=== PATIENT | male | born 1985 | race American Indian/Alaskan Native ===

== ENCOUNTER 2016-06-25 06:51 | Inpatient (IN) | payer SELFPAY ==
[2016-06-25] MEDS ORDERED: NACL 0.9% 1000 ML 1,000 ML ONE (07:09)
[2016-06-25] MEDS ORDERED: NACL 0.9% 1000 ML 1,000 ML IV ONE ×3 (07:18→07:19)
[2016-06-25] MEDS ORDERED: D50W (25GM) IV PRN ×2 (07:19→10:42)
[2016-06-25 07:35] LABS: Eosinophils % (Auto) 0.2 % (0.0-4.3)
[2016-06-25] MEDS ORDERED: PROTONIX IV ONE (07:36)
[2016-06-25] MEDS ORDERED: ZOFRAN IV ONE ×2 (07:36→09:20)
[2016-06-25 07:45] LABS: Hematocrit 57.2 % (35.5-45.6); Hemoglobin 15.8 gm/dl (11.8-15.2); Mean Corpuscular Volume 104 fl (84-94); Red Blood Count 5.53 M/mm3 (3.65-5.03); White Blood Count 6.3 K/mm3 (4.5-11.0)
[2016-06-25 07:46] LABS: Mean Corpuscular HGB Conc 28 % (32-34); Mean Corpuscular Hemoglobin 29 pg (28-32); Platelet Count 162 K/mm3 (140-440); Red Cell Distribution Width 15.9 % (13.2-15.2)
[2016-06-25 07:56] LABS: Calcium 10.1 mg/dL (8.4-10.2); Chloride 75.2 mmol/L (98-107); Potassium 5.5 mmol/L (3.6-5.0)
[2016-06-25] MEDS ORDERED: NovoLIN R 100 UNITS in NACL 0.9% 99 ML IV SCH (08:00)
--- NOTE | 2016-06-25 08:24 | Emergency Department Report ---
ED N/V/D HPI - General Chief complaint: Hyperglycemia Stated complaint: HYPERGLYCEMIA Time Seen by Provider: 06/25/16 07:14 Source: patient, EMS Mode of arrival: Stretcher Limitations: No Limitations - History of Present Illness Initial comments: 31-year-old male with a past medical history of insulin dependent diabetes and hypertension presents to the hospital with vomiting and decreased mental status. History obtained from the since patient is drowsy and not consistently responding to questions. Patient has had vomiting with poor by mouth tolerance of the past 4 days. Patient was recently diagnosed with insulin dependent diabetes one month ago. He was admitted to [facility] with a glucose over 1600. Patient has been compliant with his medications however, he never followed up with his follow-up [facility] appointment for medication adjustment. Patient has also not been monitoring his sugars at home and has been drinking fruit punch. reports that he has had several episodes of hematemesis. Patient denies any specific abdominal or chest pain. - Related Data Home Medications Medication Instructions Recorded Confirmed Last Taken Insulin Glargine [Lantus] 30 units SQ QHS 06/25/16 06/25/16 Unknown Insulin Lispro [HumaLOG VIAL] 15 units SQ AC 06/25/16 06/25/16 Unknown Allergies Allergy/AdvReac Type Severity Reaction Status Date / Time Penicillins Allergy Unknown Verified 06/25/16 07:10 ED Review of Systems ROS: Stated complaint: HYPERGLYCEMIA Other details as noted in HPI Comment: Unobtainable due to pts medical conditions (limited due to depressed mental status) ED Past Medical Hx - Past Medical History Previous Medical History?: Yes Hx Hypertension: Yes Hx Diabetes: Yes - Surgical History Past Surgical History?: No - Social History Smoking Status: Never Smoker Substance Use Type: None - Medications Home Medications: Home Medications Medication Instructions Recorded Confirmed Last Taken Type Insulin Glargine [Lantus] 30 units SQ QHS 06/25/16 06/25/16 Unknown History Insulin Lispro [HumaLOG VIAL] 15 units SQ AC 06/25/16 06/25/16 Unknown History ED Physical Exam - General Limitations: No Limitations - Other Other exam information: General: Lethargic diminished mental status Head exam: Atraumatic, normocephalic Eyes exam: Normal appearance ENT: Dry mucous membrane Neck exam: Normal inspection, full range of motion, no meningismus nontender Respiratory exam: Mild tachypnea Cardiovascular: Normal rate and rhythm, normal heart sounds Abdomen: Soft, nondistended, and nontender, with normal bowel sounds, no rebound, or guarding Extremity: Full range of motion normal inspection no deformity Back: Normal Inspection, full range of motion, no tenderness Neurologic: Lethargic but open eyes to voice and follows commands. slow to respond to questions. Equal hand advanced nursing professor and foot dorsiflexion. Generalized weakness Skin: Warm, dry, intact ED Course Vital Signs 06/25/16 06/25/16 06/25/16 06:52 07:00 07:02 Temperature 93.7 F L Pulse Rate 102 H 98 H 94 H Pulse Rate [ Radial] Respiratory 24 14 Rate Blood Pressure 93/52 93/54 Blood Pressure [Right] O2 Sat by Pulse 98 99 99 Oximetry 06/25/16 06/25/16 06/25/16 07:10 07:20 07:30 Temperature Pulse Rate 96 H 95 H 95 H Pulse Rate [ Radial] Respiratory 21 21 24 Rate Blood Pressure 98/53 98/53 98/53 Blood Pressure [Right] O2 Sat by Pulse 99 97 Oximetry 06/25/16 06/25/16 06/25/16 07:40 07:48 07:50 Temperature Pulse Rate 97 H 98 H Pulse Rate [ Radial] Respiratory 22 25 H 25 H Rate Blood Pressure Blood Pressure [Right] O2 Sat by Pulse 98 96 98 Oximetry 06/25/16 06/25/16 06/25/16 07:55 08:00 08:10 Temperature Pulse Rate 98 H 98 H 99 H Pulse Rate [ Radial] Respiratory 24 25 H 23 Rate Blood Pressure 86/44 86/44 Blood Pressure 100/50 [Right] O2 Sat by Pulse 97 97 98 Oximetry 06/25/16 06/25/16 06/25/16 08:20 08:30 08:40 Temperature Pulse Rate 97 H 99 H 96 H Pulse Rate [ Radial] Respiratory 25 H 24 0 L Rate Blood Pressure 86/44 86/44 86/44 Blood Pressure [Right] O2 Sat by Pulse 98 97 98 Oximetry 06/25/16 06/25/16 06/25/16 08:50 09:00 09:10 Temperature Pulse Rate 95 H 93 H 94 H Pulse Rate [ Radial] Respiratory 19 18 17 Rate Blood Pressure 86/44 86/44 108/65 Blood Pressure [Right] O2 Sat by Pulse 99 100 99 Oximetry 06/25/16 06/25/16 06/25/16 09:20 09:30 09:40 Temperature Pulse Rate 93 H 91 H 95 H Pulse Rate [ Radial] Respiratory 19 20 15 Rate Blood Pressure 108/65 108/65 108/65 Blood Pressure [Right] O2 Sat by Pulse 98 99 91 Oximetry 06/25/16 06/25/16 06/25/16 09:50 10:00 10:10 Temperature Pulse Rate 99 H 99 H 104 H Pulse Rate [ Radial] Respiratory 22 15 24 Rate Blood Pressure 108/65 101/58 101/58 Blood Pressure [Right] O2 Sat by Pulse 92 94 94 Oximetry 06/25/16 06/25/16 06/25/16 10:20 10:30 10:40 Temperature Pulse Rate 105 H 109 H 112 H Pulse Rate [ Radial] Respiratory 14 26 H 16 Rate Blood Pressure 101/58 101/58 101/58 Blood Pressure [Right] O2 Sat by Pulse 95 95 97 Oximetry 06/25/16 06/25/16 06/25/16 10:50 11:00 11:10 Temperature Pulse Rate 110 H 109 H 110 H Pulse Rate [ Radial] Respiratory 17 15 13 Rate Blood Pressure 101/58 93/49 93/49 Blood Pressure [Right] O2 Sat by Pulse 94 96 98 Oximetry 06/25/16 06/25/16 06/25/16 11:20 11:30 11:35 Temperature 97.5 F L Pulse Rate 109 H Pulse Rate [ Radial] Respiratory 12 Rate Blood Pressure 93/49 93/49 Blood Pressure [Right] O2 Sat by Pulse 98 98 Oximetry 06/25/16 06/25/16 06/25/16 11:40 11:50 12:00 Temperature Pulse Rate 107 H 111 H 108 H Pulse Rate [ Radial] Respiratory 13 11 L 10 L Rate Blood Pressure 93/49 93/49 93/49 Blood Pressure [Right] O2 Sat by Pulse 98 97 96 Oximetry 06/25/16 06/25/16 06/25/16 12:10 12:20 12:30 Temperature Pulse Rate 113 H 113 H 114 H Pulse Rate [ Radial] Respiratory 23 21 15 Rate Blood Pressure 93/49 93/49 93/49 Blood Pressure [Right] O2 Sat by Pulse 92 94 98 Oximetry 06/25/16 06/25/16 06/25/16 12:40 12:50 13:00 Temperature Pulse Rate 115 H 116 H 116 H Pulse Rate [ Radial] Respiratory 12 15 15 Rate Blood Pressure 93/49 93/49 93/49 Blood Pressure [Right] O2 Sat by Pulse 97 97 97 Oximetry 06/25/16 06/25/16 06/25/16 13:03 13:10 13:20 Temperature Pulse Rate 114 H 115 H Pulse Rate [ 117 H Radial] Respiratory 25 H 26 H Rate Blood Pressure 89/49 89/49 Blood Pressure [Right] O2 Sat by Pulse 97 98 Oximetry 06/25/16 06/25/16 06/25/16 13:30 13:40 13:50 Temperature Pulse Rate 118 H 120 H 121 H Pulse Rate [ Radial] Respiratory 28 H 26 H 28 H Rate Blood Pressure 89/49 85/42 85/42 Blood Pressure [Right] O2 Sat by Pulse 98 98 97 Oximetry 06/25/16 06/25/16 06/25/16 14:00 14:03 14:10 Temperature 96.1 F L Pulse Rate 122 H 121 H 125 H Pulse Rate [ Radial] Respiratory 27 H 23 27 H Rate Blood Pressure 80/42 80/42 Blood Pressure [Right] O2 Sat by Pulse 97 98 98 Oximetry 06/25/16 06/25/16 06/25/16 14:20 14:30 14:40 Temperature Pulse Rate 127 H 126 H 127 H Pulse Rate [ Radial] Respiratory 25 H 21 16 Rate Blood Pressure 80/42 84/45 84/45 Blood Pressure [Right] O2 Sat by Pulse 98 98 97 Oximetry 06/25/16 06/25/16 14:50 15:00 Temperature Pulse Rate 127 H 125 H Pulse Rate [ Radial] Respiratory 20 19 Rate Blood Pressure 84/45 86/52 Blood Pressure [Right] O2 Sat by Pulse 98 92 Oximetry - Reevaluation(s) Reevaluation #1: 06/25/16 08:35 Patient vital signs stable. no vomiting in the ED - Consultations Consultation #1: 06/25/16 08:[address] 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 Consult ordered and he will evaluate ED Medical Decision Making - Lab Data Result diagrams: 06/25/16 07:16 06/25/16 14:35 Lab Results 06/25/16 06/25/16 06/25/16 Range/Units 07:01 07:16 07:16 WBC 6.3 (4.5-11.0) K/mm3 RBC 5.53 H (3.65-5.03) M/mm3 Hgb 15.8 H (11.8-15.2) gm/dl Hct 57.2 H (35.5-45.6) % MCV 104 H (84-94) fl MCH 29 (28-32) pg MCHC 28 L (32-34) % RDW 15.9 H (13.2-15.2) % Plt Count 162 (140-440) K/mm3 Lymph % (Auto) 7.0 L (13.4-35.0) % [place] % (Auto) 9.9 H (0.0-7.3) % Eos % (Auto) 0.2 (0.0-4.3) % Baso % (Auto) 0.0 (0.0-1.8) % Lymph # 0.4 L (1.2-5.4) K/mm3 [place] # 0.6 (0.0-0.8) K/mm3 Eos # 0.0 (0.0-0.4) K/mm3 Baso # 0.0 (0.0-0.1) K/mm3 Seg Neutrophils % 82.6 H (40.0-70.0) % Seg Neutrophils # 5.2 (1.8-7.7) K/mm3 VBG pH (7.320-7.420) Sodium 115 L* (137-145) mmol/L Potassium 5.5 H (3.6-5.0) mmol/L Chloride 75.2 L (98-107) mmol/L Carbon Dioxide 18 L (22-30) mmol/L Anion Gap 27 mmol/L BUN 75 H (9-20) mg/dL Creatinine 5.0 H (0.8-1.5) mg/dL Estimated GFR 17 ml/min BUN/Creatinine Ratio 15.00 % Glucose 1959 H* (75-100) mg/dL POC Glucose > 500 H (70-105) Calcium 10.1 (8.4-10.2) mg/dL Phosphorus (2.5-4.5) mg/dL Magnesium (1.7-2.3) mg/dL Total Bilirubin (0.1-1.2) mg/dL Direct Bilirubin (0-0.2) mg/dL Indirect Bilirubin mg/dL AST (5-40) units/L ALT (7-56) units/L Alkaline Phosphatase (35-129) units/L Total Protein (6.3-8.2) g/dL Albumin (3.9-5) g/dL Albumin/Globulin Ratio % Lipase (13-60) units/L Urine Color (Yellow) Urine Turbidity (Clear) Urine pH (5.0-7.0) Ur Specific [place] (1.003-1.030) Urine Protein (Negative) mg/dL Urine Glucose (UA) (Negative) mg/dL Urine Ketones (Negative) mg/dL Urine Blood (Negative) Urine Nitrite (Negative) Urine Bilirubin (Negative) Urine Urobilinogen (<2.0) mg/dL Ur Leukocyte Esterase (Negative) Urine WBC (Auto) (0.0-6.0) /HPF Urine RBC (Auto) (0.0-6.0) /HPF Urine Bacteria (Auto) (Negative) /HPF Urine Mucus /HPF 06/25/16 06/25/16 06/25/16 Range/Units 07:16 07:16 07:24 WBC (4.5-11.0) K/mm3 RBC (3.65-5.03) M/mm3 Hgb (11.8-15.2) gm/dl Hct (35.5-45.6) % MCV (84-94) fl MCH (28-32) pg MCHC (32-34) % RDW (13.2-15.2) % Plt Count (140-440) K/mm3 Lymph % (Auto) (13.4-35.0) % [place] % (Auto) (0.0-7.3) % Eos % (Auto) (0.0-4.3) % Baso % (Auto) (0.0-1.8) % Lymph # (1.2-5.4) K/mm3 [place] # (0.0-0.8) K/mm3 Eos # (0.0-0.4) K/mm3 Baso # (0.0-0.1) K/mm3 Seg Neutrophils % (40.0-70.0) % Seg Neutrophils # (1.8-7.7) K/mm3 VBG pH 7.173 L* (7.320-7.420) Sodium (137-145) mmol/L Potassium (3.6-5.0) mmol/L Chloride (98-107) mmol/L Carbon Dioxide (22-30) mmol/L Anion Gap mmol/L BUN (9-20) mg/dL Creatinine (0.8-1.5) mg/dL Estimated GFR ml/min BUN/Creatinine Ratio % Glucose (75-100) mg/dL POC Glucose (70-105) Calcium (8.4-10.2) mg/dL Phosphorus 4.3 (2.5-4.5) mg/dL Magnesium 3.6 H (1.7-2.3) mg/dL Total Bilirubin 0.3 (0.1-1.2) mg/dL Direct Bilirubin 0.3 H (0-0.2) mg/dL Indirect Bilirubin 0.0 mg/dL AST 9 (5-40) units/L ALT 15 (7-56) units/L Alkaline Phosphatase 135 H (35-129) units/L Total Protein 8.1 (6.3-8.2) g/dL Albumin 4.3 (3.9-5) g/dL Albumin/Globulin Ratio 1.1 % Lipase 73 H (13-60) units/L Urine Color (Yellow) Urine Turbidity (Clear) Urine pH (5.0-7.0) Ur Specific [place] (1.003-1.030) Urine Protein (Negative) mg/dL Urine Glucose (UA) (Negative) mg/dL Urine Ketones (Negative) mg/dL Urine Blood (Negative) Urine Nitrite (Negative) Urine Bilirubin (Negative) Urine Urobilinogen (<2.0) mg/dL Ur Leukocyte Esterase (Negative) Urine WBC (Auto) (0.0-6.0) /HPF Urine RBC (Auto) (0.0-6.0) /HPF Urine Bacteria (Auto) (Negative) /HPF Urine Mucus /HPF 06/25/16 06/25/16 06/25/16 Range/Units 08:12 09:57 10:01 WBC (4.5-11.0) K/mm3 RBC (3.65-5.03) M/mm3 Hgb (11.8-15.2) gm/dl Hct (35.5-45.6) % MCV (84-94) fl MCH (28-32) pg MCHC (32-34) % RDW (13.2-15.2) % Plt Count (140-440) K/mm3 Lymph % (Auto) (13.4-35.0) % [place] % (Auto) (0.0-7.3) % Eos % (Auto) (0.0-4.3) % Baso % (Auto) (0.0-1.8) % Lymph # (1.2-5.4) K/mm3 [place] # (0.0-0.8) K/mm3 Eos # (0.0-0.4) K/mm3 Baso # (0.0-0.1) K/mm3 Seg Neutrophils % (40.0-70.0) % Seg Neutrophils # (1.8-7.7) K/mm3 VBG pH (7.320-7.420) Sodium 132 L D (137-145) mmol/L Potassium (3.6-5.0) mmol/L Chloride (98-107) mmol/L Carbon Dioxide 19 L (22-30) mmol/L Anion Gap mmol/L BUN 67 H (9-20) mg/dL Creatinine 4.5 H (0.8-1.5) mg/dL Estimated GFR 19 ml/min BUN/Creatinine Ratio 14.88 % Glucose 1453 H* (75-100) mg/dL POC Glucose > 500 H > 500 H (70-105) Calcium 9.5 (8.4-10.2) mg/dL Phosphorus (2.5-4.5) mg/dL Magnesium (1.7-2.3) mg/dL Total Bilirubin (0.1-1.2) mg/dL Direct Bilirubin (0-0.2) mg/dL Indirect Bilirubin mg/dL AST (5-40) units/L ALT (7-56) units/L Alkaline Phosphatase (35-129) units/L Total Protein (6.3-8.2) g/dL Albumin (3.9-5) g/dL Albumin/Globulin Ratio % Lipase (13-60) units/L Urine Color (Yellow) Urine Turbidity (Clear) Urine pH (5.0-7.0) Ur Specific [place] (1.003-1.030) Urine Protein (Negative) mg/dL Urine Glucose (UA) (Negative) mg/dL Urine Ketones (Negative) mg/dL Urine Blood (Negative) Urine Nitrite (Negative) Urine Bilirubin (Negative) Urine Urobilinogen (<2.0) mg/dL Ur Leukocyte Esterase (Negative) Urine WBC (Auto) (0.0-6.0) /HPF Urine RBC (Auto) (0.0-6.0) /HPF Urine Bacteria (Auto) (Negative) /HPF Urine Mucus /HPF 06/25/16 06/25/16 06/25/16 Range/Units 10:01 11:24 12:54 WBC (4.5-11.0) K/mm3 RBC (3.65-5.03) M/mm3 Hgb (11.8-15.2) gm/dl Hct (35.5-45.6) % MCV (84-94) fl MCH (28-32) pg MCHC (32-34) % RDW (13.2-15.2) % Plt Count (140-440) K/mm3 Lymph % (Auto) (13.4-35.0) % [place] % (Auto) (0.0-7.3) % Eos % (Auto) (0.0-4.3) % Baso % (Auto) (0.0-1.8) % Lymph # (1.2-5.4) K/mm3 [place] # (0.0-0.8) K/mm3 Eos # (0.0-0.4) K/mm3 Baso # (0.0-0.1) K/mm3 Seg Neutrophils % (40.0-70.0) % Seg Neutrophils # (1.8-7.7) K/mm3 VBG pH (7.320-7.420) Sodium (137-145) mmol/L Potassium (3.6-5.0) mmol/L Chloride (98-107) mmol/L Carbon Dioxide (22-30) mmol/L Anion Gap mmol/L BUN (9-20) mg/dL Creatinine (0.8-1.5) mg/dL Estimated GFR ml/min BUN/Creatinine Ratio % Glucose (75-100) mg/dL POC Glucose > 500 H > 500 H (70-105) Calcium (8.4-10.2) mg/dL Phosphorus 1.9 L D (2.5-4.5) mg/dL Magnesium 3.3 H (1.7-2.3) mg/dL Total Bilirubin (0.1-1.2) mg/dL Direct Bilirubin (0-0.2) mg/dL Indirect Bilirubin mg/dL AST (5-40) units/L ALT (7-56) units/L Alkaline Phosphatase (35-129) units/L Total Protein (6.3-8.2) g/dL Albumin (3.9-5) g/dL Albumin/Globulin Ratio % Lipase (13-60) units/L Urine Color (Yellow) Urine Turbidity (Clear) Urine pH (5.0-7.0) Ur Specific [place] (1.003-1.030) Urine Protein (Negative) mg/dL Urine Glucose (UA) (Negative) mg/dL Urine Ketones (Negative) mg/dL Urine Blood (Negative) Urine Nitrite (Negative) Urine Bilirubin (Negative) Urine Urobilinogen (<2.0) mg/dL Ur Leukocyte Esterase (Negative) Urine WBC (Auto) (0.0-6.0) /HPF Urine RBC (Auto) (0.0-6.0) /HPF Urine Bacteria (Auto) (Negative) /HPF Urine Mucus /HPF 06/25/16 06/25/16 06/25/16 Range/Units 14:12 14:35 Unknown WBC (4.5-11.0) K/mm3 RBC (3.65-5.03) M/mm3 Hgb (11.8-15.2) gm/dl Hct (35.5-45.6) % MCV (84-94) fl MCH (28-32) pg MCHC (32-34) % RDW (13.2-15.2) % Plt Count (140-440) K/mm3 Lymph % (Auto) (13.4-35.0) % [place] % (Auto) (0.0-7.3) % Eos % (Auto) (0.0-4.3) % Baso % (Auto) (0.0-1.8) % Lymph # (1.2-5.4) K/mm3 [place] # (0.0-0.8) K/mm3 Eos # (0.0-0.4) K/mm3 Baso # (0.0-0.1) K/mm3 Seg Neutrophils % (40.0-70.0) % Seg Neutrophils # (1.8-7.7) K/mm3 VBG pH (7.320-7.420) Sodium 144 D (137-145) mmol/L Potassium 4.1 (3.6-5.0) mmol/L Chloride 105.0 (98-107) mmol/L Carbon Dioxide 19 L (22-30) mmol/L Anion Gap 24 mmol/L BUN 63 H (9-20) mg/dL Creatinine 4.5 H (0.8-1.5) mg/dL Estimated GFR 19 ml/min BUN/Creatinine Ratio 14.00 % Glucose 840 H* (75-100) mg/dL POC Glucose > 500 H (70-105) Calcium 9.9 (8.4-10.2) mg/dL Phosphorus (2.5-4.5) mg/dL Magnesium (1.7-2.3) mg/dL Total Bilirubin (0.1-1.2) mg/dL Direct Bilirubin (0-0.2) mg/dL Indirect Bilirubin mg/dL AST (5-40) units/L ALT (7-56) units/L Alkaline Phosphatase (35-129) units/L Total Protein (6.3-8.2) g/dL Albumin (3.9-5) g/dL Albumin/Globulin Ratio % Lipase (13-60) units/L Urine Color Straw (Yellow) Urine Turbidity Clear (Clear) Urine pH 5.0 (5.0-7.0) Ur Specific [place] 1.022 (1.003-1.030) Urine Protein <15 mg/dl (Negative) mg/dL Urine Glucose (UA) >=500 (Negative) mg/dL Urine Ketones Neg (Negative) mg/dL Urine Blood Mod (Negative) Urine Nitrite Neg (Negative) Urine Bilirubin Neg (Negative) Urine Urobilinogen < 2.0 (<2.0) mg/dL Ur Leukocyte Esterase Neg (Negative) Urine WBC (Auto) 9.0 H (0.0-6.0) /HPF Urine RBC (Auto) 4.0 (0.0-6.0) /HPF Urine Bacteria (Auto) 1+ (Negative) /HPF Urine Mucus Few /HPF - Medical Decision Making Corrected sodium for hyperglycemia is 144 therefore patient is not truly hyponatremic Patient will be admitted to the hospital for DKA with the presumed acute renal insufficiency. No previous creatinine for comparison however, no reports of previous renal disease. In the ED patient received active warming, Protonix,, Zofran, 3 L of normal saline, insulin bolus with drip initiation. DKA protocol initiated - Differential Diagnosis dka, pancreatitis, sepsis, dehydration, medication noncompliance Critical Care Time: No Critical care attestation.: If time is entered above; I have spent that time in minutes in the direct care of this critically ill patient, excluding procedure time. ED Disposition Clinical Impression: DKA (diabetic ketoacidosis), Vomiting, Hematemesis, Acute renal failure, Hypothermia Disposition: OP ADMITTED IP TO THIS HOSP Is pt being admited?: Yes Condition: Stable Time of Disposition: 08:23
--- NOTE | 2016-06-25 08:48 | Consultation ---
History of Present Illness - Reason for Consult Consult date: 06/25/16 acute renal failure, hyperkalemia, metabolic acidosis Requesting physician: ROXANNA SIDDIQUI - History of Present Illness 31-year-old male with a past medical history of insulin dependent diabetes and hypertension presents to the hospital with vomiting and decreased mental status. History obtained from the since patient is drowsy and not consistently responding to questions. Patient has had vomiting with poor by mouth tolerance of the past 4 days. Patient was recently diagnosed with insulin dependent diabetes one month ago. He was admitted to [facility] with a glucose over 1600. Patient has been compliant with his medications however, he never followed up with his follow-up [facility] appointment for medication adjustment. Patient has also not been monitoring his sugars at home and has been drinking fruit punch. reports that he has had several episodes of hematemesis. Patient denies any specific abdominal or chest pain Past History Past Medical History: diabetes Social history: lives with family Family history: diabetes Medications and Allergies Allergies Allergy/AdvReac Type Severity Reaction Status Date / Time Penicillins Allergy Unknown Verified 06/25/16 07:10 Home Medications Medication Instructions Recorded Confirmed Last Taken Type Insulin Glargine [Lantus] 30 units SQ QHS 06/25/16 06/25/16 Unknown History Insulin Lispro [HumaLOG VIAL] 15 units SQ AC 06/25/16 06/25/16 Unknown History Active Meds: Active Medications Dextrose (D50w (25gm)) 0 ml IV PRN PRN PRN Reason: Hypoglycemia Insulin Human Regular 100 (units/ Sodium Chloride) 100 mls @ 1 mls/hr IV TITR DIANA; 1 UNITS/HR PRN Reason: Protocol Review of Systems Constitutional: fatigue, weakness, malaise, lethargy Gastrointestinal: abdominal pain, nausea, vomiting, diarrhea, change in bowel habits Exam - Vital Signs Vital signs: Vital Signs Temp Pulse BP Pulse Ox 93.7 F L 94 H 93/54 99 06/25/16 07:02 06/25/16 07:02 06/25/16 07:02 06/25/16 07:02 - Physical Exam Narrative exam: General: Lethargic diminished mental status Head exam: Atraumatic, normocephalic Eyes exam: Normal appearance ENT: Dry mucous membrane Neck exam: Normal inspection, full range of motion, no meningismus nontender Respiratory exam: Mild tachypnea Cardiovascular: Normal rate and rhythm, normal heart sounds Abdomen: Soft, nondistended, and nontender, with normal bowel sounds, no rebound, or guarding Extremity: Full range of motion normal inspection no deformity Back: Normal Inspection, full range of motion, no tenderness Neurologic: Lethargic but open eyes to voice and follows commands. Flow to respond to questions. Equal hand feed preparation operator and foot dorsiflexion. Generalized weakness Skin: Warm, dry, intact Results - Lab Results 06/25/16 07:16 06/25/16 07:16 Most recent lab results Calcium 10.1 mg/dL (8.4-10.2) 06/25/16 07:16 Assessment and Plan Impression: * sigrid * metabolic acidosis * nausea/emesis * volume depletion * DKA * pseudohypernatremia Plan: * ivf resuscitation with ns intially * control glucose * strict i/os * ua and urine lytes * renal us * no emergent indication for ruby [employer] consultant at this time, but is high risk for ATN * avoid nephrotoxins * serial bmp, lytes
--- NOTE | 2016-06-25 08:58 | Admit Criteria Form ---
Admission Criteria Documentation: DIABETES Clinical Indications for Admission to Inpatient Care (Place 'X' for any and all applicable criteria): Admission is indicated by presence of ALL (if I & II) or ANY ONE (if III or IV) of the following (1)(2)(3)(4): [X]I. Diabetes is uncontrolled as indicated by ANY ONE of the following: [X]a) Diabetic ketoacidosis as indicated by ALL of the following (8): [X]i) Hyperglycemia (eg, plasma glucose greater than 200 mg/ dL (11.1 mmol/L)) [X]ii) Acidosis (eg, arterial pH less than 7.30, serum bicarbonate level less than 15 mEq/L (mmol/L)) [ ]iii) Moderate ketonuria or ketonemia [ ]b) Hyperglycemic hyperosmolar state as indicated by ALL of the following(9)(10): [ ]i) Neurologic dysfunction (eg, stupor, coma, hemiparesis , seizure)(13) [ ]ii) Plasma glucose greater than 600 mg/dL (33.3 mmol/L) [ ]iii) Serum osmolality greater than 320 mOsm/kg (mmol/kg) [X]c) Severe signs or symptoms secondary to hyperglycemia indicated by ANY ONE of the following: [ ]i) Altered mental status(10) [ ]ii) Significant hypovolemia or dehydration [ ]iii) Intractable nausea or vomiting [ ]iv) Unexplained fever or severe infection [X]v) Severe electrolyte abnormality (eg, hypokalemia, hyperkalemia, hypernatremia) [ ]II. Management at other levels of care (Also use Diabetes: Observation Care as appropriate) is not feasible because of ANY ONE of the following: [ ]a) Condition was not adequately corrected with treatment at other levels of care. [ ]b) Treatment at other levels of care is not appropriate because of condition severity (eg, hyperosmolar coma). [ ]III. Contraindications and/or Inappropriate clinical situations for Observational Care in patients with Diabetes, when ANY ONE of the following is required: [ ]a) Patient require specific diagnostic workup or therapeutic intervention 22 [ ]b) Patient with abnormal vital signs or altered mental status 23 [ ]IV. General contraindications and/or Inappropriate clinical situations for Observational Care in patients with Diabetes, when ANY ONE of the following is required: [ ]a) Prediction of prolongation of LOS based on ANY ONE of the following may be considered as a contraindication for observational care 2, 3, 4, 5, 6, 7, 8, 9, 10, 11 [ ]i) Age > 65 yrs. [ ]ii) Patient arriving by ambulance [ ]iii) Patient with high acuity [ ]iv) Patient requiring vital sign monitoring [ ]v) Patient on IV medication [ ]b) Systolic blood pressures 180mmHg 3,12 [ ]c) Patient with altered mental status including delirium and other alteration of consciousness, (3) [ ]d) Patient whose discharge disposition will be to a alf home or rehabilitation home should not be managed in Emergency Department Observation Unit. CMS rule requires 3 days hospital stay before such placement.3,13 [ ]e) Patient with failure to thrive due to broad array of etiologies 3,16,17 [ ]f) Inability to ambulate 3,14 Extended stay beyond goal length of stay may be needed for(3)(20): [ ]a) Treatment of precipitating causes [ ]b) Development of hypoglycemia [ ]c) Complications of treatment [ ]d) Complications of decompensated diabetes (eg, acute gastric dilatation, persistent metabolic or neurologic derangement) [ ]e) Active Comorbidities [ ]f) Older patients( 65 years or older) The original [employer] content created by [employer] has been revised. The portions of the content which have been revised are identified through the use of italic text or in bold,and [facility] has neither reviewed nor approved the modified material. All other unmodified content is copyright [employer]. Please see references footnoted in the original [facility] edition 2016 Admission Criteria Met: Yes
[2016-06-25] MEDS ORDERED: NACL 0.9% 1000 ML 1,000 ML IV SCH (09:00)
[2016-06-25 10:08] LABS: Bacteria,Urine 1+ /HPF (Negative); Bilirubin,Urine NEG (Negative); Blood,Urine MOD (Negative); Ketones,Urine NEG (Negative); Leukocyte Esterase,Urine NEG (Negative); Mucus,Urine FEW /HPF; Nitrite,Urine NEG (Negative); Protein,Urine <15 mg/dL mg/dL (Negative); Urobilinogen,Urine < 2.0 mg/dL (<2.0)
[2016-06-25 10:09] LABS: Albumin 4.3 g/dL (3.9-5); Albumin/Globulin Ratio 1.1 %; Bilirubin,Direct 0.3 mg/dL (0-0.2); Bilirubin,Total 0.3 mg/dL (0.1-1.2); Total Protein 8.1 g/dL (6.3-8.2)
[2016-06-25 10:18] LABS: Magnesium 3.6 mg/dL (1.7-2.3); Phosphorous 4.3 mg/dL (2.5-4.5)
--- NOTE | 2016-06-25 10:37 | History and Physical Report ---
History of Present Illness Date of examination: 06/25/16 Date of admission: 06/25/16 08:24 Chief complaint: dka History of present illness: 31-year-old male with a past medical history of insulin dependent diabetes and hypertension presents to the hospital with vomiting and decreased mental status. Patient has had vomiting with poor by mouth tolerance of the past 4 days. Patient was recently diagnosed with insulin dependent diabetes one month ago. He was admitted to [place] with a glucose over 1600. Patient has been compliant with his medications however, he never followed up with his follow-up [place] appointment for medication adjustment. Patient has also not been monitoring his sugars at home and has been noncompliant with his diet. Patient denies any specific abdominal or chest pain. Past History Past Medical History: diabetes Social history: lives with family Family history: diabetes Medications and Allergies Allergies Allergy/AdvReac Type Severity Reaction Status Date / Time Penicillins Allergy Unknown Verified 06/25/16 07:10 Home Medications Medication Instructions Recorded Confirmed Last Taken Type Insulin Glargine [Lantus] 30 units SQ QHS 06/25/16 06/25/16 Unknown History Insulin Lispro [HumaLOG VIAL] 15 units SQ AC 06/25/16 06/25/16 Unknown History Active Meds: Active Medications Dextrose (D50w (25gm)) 0 ml IV PRN PRN PRN Reason: Hypoglycemia Insulin Human Regular 100 (units/ Sodium Chloride) 100 mls @ 1 mls/hr IV TITR DIANA; 1 UNITS/HR PRN Reason: Protocol Last Titration: 06/25/16 10:24 Dose: 11 units/hr, 11 mls/hr Sodium Chloride (Nacl 0.9% 1000 Ml) 1,000 mls @ 125 mls/hr IV DIRECT DIANA Stop: 06/25/16 23:59 Review of Systems All systems: negative Exam - Constitutional Vitals: Temp Pulse Resp BP Pulse Ox 93.7 F L 98 H 24 100/50 97 06/25/16 07:02 06/25/16 07:55 06/25/16 07:55 06/25/16 07:55 06/25/16 07:55 General appearance: Present: no acute distress, well-nourished - EENT Eyes: Present: PERRL ENT: hearing intact, clear oral mucosa - Neck Neck: Present: supple, normal ROM - Respiratory Respiratory effort: normal Respiratory: bilateral: CTA - Cardiovascular Heart Sounds: Present: S1 & S2. Absent: rub, click - Extremities Extremities: pulses symmetrical, No edema Peripheral Pulses: within normal limits - Abdominal General gastrointestinal: Present: soft, non-tender, non-distended, normal bowel sounds Male genitourinary: Present: normal - Integumentary Integumentary: Present: clear, warm, dry - Musculoskeletal Musculoskeletal: gait normal, strength equal bilaterally - Psychiatric Psychiatric: appropriate mood/affect, intact judgment & insight - Neurologic Neurologic: CNII-XII intact, moves all extremities Results - Labs CBC & Chem 7: 06/25/16 07:16 06/25/16 07:16 Labs: Laboratory Last Values WBC 6.3 K/mm3 (4.5-11.0) 06/25/16 07:16 RBC 5.53 M/mm3 (3.65-5.03) H 06/25/16 07:16 Hgb 15.8 gm/dl (11.8-15.2) H 06/25/16 07:16 Hct 57.2 % (35.5-45.6) H 06/25/16 07:16 MCV 104 fl (84-94) H 06/25/16 07:16 MCH 29 pg (28-32) 06/25/16 07:16 MCHC 28 % (32-34) L 06/25/16 07:16 RDW 15.9 % (13.2-15.2) H 06/25/16 07:16 Plt Count 162 K/mm3 (140-440) 06/25/16 07:16 Lymph % (Auto) 7.0 % (13.4-35.0) L 06/25/16 07:16 [place] % (Auto) 9.9 % (0.0-7.3) H 06/25/16 07:16 Eos % (Auto) 0.2 % (0.0-4.3) 06/25/16 07:16 Baso % (Auto) 0.0 % (0.0-1.8) 06/25/16 07:16 Lymph # 0.4 K/mm3 (1.2-5.4) L 06/25/16 07:16 [place] # 0.6 K/mm3 (0.0-0.8) 06/25/16 07:16 Eos # 0.0 K/mm3 (0.0-0.4) 06/25/16 07:16 Baso # 0.0 K/mm3 (0.0-0.1) 06/25/16 07:16 Seg Neutrophils % 82.6 % (40.0-70.0) H 06/25/16 07:16 Seg Neutrophils # 5.2 K/mm3 (1.8-7.7) 06/25/16 07:16 VBG pH 7.173 (7.320-7.420) L* 06/25/16 07:16 Sodium 115 mmol/L (137-145) L* 06/25/16 07:16 Potassium 5.5 mmol/L (3.6-5.0) H 06/25/16 07:16 Chloride 75.2 mmol/L (98-107) L 06/25/16 07:16 Carbon Dioxide 18 mmol/L (22-30) L 06/25/16 07:16 Anion Gap 27 mmol/L 06/25/16 07:16 BUN 75 mg/dL (9-20) H 06/25/16 07:16 Creatinine 5.0 mg/dL (0.8-1.5) H 06/25/16 07:16 Estimated GFR 17 ml/min 06/25/16 07:16 BUN/Creatinine Ratio 15.00 % 06/25/16 07:16 Glucose 1959 mg/dL (75-100) H* 06/25/16 07:16 POC Glucose > 500 (70-105) H 06/25/16 09:57 Calcium 10.1 mg/dL (8.4-10.2) 06/25/16 07:16 Phosphorus 4.3 mg/dL (2.5-4.5) 06/25/16 07:24 Magnesium 3.6 mg/dL (1.7-2.3) H 06/25/16 07:24 Total Bilirubin 0.3 mg/dL (0.1-1.2) 06/25/16 07:16 Direct Bilirubin 0.3 mg/dL (0-0.2) H 06/25/16 07:16 Indirect Bilirubin 0.0 mg/dL 06/25/16 07:16 AST 9 units/L (5-40) 06/25/16 07:16 ALT 15 units/L (7-56) 06/25/16 07:16 Alkaline Phosphatase 135 units/L (35-129) H 06/25/16 07:16 Total Protein 8.1 g/dL (6.3-8.2) 06/25/16 07:16 Albumin 4.3 g/dL (3.9-5) 06/25/16 07:16 Albumin/Globulin Ratio 1.1 % 06/25/16 07:16 Lipase 73 units/L (13-60) H 06/25/16 07:16 Urine Color Straw (Yellow) 06/25/16 Unknown Urine Turbidity Clear (Clear) 06/25/16 Unknown Urine pH 5.0 (5.0-7.0) 06/25/16 Unknown Ur Specific [place] 1.022 (1.003-1.030) 06/25/16 Unknown Urine Protein <15 mg/dl mg/dL (Negative) 06/25/16 Unknown Urine Glucose (UA) >=500 mg/dL (Negative) 06/25/16 Unknown Urine Ketones Neg mg/dL (Negative) 06/25/16 Unknown Urine Blood Mod (Negative) 06/25/16 Unknown Urine Nitrite Neg (Negative) 06/25/16 Unknown Urine Bilirubin Neg (Negative) 06/25/16 Unknown Urine Urobilinogen < 2.0 mg/dL (<2.0) 06/25/16 Unknown Ur Leukocyte Esterase Neg (Negative) 06/25/16 Unknown Urine WBC (Auto) 9.0 /HPF (0.0-6.0) H 06/25/16 Unknown Urine RBC (Auto) 4.0 /HPF (0.0-6.0) 06/25/16 Unknown Urine Bacteria (Auto) 1+ /HPF (Negative) 06/25/16 Unknown Urine Mucus Few /HPF 06/25/16 Unknown Assessment and Plan Assessment and plan: 1. DKA. Patient will be placed on the DKA pathway. Continue IV fluids and IV insulin. We will rule out any infectious etiology. 2. Medical noncompliance. Patient will be counseled. 3. Acute kidney injury. Continue aggressive IV fluid hydration. Follow renal ultrasound. Follow-up urinalysis and urine electrolytes. Strict I and Os. Follow serial BMP. Nephrology consultation pending. 4. Pseudohyponatremia. IV fluid hydration and treatment of DKA. 5. Volume depletion. As above.
[2016-06-25] MEDS ORDERED: TYLENOL PO PRN (10:42)
[2016-06-25] MEDS ORDERED: MILK OF MAGNESIA PO PRN (10:42)
[2016-06-25] MEDS ORDERED: DULCOLAX PR PRN (10:42)
[2016-06-25] MEDS ORDERED: ZOFRAN IV PRN (10:42)
[2016-06-25 11:31] LABS: BUN/Creatinine Ratio 14.88; Calcium 9.5 mg/dL (8.4-10.2); Chloride 92.8 mmol/L (98-107); Potassium 4.8 mmol/L (3.6-5.0)
[2016-06-25 11:44] LABS: Magnesium 3.3 mg/dL (1.7-2.3); Phosphorous 1.9 mg/dL (2.5-4.5)
[2016-06-25] MEDS: NACL 0.9% 1000 ML 1,000 ML IV SCH ×2 (14:35→16:21)
[2016-06-25 15:05] LABS: Calcium 9.9 mg/dL (8.4-10.2); Potassium 4.1 mmol/L (3.6-5.0)
[2016-06-25] MEDS ORDERED: NACL 0.9% 250ML 250 ML IV ONE (15:45)
[2016-06-25 16:00] LABS: BUN/Creatinine Ratio 13.4; Chloride 107.4 mmol/L (98-107); Potassium 3.9 mmol/L (3.6-5.0)
[2016-06-25] MEDS: NovoLIN R 100 UNITS in NACL 0.9% 99 ML IV SCH ×2 (16:22→19:31)
[2016-06-25 20:00] LABS: BUN/Creatinine Ratio 14.77; Calcium 9.8 mg/dL (8.4-10.2); Chloride 115.6 mmol/L (98-107); Potassium 3.6 mmol/L (3.6-5.0)
[2016-06-25] MEDS: D5W/0.45% NACL/KCL 20 MEQ 20 MEQ/1,000 ML BAG IV SCH (20:00)
[2016-06-25 23:22] LABS: BUN/Creatinine Ratio 16.25; Calcium 9.8 mg/dL (8.4-10.2); Chloride 118.7 mmol/L (98-107); Potassium 4.2 mmol/L (3.6-5.0)
[2016-06-26] MEDS: D5W/0.45% NACL/KCL 20 MEQ 20 MEQ/1,000 ML BAG IV SCH (04:00)
[2016-06-26] MEDS: NovoLIN R 100 UNITS in NACL 0.9% 99 ML IV SCH ×3 (05:45→23:15)
[2016-06-26 07:53] LABS: Basophils % (Auto) 0.2 % (0.0-1.8); Hematocrit 48.8 % (35.5-45.6); Hemoglobin 15.8 gm/dl (11.8-15.2); Mean Corpuscular HGB Conc 32 % (32-34); Mean Corpuscular Hemoglobin 28 pg (28-32); Mean Corpuscular Volume 87 fl (84-94); Platelet Count 153 K/mm3 (140-440); Red Cell Distribution Width 13.8 % (13.2-15.2); White Blood Count 11.1 K/mm3 (4.5-11.0)
--- NOTE | 2016-06-26 07:54 | Ultrasound Report ---
ULTRASOUND RENAL BILATERAL HISTORY: New onset renal failure. TECHNIQUE: transabdominal ultrasound with color Doppler interrogation. FINDINGS: The right kidney measures 10.8 x 4.5 x 4.9cm. Right renal cortex: 1.1cm. The left kidney measures 11.2 x 7.2 x 5.1cm. Left renal cortex: 1.6cm. Scans of the kidneys show normal renal contours. There is normal central calyceal clustering and good preservation of the cortical thickness. There is no evidence of mass or hydronephrosis. The views of the bladder and the region of the ureters appear normal. IMPRESSION: Unremarkable renal ultrasound.
[2016-06-26 07:56] LABS: BUN/Creatinine Ratio 16.66; Calcium 9.6 mg/dL (8.4-10.2); Potassium 4.7 mmol/L (3.6-5.0)
--- NOTE | 2016-06-26 08:38 | Progress Note ---
Assessment and Plan Impression: * sigrid * metabolic acidosis * nausea/emesis * volume depletion * DKA * hypernatremia * pyuria Plan: * ivf resuscitation, add d5w today * control glucose * strict i/os * ua and urine lytes noted * renal us noted * cr is better today * no emergent indication for rn ent at this time, but is high risk for ATN * avoid nephrotoxins * serial bmp, lytes Subjective Date of service: 06/26/16 Principal diagnosis: sigrid, dka Interval history: resting in bed today Objective - Exam Narrative Exam: General: Lethargic diminished mental status Head exam: Atraumatic, normocephalic Eyes exam: Normal appearance ENT: Dry mucous membrane Neck exam: Normal inspection, full range of motion, no meningismus nontender Respiratory exam: Mild tachypnea Cardiovascular: Normal rate and rhythm, normal heart sounds Abdomen: Soft, nondistended, and nontender, with normal bowel sounds, no rebound, or guarding Extremity: Full range of motion normal inspection no deformity Back: Normal Inspection, full range of motion, no tenderness Neurologic: Lethargic but open eyes to voice and follows commands. Flow to respond to questions. Equal hand brand advocate and foot dorsiflexion. Generalized weakness Skin: Warm, dry, intact - Vital Signs Vital signs: Vital Signs - 12hr 06/25/16 06/25/16 06/25/16 21:00 22:00 22:14 Temperature Pulse Rate 126 H 114 H 121 H Pulse Rate [ From Monitor] Respiratory 12 23 23 Rate Blood Pressure 115/58 105/66 105/66 O2 Sat by Pulse 97 99 Oximetry 06/25/16 06/26/16 06/26/16 23:00 00:00 01:00 Temperature 98.4 F Pulse Rate 120 H 117 H 114 H Pulse Rate [ 117 H From Monitor] Respiratory 23 20 25 H Rate Blood Pressure 114/66 112/67 104/62 O2 Sat by Pulse 100 99 99 Oximetry 06/26/16 06/26/16 06/26/16 02:00 03:00 04:00 Temperature 97.7 F Pulse Rate 108 H 116 H 112 H Pulse Rate [ 114 H From Monitor] Respiratory 17 19 19 Rate Blood Pressure 98/61 119/68 119/68 O2 Sat by Pulse 98 98 98 Oximetry 06/26/16 06/26/16 06/26/16 05:00 06:00 07:00 Temperature Pulse Rate 115 H 114 H 113 H Pulse Rate [ From Monitor] Respiratory 12 13 21 Rate Blood Pressure 119/68 122/86 130/87 O2 Sat by Pulse 99 98 Oximetry 06/26/16 08:00 Temperature Pulse Rate 103 H Pulse Rate [ 107 H From Monitor] Respiratory 19 Rate Blood Pressure 135/87 O2 Sat by Pulse 97 Oximetry - Lab 06/26/16 07:14 06/26/16 07:14 Most recent lab results Calcium 9.6 mg/dL (8.4-10.2) 06/26/16 07:14 Phosphorus 1.9 mg/dL (2.5-4.5) L D 06/25/16 10:01 Magnesium 3.3 mg/dL (1.7-2.3) H 06/25/16 10:01 Urine Creatinine 38.3 mg/dL (0.1-20.0) H 06/25/16 Unknown Urine Sodium 13 mEq/L 06/25/16 Unknown Urine Total Protein 18 mg/dL (5-11.8) H 06/25/16 Unknown
[2016-06-26 09:23] LABS: BUN/Creatinine Ratio 17.22; Calcium 9.6 mg/dL (8.4-10.2); Chloride 126.2 mmol/L (98-107); Potassium 4.5 mmol/L (3.6-5.0)
[2016-06-26] MEDS: LOVENOX SUB-Q SCH (09:35)
[2016-06-26] MEDS: D5W 1,000 ML IV SCH ×2 (09:53→18:35)
--- NOTE | 2016-06-26 10:39 | Consultation ---
History of Present Illness - Reason for Consult Consult date: 06/26/16 DKA Requesting physician: ALBERT VALERO - History of Present Illness 31 y/o male with known Insulin dependent diabetes, admitted with DKA. Per chart , diagnosed with diabetes after being admitted to [facility] about 1 month ago. Patient did not follow up with [facility] for medication adjustment. Here, had elevated anion gap, metabolic encephalopathy and acute renal failure ( presumptive) as patient had never been here before. Remainder is negative. Past History Past Medical History: diabetes Social history: lives with family Family history: diabetes Medications and Allergies Allergies Allergy/AdvReac Type Severity Reaction Status Date / Time Penicillins Allergy Unknown Verified 06/25/16 07:10 Home Medications Medication Instructions Recorded Confirmed Last Taken Type Insulin Glargine [Lantus] 30 units SQ QHS 06/25/16 06/25/16 Unknown History Insulin Lispro [HumaLOG VIAL] 15 units SQ AC 06/25/16 06/25/16 Unknown History Active Meds: Active Medications Acetaminophen (Tylenol) 650 mg PO Q4H PRN PRN Reason: Pain MILD(1-3)/Fever >100.5/ABDI Bisacodyl (Dulcolax) 10 mg PA QDAY PRN PRN Reason: Constipation unrelieved by MOM Dextrose (D50w (25gm)) 0 ml IV PRN PRN PRN Reason: Hypoglycemia Enoxaparin Sodium (Lovenox) 30 mg SUB-Q QDAY DIANA Last Admin: 06/26/16 09:35 Dose: 30 mg Insulin Human Regular 100 (units/ Sodium Chloride) 100 mls @ 1 mls/hr IV TITR DIANA; 1 UNITS/HR PRN Reason: Protocol Last Titration: 06/26/16 06:59 Dose: 5 units/hr, 5 mls/hr Dextrose (D5w) 1,000 mls @ 125 mls/hr IV DIRECT DIANA Last Admin: 06/26/16 09:53 Dose: 125 mls/hr Ondansetron HCl (Zofran) 4 mg IV Q8H PRN PRN Reason: N/V unrelieved by Reglan Review of Systems All systems: negative Constitutional: other (wants to eat) Exam - Constitutional Vitals: Temp Pulse Resp BP Pulse Ox 98 F 108 H 11 L 128/69 98 06/26/16 08:00 06/26/16 10:00 06/26/16 09:00 06/26/16 09:00 06/26/16 09:00 General appearance: Present: no acute distress - EENT Eyes: Present: PERRL, EOM intact ENT: hearing intact, clear oral mucosa (dry) - Neck Neck: Present: supple, normal ROM - Respiratory Respiratory effort: normal Respiratory: bilateral: CTA - Cardiovascular Rhythm: regular (sinus tach) - Extremities Extremities: no ischemia - Abdominal General gastrointestinal: Present: soft, other (hyperactive bowel sounds) Male genitourinary: Present: deferred Results - Labs CBC & Chem 7: 06/26/16 07:14 06/26/16 07:14 Labs: Abnormal lab results 06/25/16 06/25/16 06/25/16 Range/Units 10:01 10:01 11:24 WBC (4.5-11.0) K/mm3 RBC (3.65-5.03) M/mm3 Hgb (11.8-15.2) gm/dl Hct (35.5-45.6) % Lymph % (Auto) (13.4-35.0) % [place] % (Auto) (0.0-7.3) % Seg Neutrophils % (40.0-70.0) % Seg Neutrophils # (1.8-7.7) K/mm3 Sodium 132 L D (137-145) mmol/L Chloride (98-107) mmol/L Carbon Dioxide 19 L (22-30) mmol/L BUN 67 H (9-20) mg/dL Creatinine 4.5 H (0.8-1.5) mg/dL Glucose 1453 H* (75-100) mg/dL POC Glucose > 500 H (70-105) Phosphorus 1.9 L D (2.5-4.5) mg/dL Magnesium 3.3 H (1.7-2.3) mg/dL Urine Creatinine (0.1-20.0) mg/dL Urine Total Protein (5-11.8) mg/dL 06/25/16 06/25/16 06/25/16 Range/Units 12:54 14:12 14:35 WBC (4.5-11.0) K/mm3 RBC (3.65-5.03) M/mm3 Hgb (11.8-15.2) gm/dl Hct (35.5-45.6) % Lymph % (Auto) (13.4-35.0) % [place] % (Auto) (0.0-7.3) % Seg Neutrophils % (40.0-70.0) % Seg Neutrophils # (1.8-7.7) K/mm3 Sodium (137-145) mmol/L Chloride (98-107) mmol/L Carbon Dioxide 19 L (22-30) mmol/L BUN 63 H (9-20) mg/dL Creatinine 4.5 H (0.8-1.5) mg/dL Glucose 840 H* (75-100) mg/dL POC Glucose > 500 H > 500 H (70-105) Phosphorus (2.5-4.5) mg/dL Magnesium (1.7-2.3) mg/dL Urine Creatinine (0.1-20.0) mg/dL Urine Total Protein (5-11.8) mg/dL 06/25/16 06/25/16 06/25/16 Range/Units 15:30 16:09 17:03 WBC (4.5-11.0) K/mm3 RBC (3.65-5.03) M/mm3 Hgb (11.8-15.2) gm/dl Hct (35.5-45.6) % Lymph % (Auto) (13.4-35.0) % [place] % (Auto) (0.0-7.3) % Seg Neutrophils % (40.0-70.0) % Seg Neutrophils # (1.8-7.7) K/mm3 Sodium 149 H (137-145) mmol/L Chloride 107.4 H (98-107) mmol/L Carbon Dioxide (22-30) mmol/L BUN 63 H (9-20) mg/dL Creatinine 4.7 H (0.8-1.5) mg/dL Glucose 710 H* (75-100) mg/dL POC Glucose 491 H 422 H (70-105) Phosphorus (2.5-4.5) mg/dL Magnesium (1.7-2.3) mg/dL Urine Creatinine (0.1-20.0) mg/dL Urine Total Protein (5-11.8) mg/dL 06/25/16 06/25/16 06/25/16 Range/Units 17:51 19:20 19:29 WBC (4.5-11.0) K/mm3 RBC (3.65-5.03) M/mm3 Hgb (11.8-15.2) gm/dl Hct (35.5-45.6) % Lymph % (Auto) (13.4-35.0) % [place] % (Auto) (0.0-7.3) % Seg Neutrophils % (40.0-70.0) % Seg Neutrophils # (1.8-7.7) K/mm3 Sodium 157 H D (137-145) mmol/L Chloride 115.6 H (98-107) mmol/L Carbon Dioxide (22-30) mmol/L BUN 65 H (9-20) mg/dL Creatinine 4.4 H (0.8-1.5) mg/dL Glucose 260 H (75-100) mg/dL POC Glucose 364 H 195 H (70-105) Phosphorus (2.5-4.5) mg/dL Magnesium (1.7-2.3) mg/dL Urine Creatinine (0.1-20.0) mg/dL Urine Total Protein (5-11.8) mg/dL 06/25/16 06/25/16 06/25/16 Range/Units 20:40 21:45 22:53 WBC (4.5-11.0) K/mm3 RBC (3.65-5.03) M/mm3 Hgb (11.8-15.2) gm/dl Hct (35.5-45.6) % Lymph % (Auto) (13.4-35.0) % [place] % (Auto) (0.0-7.3) % Seg Neutrophils % (40.0-70.0) % Seg Neutrophils # (1.8-7.7) K/mm3 Sodium 159 H (137-145) mmol/L Chloride 118.7 H (98-107) mmol/L Carbon Dioxide (22-30) mmol/L BUN 65 H (9-20) mg/dL Creatinine 4.0 H (0.8-1.5) mg/dL Glucose 193 H (75-100) mg/dL POC Glucose 176 H 175 H (70-105) Phosphorus (2.5-4.5) mg/dL Magnesium (1.7-2.3) mg/dL Urine Creatinine (0.1-20.0) mg/dL Urine Total Protein (5-11.8) mg/dL 06/25/16 06/25/16 06/26/16 Range/Units 22:59 Unknown 00:01 WBC (4.5-11.0) K/mm3 RBC (3.65-5.03) M/mm3 Hgb (11.8-15.2) gm/dl Hct (35.5-45.6) % Lymph % (Auto) (13.4-35.0) % [place] % (Auto) (0.0-7.3) % Seg Neutrophils % (40.0-70.0) % Seg Neutrophils # (1.8-7.7) K/mm3 Sodium (137-145) mmol/L Chloride (98-107) mmol/L Carbon Dioxide (22-30) mmol/L BUN (9-20) mg/dL Creatinine (0.8-1.5) mg/dL Glucose (75-100) mg/dL POC Glucose 160 H 163 H (70-105) Phosphorus (2.5-4.5) mg/dL Magnesium (1.7-2.3) mg/dL Urine Creatinine 38.3 H (0.1-20.0) mg/dL Urine Total Protein 18 H (5-11.8) mg/dL 06/26/16 06/26/16 06/26/16 Range/Units 01:16 07:14 07:14 WBC (4.5-11.0) K/mm3 RBC (3.65-5.03) M/mm3 Hgb (11.8-15.2) gm/dl Hct (35.5-45.6) % Lymph % (Auto) (13.4-35.0) % [place] % (Auto) (0.0-7.3) % Seg Neutrophils % (40.0-70.0) % Seg Neutrophils # (1.8-7.7) K/mm3 Sodium 158 H 163 H* (137-145) mmol/L Chloride 124.0 H 126.2 H (98-107) mmol/L Carbon Dioxide 21 L 14 L D (22-30) mmol/L BUN 60 H 62 H (9-20) mg/dL Creatinine 3.6 H 3.6 H (0.8-1.5) mg/dL Glucose 195 H 191 H (75-100) mg/dL POC Glucose 170 H (70-105) Phosphorus (2.5-4.5) mg/dL Magnesium (1.7-2.3) mg/dL Urine Creatinine (0.1-20.0) mg/dL Urine Total Protein (5-11.8) mg/dL 06/26/16 Range/Units 07:14 WBC 11.1 H (4.5-11.0) K/mm3 RBC 5.60 H (3.65-5.03) M/mm3 Hgb 15.8 H (11.8-15.2) gm/dl Hct 48.8 H D (35.5-45.6) % Lymph % (Auto) 12.9 L (13.4-35.0) % [place] % (Auto) 7.4 H (0.0-7.3) % Seg Neutrophils % 79.5 H (40.0-70.0) % Seg Neutrophils # 8.8 H (1.8-7.7) K/mm3 Sodium (137-145) mmol/L Chloride (98-107) mmol/L Carbon Dioxide (22-30) mmol/L BUN (9-20) mg/dL Creatinine (0.8-1.5) mg/dL Glucose (75-100) mg/dL POC Glucose (70-105) Phosphorus (2.5-4.5) mg/dL Magnesium (1.7-2.3) mg/dL Urine Creatinine (0.1-20.0) mg/dL Urine Total Protein (5-11.8) mg/dL Assessment and Plan 31 y/o male with DKA and acute renal failure. 1. Agree with changing fluids to D5 given that sugar is below 250 2. Follow up serial chemistries. Should be done every 6 hours 3. Once anion gap is closed, less than 12-14, will given long acting insulin and stop drip 4. keep NPO until gap closes and long acting insulin is administered. Then can place on CC diet 5. Continue ICU care for now. CCT 31 minutes.
[2016-06-26 14:01] LABS: BUN/Creatinine Ratio 21.42; Calcium 9.3 mg/dL (8.4-10.2); Chloride 123.1 mmol/L (98-107); Potassium 4.1 mmol/L (3.6-5.0)
--- NOTE | 2016-06-26 16:53 | Progress Note ---
Assessment and Plan Assessment and plan: 1. DKA. Patient will be placed on the DKA pathway. Continue IV fluids and insulin drip counseled about improving diet and improving compliance 2. Medical noncompliance. Patient has been counseled. 3. Acute kidney injury/ Vasomotor nephropathy . Continue aggressive IV fluid hydration. improving. 4. Hypernatremia; due to free water deficit/dehydration, continue d5W drip Critical care time: 32 minutes History Interval history: He continues to complain of thirst, feeling tired. He states that he underwent diabetic education class plans to go when he is discharged Hospitalist Physical - Physical exam Narrative exam: General: Patient appears well in no distress HEENT: MMM, EOMI cardiac: S1-S2 heard lungs: clear to auscultation, abdomen: soft, nontender, nondistended bowel sounds positive extremities: no edema clubbing or cyanosis Skin: no rash or lesion Neuro: no focal deficit Psych: appropriate behavior and mood, cognition intact - Constitutional Vitals: Temp Pulse Resp BP Pulse Ox 97.8 F 119 H 15 152/99 97 06/26/16 12:00 06/26/16 16:00 06/26/16 16:00 06/26/16 16:00 06/26/16 16:00 General appearance: Present: no acute distress Results - Labs CBC & Chem 7: 06/26/16 07:14 06/27/16 13:53 Labs: Laboratory Last Values WBC 11.1 K/mm3 (4.5-11.0) H 06/26/16 07:14 RBC 5.60 M/mm3 (3.65-5.03) H 06/26/16 07:14 Hgb 15.8 gm/dl (11.8-15.2) H 06/26/16 07:14 Hct 48.8 % (35.5-45.6) H D 06/26/16 07:14 MCV 87 fl (84-94) D 06/26/16 07:14 MCH 28 pg (28-32) 06/26/16 07:14 MCHC 32 % (32-34) 06/26/16 07:14 RDW 13.8 % (13.2-15.2) 06/26/16 07:14 Plt Count 153 K/mm3 (140-440) 06/26/16 07:14 Lymph % (Auto) 12.9 % (13.4-35.0) L 06/26/16 07:14 [place] % (Auto) 7.4 % (0.0-7.3) H 06/26/16 07:14 Eos % (Auto) 0.0 % (0.0-4.3) 06/26/16 07:14 Baso % (Auto) 0.2 % (0.0-1.8) 06/26/16 07:14 Lymph # 1.4 K/mm3 (1.2-5.4) 06/26/16 07:14 [place] # 0.8 K/mm3 (0.0-0.8) 06/26/16 07:14 Eos # 0.0 K/mm3 (0.0-0.4) 06/26/16 07:14 Baso # 0.0 K/mm3 (0.0-0.1) 06/26/16 07:14 Seg Neutrophils % 79.5 % (40.0-70.0) H 06/26/16 07:14 Seg Neutrophils # 8.8 K/mm3 (1.8-7.7) H 06/26/16 07:14 VBG pH 7.173 (7.320-7.420) L* 06/25/16 07:16 Sodium 161 mmol/L (137-145) H* 06/26/16 13:21 Potassium 4.1 mmol/L (3.6-5.0) 06/26/16 13:21 Chloride 123.1 mmol/L (98-107) H 06/26/16 13:21 Carbon Dioxide 19 mmol/L (22-30) L 06/26/16 13:21 Anion Gap 23 mmol/L 06/26/16 13:21 BUN 60 mg/dL (9-20) H 06/26/16 13:21 Creatinine 2.8 mg/dL (0.8-1.5) H 06/26/16 13:21 Estimated GFR 33 ml/min 06/26/16 13:21 BUN/Creatinine Ratio 21.42 % 06/26/16 13:21 Glucose 91 mg/dL (75-100) 06/26/16 13:21 POC Glucose 161 (70-105) H 06/26/16 14:26 Calcium 9.3 mg/dL (8.4-10.2) 06/26/16 13:21 Phosphorus 1.9 mg/dL (2.5-4.5) L D 06/25/16 10:01 Magnesium 3.3 mg/dL (1.7-2.3) H 06/25/16 10:01 Total Bilirubin 0.3 mg/dL (0.1-1.2) 06/25/16 07:16 Direct Bilirubin 0.3 mg/dL (0-0.2) H 06/25/16 07:16 Indirect Bilirubin 0.0 mg/dL 06/25/16 07:16 AST 9 units/L (5-40) 06/25/16 07:16 ALT 15 units/L (7-56) 06/25/16 07:16 Alkaline Phosphatase 135 units/L (35-129) H 06/25/16 07:16 Total Protein 8.1 g/dL (6.3-8.2) 06/25/16 07:16 Albumin 4.3 g/dL (3.9-5) 06/25/16 07:16 Albumin/Globulin Ratio 1.1 % 06/25/16 07:16 Lipase 73 units/L (13-60) H 06/25/16 07:16 Urine Color Straw (Yellow) 06/25/16 Unknown Urine Turbidity Clear (Clear) 06/25/16 Unknown Urine pH 5.0 (5.0-7.0) 06/25/16 Unknown Ur Specific [place] 1.022 (1.003-1.030) 06/25/16 Unknown Urine Protein <15 mg/dl mg/dL (Negative) 06/25/16 Unknown Urine Glucose (UA) >=500 mg/dL (Negative) 06/25/16 Unknown Urine Ketones Neg mg/dL (Negative) 06/25/16 Unknown Urine Blood Mod (Negative) 06/25/16 Unknown Urine Nitrite Neg (Negative) 06/25/16 Unknown Urine Bilirubin Neg (Negative) 06/25/16 Unknown Urine Urobilinogen < 2.0 mg/dL (<2.0) 06/25/16 Unknown Ur Leukocyte Esterase Neg (Negative) 06/25/16 Unknown Urine WBC (Auto) 9.0 /HPF (0.0-6.0) H 06/25/16 Unknown Urine RBC (Auto) 4.0 /HPF (0.0-6.0) 06/25/16 Unknown Urine Bacteria (Auto) 1+ /HPF (Negative) 06/25/16 Unknown Urine Mucus Few /HPF 06/25/16 Unknown Urine Creatinine 38.3 mg/dL (0.1-20.0) H 06/25/16 Unknown Protein/Creatinin Ratio 0.47 06/25/16 Unknown Urine Sodium 13 mEq/L 06/25/16 Unknown Urine Total Protein 18 mg/dL (5-11.8) H 06/25/16 Unknown - Imaging and Cardiology US - abdomen: image reviewed (unremarkable kidneys)
[2016-06-26 21:00] LABS: BUN/Creatinine Ratio 20.35; Chloride 116.7 mmol/L (98-107); Potassium 3.8 mmol/L (3.6-5.0)
[2016-06-27] MEDS: NovoLIN R 100 UNITS in NACL 0.9% 99 ML IV SCH ×4 (00:09→02:53)
[2016-06-27] MEDS ORDERED: ALUM-MAG HYDROX-SIMETH 200-200-20MG/5ML PO PRN (00:41)
[2016-06-27 02:06] LABS: BUN/Creatinine Ratio 18.92; Calcium 9.4 mg/dL (8.4-10.2); Chloride 118.8 mmol/L (98-107); Potassium 3.8 mmol/L (3.6-5.0)
[2016-06-27] MEDS: D5W 1,000 ML IV SCH (02:10)
[2016-06-27 04:36] LABS: Creatine Kinase MB 2.7 ng/mL (0.0-4.0)
[2016-06-27 06:02] LABS: Creatine Kinase MB 2.6 ng/mL (0.0-4.0)
[2016-06-27 06:05] LABS: BUN/Creatinine Ratio 19.6; Calcium 8.9 mg/dL (8.4-10.2); Chloride 113.1 mmol/L (98-107); Potassium 3.6 mmol/L (3.6-5.0)
--- NOTE | 2016-06-27 08:38 | Progress Note ---
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, but is high risk for ATN * avoid nephrotoxins * serial bmp, lytes Subjective Date of service: 06/27/16 Principal diagnosis: sigrid, dka Interval history: resting in bed today Objective - Exam Narrative Exam: General: awake, allert Head exam: Atraumatic, normocephalic Eyes exam: Normal appearance ENT: Dry mucous membrane Neck exam: Normal inspection, full range of motion, no meningismus nontender Respiratory exam: Mild tachypnea Cardiovascular: Normal rate and rhythm, normal heart sounds Abdomen: Soft, nondistended, and nontender, with normal bowel sounds, no rebound, or guarding Extremity: Full range of motion normal inspection no deformity Back: Normal Inspection, full range of motion, no tenderness Neurologic: wdwn Skin: Warm, dry, intact - Vital Signs Vital signs: Vital Signs - 12hr 06/26/16 06/26/16 06/26/16 21:00 22:00 23:00 Temperature Pulse Rate 112 H 54 L 98 H Pulse Rate [ From Monitor] Respiratory 14 23 22 Rate Blood Pressure 153/88 153/88 153/88 O2 Sat by Pulse Oximetry 06/27/16 06/27/16 06/27/16 00:00 01:00 02:00 Temperature 98.1 F Pulse Rate 109 H 107 H 98 H Pulse Rate [ 113 H From Monitor] Respiratory 13 15 21 Rate Blood Pressure 153/88 139/100 147/101 O2 Sat by Pulse 97 99 97 Oximetry 06/27/16 06/27/16 06/27/16 03:00 04:00 05:32 Temperature 98.0 F Pulse Rate 100 H 107 H 101 H Pulse Rate [ 109 H From Monitor] Respiratory 21 16 12 Rate Blood Pressure 157/103 157/103 157/103 O2 Sat by Pulse 98 98 Oximetry - Lab 06/26/16 07:14 06/27/16 05:19 Most recent lab results Calcium 8.9 mg/dL (8.4-10.2) 06/27/16 05:19 Phosphorus 1.9 mg/dL (2.5-4.5) L D 06/25/16 10:01 Magnesium 3.3 mg/dL (1.7-2.3) H 06/25/16 10:01 Urine Creatinine 38.3 mg/dL (0.1-20.0) H 06/25/16 Unknown Urine Sodium 13 mEq/L 06/25/16 Unknown Urine Total Protein 18 mg/dL (5-11.8) H 06/25/16 Unknown
[2016-06-27] MEDS: LOVENOX SUB-Q SCH (09:24)
[2016-06-27] MEDS ORDERED: KCL IV SCH (09:30)
[2016-06-27] MEDS ORDERED: D5W IV SCH (09:30)
[2016-06-27] MEDS ORDERED: D50W (25GM) IV PRN (11:01)
--- NOTE | 2016-06-27 11:52 | Progress Note ---
Assessment and Plan 31 y/o male with DKA and acute renal failure. 1. Needs more free water, should encourage this in oral intake ordered by IMS 2. Needs long acting insulin 3. Ok with transfer out of unit. Will sign off. Subjective Date of service: 06/27/16 Principal diagnosis: sigrid, dka Interval history: Patient fed by primary yesterday. Anion Gap is elevated but most likely secondary to his Na. Objective - Constitutional Vitals: Vital Signs - 12hr 06/27/16 06/27/16 06/27/16 00:00 01:00 02:00 Temperature 98.1 F Pulse Rate 109 H 107 H 98 H Pulse Rate [ 113 H From Monitor] Respiratory 13 15 21 Rate Blood Pressure 153/88 139/100 147/101 O2 Sat by Pulse 97 99 97 Oximetry 06/27/16 06/27/16 06/27/16 03:00 04:00 05:32 Temperature 98.0 F Pulse Rate 100 H 107 H 101 H Pulse Rate [ 109 H From Monitor] Respiratory 21 16 12 Rate Blood Pressure 157/103 157/103 157/103 O2 Sat by Pulse 98 98 Oximetry 06/27/16 06/27/16 06/27/16 06:00 07:00 08:00 Temperature 97.3 F L Pulse Rate 105 H 92 H 113 H Pulse Rate [ From Monitor] Respiratory 14 21 19 Rate Blood Pressure 157/103 157/103 140/78 O2 Sat by Pulse 99 Oximetry 06/27/16 06/27/16 09:00 10:00 Temperature Pulse Rate 99 H 107 H Pulse Rate [ From Monitor] Respiratory 15 11 L Rate Blood Pressure 150/101 O2 Sat by Pulse 99 Oximetry - Labs CBC & Chem 7: 06/26/16 07:14 06/27/16 05:19 Labs: Abnormal lab results 06/26/16 06/26/16 06/26/16 Range/Units 02:41 03:45 05:42 Sodium (137-145) mmol/L Chloride (98-107) mmol/L Carbon Dioxide (22-30) mmol/L BUN (9-20) mg/dL Creatinine (0.8-1.5) mg/dL Glucose (75-100) mg/dL POC Glucose 160 H 165 H 179 H (70-105) Total Creatine Kinase (55-170) units/L 06/26/16 06/26/16 06/26/16 Range/Units 06:55 07:35 09:25 Sodium (137-145) mmol/L Chloride (98-107) mmol/L Carbon Dioxide (22-30) mmol/L BUN (9-20) mg/dL Creatinine (0.8-1.5) mg/dL Glucose (75-100) mg/dL POC Glucose 176 H 191 H 179 H (70-105) Total Creatine Kinase (55-170) units/L 06/26/16 06/26/16 06/26/16 Range/Units 09:59 13:21 14:26 Sodium 161 H* (137-145) mmol/L Chloride 123.1 H (98-107) mmol/L Carbon Dioxide 19 L (22-30) mmol/L BUN 60 H (9-20) mg/dL Creatinine 2.8 H (0.8-1.5) mg/dL Glucose (75-100) mg/dL POC Glucose 182 H 161 H (70-105) Total Creatine Kinase (55-170) units/L 06/26/16 06/26/16 06/26/16 Range/Units 15:24 15:52 16:57 Sodium (137-145) mmol/L Chloride (98-107) mmol/L Carbon Dioxide (22-30) mmol/L BUN (9-20) mg/dL Creatinine (0.8-1.5) mg/dL Glucose (75-100) mg/dL POC Glucose 189 H 214 H 249 H (70-105) Total Creatine Kinase (55-170) units/L 06/26/16 06/26/16 06/26/16 Range/Units 17:45 18:07 18:54 Sodium (137-145) mmol/L Chloride (98-107) mmol/L Carbon Dioxide (22-30) mmol/L BUN (9-20) mg/dL Creatinine (0.8-1.5) mg/dL Glucose (75-100) mg/dL POC Glucose 243 H 200 H 211 H (70-105) Total Creatine Kinase (55-170) units/L 06/26/16 06/26/16 06/26/16 Range/Units 19:52 20:18 21:03 Sodium 159 H (137-145) mmol/L Chloride 116.7 H (98-107) mmol/L Carbon Dioxide 21 L (22-30) mmol/L BUN 57 H (9-20) mg/dL Creatinine 2.8 H (0.8-1.5) mg/dL Glucose 248 H (75-100) mg/dL POC Glucose 219 H 214 H (70-105) Total Creatine Kinase (55-170) units/L 06/26/16 06/26/16 06/27/16 Range/Units 21:59 22:58 00:06 Sodium (137-145) mmol/L Chloride (98-107) mmol/L Carbon Dioxide (22-30) mmol/L BUN (9-20) mg/dL Creatinine (0.8-1.5) mg/dL Glucose (75-100) mg/dL POC Glucose 204 H 209 H 171 H (70-105) Total Creatine Kinase (55-170) units/L 06/27/16 06/27/16 06/27/16 Range/Units 00:21 01:07 03:21 Sodium 162 H* (137-145) mmol/L Chloride 118.8 H (98-107) mmol/L Carbon Dioxide (22-30) mmol/L BUN 53 H (9-20) mg/dL Creatinine 2.8 H (0.8-1.5) mg/dL Glucose 135 H (75-100) mg/dL POC Glucose 140 H 113 H (70-105) Total Creatine Kinase (55-170) units/L 06/27/16 06/27/16 06/27/16 Range/Units 03:49 04:01 05:09 Sodium (137-145) mmol/L Chloride (98-107) mmol/L Carbon Dioxide (22-30) mmol/L BUN (9-20) mg/dL Creatinine (0.8-1.5) mg/dL Glucose (75-100) mg/dL POC Glucose 139 H 163 H (70-105) Total Creatine Kinase 398 H (55-170) units/L 06/27/16 06/27/16 Range/Units 05:19 06:05 Sodium 155 H (137-145) mmol/L Chloride 113.1 H (98-107) mmol/L Carbon Dioxide (22-30) mmol/L BUN 49 H (9-20) mg/dL Creatinine 2.5 H (0.8-1.5) mg/dL Glucose 209 H (75-100) mg/dL POC Glucose 190 H (70-105) Total Creatine Kinase 371 H (55-170) units/L
[2016-06-27] MEDS ORDERED: NOVOLOG SUB-Q SCH (12:00)
[2016-06-27] MEDS ORDERED: LEVEMIR SUB-Q SCH ×3 (13:00→22:00)
[2016-06-27 14:26] LABS: BUN/Creatinine Ratio 17.27; Calcium 8.8 mg/dL (8.4-10.2); Chloride 104.6 mmol/L (98-107); Potassium 3.6 mmol/L (3.6-5.0)
[2016-06-27 14:28] LABS: Creatine Kinase MB 2.4 ng/mL (0.0-4.0)
[2016-06-27 14:30] LABS: Creatine Kinase 296 units/L (55-170)
--- NOTE | 2016-06-27 16:11 | Progress Note ---
Assessment and Plan Assessment and plan: 1. DKA. /Uncontrolled diabetes Patient is now out of diabetic ketoacidosis, we'll transition him to subcutaneous insulin once 2. Medical noncompliance. Patient has been counseled. 3. Acute kidney injury/ Vasomotor nephropathy . Continue aggressive IV fluid hydration. improving. 4. Hypernatremia; due to free water deficit/dehydration, continue d5W drip 5. Hypokalemia Continue to replete IV Critical care time: 32 minutes If patient does well with subcutaneous insulin, would transfer him to the medical floor later today History Interval history: He continues to complain of thirst, feeling tired. He states that he underwent diabetic education class plans to go when he is discharged Hospitalist Physical - Physical exam Narrative exam: General: Patient appears well in no distress HEENT: MMM, EOMI cardiac: S1-S2 heard lungs: clear to auscultation, abdomen: soft, nontender, nondistended bowel sounds positive extremities: no edema clubbing or cyanosis Skin: no rash or lesion Neuro: no focal deficit Psych: appropriate behavior and mood, cognition intact - Constitutional Vitals: Temp Pulse Resp BP Pulse Ox 98.6 F 99 H 22 143/91 98 06/27/16 15:39 06/27/16 15:39 06/27/16 15:39 06/27/16 15:39 06/27/16 15:39 General appearance: Present: no acute distress Results - Labs CBC & Chem 7: 06/26/16 07:14 06/27/16 13:53 Labs: Laboratory Last Values WBC 11.1 K/mm3 (4.5-11.0) H 06/26/16 07:14 RBC 5.60 M/mm3 (3.65-5.03) H 06/26/16 07:14 Hgb 15.8 gm/dl (11.8-15.2) H 06/26/16 07:14 Hct 48.8 % (35.5-45.6) H D 06/26/16 07:14 MCV 87 fl (84-94) D 06/26/16 07:14 MCH 28 pg (28-32) 06/26/16 07:14 MCHC 32 % (32-34) 06/26/16 07:14 RDW 13.8 % (13.2-15.2) 06/26/16 07:14 Plt Count 153 K/mm3 (140-440) 06/26/16 07:14 Lymph % (Auto) 12.9 % (13.4-35.0) L 06/26/16 07:14 Mellette % (Auto) 7.4 % (0.0-7.3) H 06/26/16 07:14 Eos % (Auto) 0.0 % (0.0-4.3) 06/26/16 07:14 Baso % (Auto) 0.2 % (0.0-1.8) 06/26/16 07:14 Lymph # 1.4 K/mm3 (1.2-5.4) 06/26/16 07:14 Mellette # 0.8 K/mm3 (0.0-0.8) 06/26/16 07:14 Eos # 0.0 K/mm3 (0.0-0.4) 06/26/16 07:14 Baso # 0.0 K/mm3 (0.0-0.1) 06/26/16 07:14 Seg Neutrophils % 79.5 % (40.0-70.0) H 06/26/16 07:14 Seg Neutrophils # 8.8 K/mm3 (1.8-7.7) H 06/26/16 07:14 VBG pH 7.173 (7.320-7.420) L* 06/25/16 07:16 Sodium 144 mmol/L (137-145) D 06/27/16 13:53 Potassium 3.6 mmol/L (3.6-5.0) 06/27/16 13:53 Chloride 104.6 mmol/L (98-107) 06/27/16 13:53 Carbon Dioxide 21 mmol/L (22-30) L 06/27/16 13:53 Anion Gap 22 mmol/L 06/27/16 13:53 BUN 38 mg/dL (9-20) H 06/27/16 13:53 Creatinine 2.2 mg/dL (0.8-1.5) H 06/27/16 13:53 Estimated GFR 43 ml/min 06/27/16 13:53 BUN/Creatinine Ratio 17.27 % 06/27/16 13:53 Glucose 364 mg/dL (75-100) H 06/27/16 13:53 POC Glucose 219 (70-105) H 06/27/16 07:28 Calcium 8.8 mg/dL (8.4-10.2) 06/27/16 13:53 Phosphorus 1.9 mg/dL (2.5-4.5) L D 06/25/16 10:01 Magnesium 3.3 mg/dL (1.7-2.3) H 06/25/16 10:01 Total Bilirubin 0.3 mg/dL (0.1-1.2) 06/25/16 07:16 Direct Bilirubin 0.3 mg/dL (0-0.2) H 06/25/16 07:16 Indirect Bilirubin 0.0 mg/dL 06/25/16 07:16 AST 9 units/L (5-40) 06/25/16 07:16 ALT 15 units/L (7-56) 06/25/16 07:16 Alkaline Phosphatase 135 units/L (35-129) H 06/25/16 07:16 Total Creatine Kinase 296 units/L (55-170) H 06/27/16 13:53 CK-MB (CK-2) 2.4 ng/mL (0.0-4.0) 06/27/16 13:53 CK-MB (CK-2) Rel Index 0.8 (0-4) 06/27/16 13:53 Troponin T < 0.010 ng/mL (0.00-0.029) 06/27/16 13:53 Total Protein 8.1 g/dL (6.3-8.2) 06/25/16 07:16 Albumin 4.3 g/dL (3.9-5) 06/25/16 07:16 Albumin/Globulin Ratio 1.1 % 06/25/16 07:16 Lipase 73 units/L (13-60) H 06/25/16 07:16 Urine Color Straw (Yellow) 06/25/16 Unknown Urine Turbidity Clear (Clear) 06/25/16 Unknown Urine pH 5.0 (5.0-7.0) 06/25/16 Unknown Ur Specific Clutier 1.022 (1.003-1.030) 06/25/16 Unknown Urine Protein <15 mg/dl mg/dL (Negative) 06/25/16 Unknown Urine Glucose (UA) >=500 mg/dL (Negative) 06/25/16 Unknown Urine Ketones Neg mg/dL (Negative) 06/25/16 Unknown Urine Blood Mod (Negative) 06/25/16 Unknown Urine Nitrite Neg (Negative) 06/25/16 Unknown Urine Bilirubin Neg (Negative) 06/25/16 Unknown Urine Urobilinogen < 2.0 mg/dL (<2.0) 06/25/16 Unknown Ur Leukocyte Esterase Neg (Negative) 06/25/16 Unknown Urine WBC (Auto) 9.0 /HPF (0.0-6.0) H 06/25/16 Unknown Urine RBC (Auto) 4.0 /HPF (0.0-6.0) 06/25/16 Unknown Urine Bacteria (Auto) 1+ /HPF (Negative) 06/25/16 Unknown Urine Mucus Few /HPF 06/25/16 Unknown Urine Creatinine 38.3 mg/dL (0.1-20.0) H 06/25/16 Unknown Protein/Creatinin Ratio 0.47 06/25/16 Unknown Urine Sodium 13 mEq/L 06/25/16 Unknown Urine Total Protein 18 mg/dL (5-11.8) H 06/25/16 Unknown
[2016-06-27] MEDS ORDERED: K-DUR PO ONE (17:32)
[2016-06-27] MEDS ORDERED: NACL 0.45% 1000 ML 1,000 ML IV SCH (18:00)
[2016-06-27] MEDS: NOVOLOG SUB-Q SCH ×5 (18:43→21:52)
--- NOTE | 2016-06-28 08:44 | Progress Note ---
Assessment and Plan Impression: * Acute kidney injury secondary to prerenal azotemia * DKA * Metabolic acidosis secondary to DKA * Nausea/Emesis * Volume depletion * Hypernatremia - improved * Pyuria * Hypokalemia Plan: * AM labs are pending * Continue IVF for fluid resuscitation * Replete lytes prn * Tight glycemic control * Strict I/O * Avoid potential nephrotoxins Subjective Date of service: 06/28/16 Principal diagnosis: sigrid, dka Interval history: Patient seen w/o complaint Objective - Vital Signs Vital signs: Vital Signs - 12hr 06/27/16 06/28/16 23:20 04:00 Temperature 98.3 F Pulse Rate [ 119 H 107 H Left Radial] Respiratory 20 Rate Blood Pressure 164/109 136/86 O2 Sat by Pulse 98 Oximetry - General Appearance General appearance: well-developed, well-nourished EENT: ATNC Respiratory: Present: Clear to Ascultation Cardiology: regular, S1S2 Gastrointestinal: normal, no tenderness, no distended Integumentary: no rash Neurologic: alert and oriented x3 Psychiatric: mood/affect appropriate, cooperative - Lab 06/26/16 07:14 06/28/16 10:55 Most recent lab results Calcium 8.8 mg/dL (8.4-10.2) 06/27/16 13:53 Phosphorus 1.9 mg/dL (2.5-4.5) L D 06/25/16 10:01 Magnesium 3.3 mg/dL (1.7-2.3) H 06/25/16 10:01 Urine Creatinine 38.3 mg/dL (0.1-20.0) H 06/25/16 Unknown Urine Sodium 13 mEq/L 06/25/16 Unknown Urine Total Protein 18 mg/dL (5-11.8) H 06/25/16 Unknown
[2016-06-28] MEDS ORDERED: LOVENOX SUB-Q SCH (10:00)
[2016-06-28] MEDS: NOVOLOG SUB-Q SCH ×4 (10:33→14:17)
[2016-06-28 11:52] LABS: BUN/Creatinine Ratio 17.5; Calcium 8.9 mg/dL (8.4-10.2); Chloride 103.1 mmol/L (98-107); Potassium 4.5 mmol/L (3.6-5.0)
[2016-06-28 12:03] VITALS: BP 155/95
--- NOTE | 2016-06-28 13:29 | Discharge Summary ---
Providers - Providers Date of Admission: 06/25/16 08:24 Attending physician: FABI CARPENTER MD 06/25/16 08:27 Consult to Physician [CONS] Urgent Consulting Provider: VINOD LUCAS Reason For Exam: acute renal failure, dka Notified:: y 06/27/16 17:24 Speech Therapy Evaluation and Treat [CONS] Routine Reason For Exam: dysphagia Primary care physician: APPLIED TECHNOLOGIST Hospitalization Condition: Stable Hospital course: 31-year-old man who has a history of uncontrolled diabetes was very noncompliant with insulin, presented with nausea, polyuria polydipsia found to have DKA. He was admitted to the ICU treated with IV fluids for severe dehydration and insulin drip. Patient improved and was weaned off insulin drip and transitioned to subcutaneous insulins, he was counseled about better compliance, he also stated that he schedule to take a diabetic education class by his primary care doctor. For hypernatremia he was given free water, and he was found to be hypokalemic and that was repleted. He was found to be hypertensive on site and appropriate blood pressure medications Discharge diagnoses 1 DKA 2 uncontrolled diabetes 3. Acute on chronic kidney disease due to vasomotor nephropathy 4. Hypertension Disposition: DISCHARGED TO HOME OR SELFCARE Time spent for discharge: 35 minutes Core Measure Documentation - Palliative Care Palliative Care/ Comfort Measures: Not Applicable - Core Measures Any of the following diagnoses?: none Exam - Constitutional Vitals: Temp Pulse Resp BP Pulse Ox 98.2 F 117 H 16 155/95 100 06/28/16 08:05 06/28/16 08:05 06/28/16 08:05 06/28/16 08:05 06/28/16 08:05 General appearance: Present: no acute distress, well-nourished - EENT Eyes: Present: PERRL ENT: hearing intact, clear oral mucosa - Neck Neck: Present: supple, normal ROM - Respiratory Respiratory effort: normal Respiratory: bilateral: CTA - Cardiovascular Heart Sounds: Present: S1 & S2. Absent: rub, click - Extremities Extremities: pulses symmetrical, No edema Peripheral Pulses: within normal limits - Abdominal General gastrointestinal: Present: soft, non-tender, non-distended, normal bowel sounds Male genitourinary: Present: normal - Integumentary Integumentary: Present: clear, warm, dry - Musculoskeletal Musculoskeletal: gait normal, strength equal bilaterally - Psychiatric Psychiatric: appropriate mood/affect, intact judgment & insight - Neurologic Neurologic: CNII-XII intact, moves all extremities Plan Follow up with: PRIMARY CARE, [Primary Care Provider] - 3-5 Days Prescriptions: Insulin Glargine [Lantus VIAL] 45 units SQ QHS #1 vial Insulin Lispro [HumaLOG VIAL] 15 units SQ AC #1 vial Lisinopril [Zestril TAB] 20 mg PO QDAY #30 tablet
[2016-06-28 15:04] LABS: B-Hydroxybutyrate 0.8 mmol/L (-0.28)
== END 2016-06-28 14:35 | disposition home or self-care (01) | DRG 637 ==
LOC: ED 06:51 → CC1 08:24 → 3A 06-27 15:03
PROVIDERS: ADMIT Hospitalist; ATTEND Internal Medicine
DX: E13.10 Other specified diabetes mellitus with ketoacidosis without coma (principal); N17.0 Acute kidney failure with tubular necrosis; E87.0 Hyperosmolality and hypernatremia; N39.0 Urinary tract infection, site not specified; E87.6 Hypokalemia; E13.65 Other specified diabetes mellitus with hyperglycemia; E13.22 Other specified diabetes mellitus with diabetic chronic kidney disease; I12.9 Hypertensive chronic kidney disease with stage 1 through stage 4 chronic kidney disease, or unspecified chronic kidney disease; N18.9 Chronic kidney disease, unspecified; E86.9 Volume depletion, unspecified; Z79.4 Long term (current) use of insulin; Z88.0 Allergy status to penicillin; Z91.11 Patient's noncompliance with dietary regimen; Z83.3 Family history of diabetes mellitus
CPT/HCPCS: 36415; 76770; 80048; 80074; 81001; 82010; 82550; 82553; 82570; 82805; 82962; 83690; 83735; 84100; 84156; 84300; 84484; 85025; 96361; 96374; 96375; 96376; C9113; J1650; J1815; J1818; J2405; J3480; J7030; J7070

== ENCOUNTER 2017-04-05 19:02 | Inpatient (IN) | payer OTHER ==
[2017-04-05] MEDS ORDERED: NACL 0.9% 1000 ML 1,000 ML ONE (19:36)
[2017-04-05 19:53] LABS: Hematocrit 54.9 % (35.5-45.6); Hemoglobin 17.9 gm/dl (11.8-15.2); Mean Corpuscular HGB Conc 33 % (32-34); Mean Corpuscular Hemoglobin 28 pg (28-32); Mean Corpuscular Volume 86 fl (84-94); Platelet Count 293 K/mm3 (140-440); Red Blood Count 6.38 M/mm3 (3.65-5.03); Red Cell Distribution Width 13.7 % (13.2-15.2); White Blood Count 14.9 K/mm3 (4.5-11.0)
[2017-04-05 20:27] LABS: Basophils % (Manual) 0 % (0.0-1.8); Blastocytes % (Manual) 0 %; Eosinophils % (Manual) 0 % (0.0-4.3); Poikilocytosis 1+
[2017-04-05 20:28] LABS: Diff Status Complete
--- NOTE | 2017-04-05 20:30 | Emergency Department Report ---
- General Chief complaint: Hyperglycemia Stated complaint: DKA Time Seen by Provider: 04/05/17 20:21 Source: patient Mode of arrival: Ambulatory Limitations: No Limitations - History of Present Illness Initial comments: 31 YO MALE DM TYPE II WHO TOOK INSULIN TODAY WITHOUT EATING AND THEN BEGAN HAVING LEG CRAMPS. HE COULD NOT WALK BECAUSE OF THE LEG CRAMPS SO HE DRANK A PEPSI OR COKE AND ATE 2 ORANGE FLAVORED GLUCOSE TABLETS. HE BELIEVES THAT IT WAS TOO MUCH INSULIN ON AN EMPTY STOMACH WHICH CAUSED HIS CRAMPING. HE DENIES SOB,CHEST PAIN OR ANY OTHER SYMPTOMS. -: Sudden, This afternoon Location: LLE, RLE Severity: moderate Severity scale (0 -10): 10 Quality: aching, other (CRAMPING) Consistency: now resolved - Related Data Previous Rx's Medication Instructions Recorded Last Taken Type Insulin Glargine [Lantus VIAL] 45 units SQ QHS #1 vial 06/28/16 04/05/17 Rx Insulin Lispro [HumaLOG VIAL] 15 units SQ AC #1 vial 06/28/16 04/05/17 Rx Lisinopril [Zestril TAB] 20 mg PO QDAY #30 tablet 06/28/16 04/05/17 Rx Allergies Allergy/AdvReac Type Severity Reaction Status Date / Time Penicillins Allergy Unknown Verified 06/25/16 07:10 ED Review of Systems ROS: Stated complaint: DKA Other details as noted in HPI Constitutional: denies: chills, fever Eyes: denies: eye pain, eye discharge, vision change ENT: denies: ear pain, throat pain Respiratory: denies: cough, shortness of breath, wheezing Cardiovascular: denies: chest pain, palpitations Endocrine: no symptoms reported Gastrointestinal: denies: abdominal pain, nausea, diarrhea Genitourinary: denies: urgency, dysuria Musculoskeletal: denies: back pain, joint swelling, arthralgia Skin: denies: rash, lesions Neurological: denies: headache, weakness, paresthesias Psychiatric: denies: anxiety, depression Hematological/Lymphatic: denies: easy bleeding, easy bruising ED Past Medical Hx - Past Medical History Previous Medical History?: Yes Hx Hypertension: Yes Hx Congestive Heart Failure: No Hx Diabetes: Yes Hx Asthma: No Hx COPD: No - Surgical History Past Surgical History?: No - Social History Smoking Status: Never Smoker - Medications Home Medications: Home Medications Medication Instructions Recorded Confirmed Last Taken Type Insulin Glargine [Lantus VIAL] 45 units SQ QHS #1 vial 06/28/16 04/05/17 Rx Insulin Lispro [HumaLOG VIAL] 15 units SQ AC #1 vial 06/28/16 04/05/17 04/05/17 Rx Lisinopril [Zestril TAB] 20 mg PO QDAY #30 tablet 06/28/16 04/05/17 04/05/17 Rx ED Physical Exam - General Limitations: No Limitations ED Course Vital Signs 04/05/17 04/05/17 19:27 23:00 Temperature 98.5 F Pulse Rate 145 H 113 H Respiratory 32 H 16 Rate Blood Pressure 139/81 Blood Pressure 125/96 [Left] O2 Sat by Pulse 100 97 Oximetry ED Medical Decision Making - Lab Data Result diagrams: 04/05/17 19:33 04/05/17 19:33 - EKG Data -: EKG Interpreted by Me EKG shows normal: sinus rhythm, axis, intervals Rate: tachycardia - EKG Data Interpretation: nonspecific ST-T wave aura, LVH Critical care attestation.: If time is entered above; I have spent that time in minutes in the direct care of this critically ill patient, excluding procedure time. ED Disposition Clinical Impression: Leg cramps DKA, type 2 Qualifiers: Diabetes mellitus complication detail: without coma Diabetes mellitus [facility] insulin use: unspecified joint terminal attack controller insulin use status Qualified Code(s): E11.10 - Type 2 diabetes mellitus with ketoacidosis without coma Disposition: OP ADMIT IP TO THIS HOSP Is pt being admited?: Yes Does the pt Need Aspirin: No Condition: Serious Instructions: Diabetic Ketoacidosis (ED) Referrals: PRIMARY CARE, [Referring] - 3-5 Days Time of Disposition: 23:59 (DR PRESLEY RIVERA AND CASE REVIEWED AND SHE WILL ADMIT THE PT TO THE HOSPITAL)
[2017-04-05] MEDS ORDERED: NACL 0.9% 1000 ML 1,000 ML IV ONE ×2 (20:31→23:39)
[2017-04-05 21:01] LABS: Albumin 5.6 g/dL (3.9-5); Albumin/Globulin Ratio 1.6 %; Bilirubin,Total 0.5 mg/dL (0.1-1.2); Chloride 85.1 mmol/L (98-107); Potassium 3.7 mmol/L (3.6-5.0)
[2017-04-05 21:14] LABS: Calcium 12.5 mg/dL (8.4-10.2)
[2017-04-05 21:34] LABS: Creatine Kinase MB 1.7 ng/mL (0.0-4.0)
[2017-04-05 21:35] LABS: Creatine Kinase 180 units/L (55-170)
[2017-04-05] MEDS ORDERED: CEPHULAC PO ONE (22:06)
[2017-04-05 22:22] LABS: Urine Drugs of Abuse Note Disclamer
[2017-04-05 22:30] LABS: Bacteria,Urine 1+ /HPF (Negative); Bilirubin,Urine NEG (Negative); Blood,Urine SM (Negative); Ketones,Urine NEG (Negative); Leukocyte Esterase,Urine NEG (Negative); Mucus,Urine FEW /HPF; Nitrite,Urine NEG (Negative); Urobilinogen,Urine < 2.0 mg/dL (<2.0)
[2017-04-05] MEDS ORDERED: D50W (25GM) Syringe IV PRN (23:39)
[2017-04-05] MEDS ORDERED: NovoLIN R 100 UNITS in NACL 0.9% 99 ML IV SCH (23:45)
[2017-04-05] MEDS ORDERED: NACL 0.9% 1000 ML 1,000 ML IV SCH (23:45)
[2017-04-05] MEDS ORDERED: D5W/0.45% NACL/KCL 20 MEQ 20 MEQ/1,000 ML BAG IV SCH (23:45)
[2017-04-05] MEDS ORDERED: SODIUM CHLORIDE FLUSH SYRINGE 10 ML IV PRN (23:45)
--- NOTE | 2017-04-05 23:58 | History and Physical Report ---
History of Present Illness Date of examination: 04/06/17 History of present illness: 31-year-old male with a history of hypertension, diabetes, emergency room because while he was at [facility], his legs cramped up, he experienced severe pain and came to the emergency room for evaluation. He stated that he took his insulin today without eating. While he was at [facility] he drank a soda to relieve his symptoms Review Of Systems: Constitutional: no weight loss Ears, eyes, nose, mouth and throat: no nasal congestion, no nasal discharge, no sinus pressure, blurry vision, diplopia Neck: No neck pain or rigidity. Cardiovascular: No chest pain, palpitations Respiratory: No shortness of breath, cough Gastrointestinal: No abdominal pain, hematochezia Genitourinary : no dysuria, frequency , hematuria Musculoskeletal: no muscle ache Integumentary: no rash, no pruritis Neurological: no parathesias, focal weakness Endocrine: no cold or heat intolerance, no polyuria or polydipsia Hematologic/Lymphatic: no easy bruising, no easy bleeding, no gland swelling Allergic/Immunologic: no urticaria, no angioedema. PAST MEDICAL HISTORY: Diabetes, hypertension PAST SURGICAL HISTORY: Fat removal from around the chest FAMILY HISTORY:diabetes SOCIAL HISTORY: Denies alcohol, tobacco, drugs Medications and Allergies Allergies Allergy/AdvReac Type Severity Reaction Status Date / Time Penicillins Allergy Unknown Verified 06/25/16 07:10 Home Medications Medication Instructions Recorded Confirmed Last Taken Type Insulin Glargine [Lantus VIAL] 45 units SQ QHS #1 vial 06/28/16 04/05/17 Rx Insulin Lispro [HumaLOG VIAL] 15 units SQ AC #1 vial 06/28/16 04/05/17 04/05/17 Rx Lisinopril [Zestril TAB] 20 mg PO QDAY #30 tablet 06/28/16 04/05/17 04/05/17 Rx Active Meds: Active Medications Dextrose (D50w (25gm) Syringe) 0 ml IV PRN PRN PRN Reason: Hypoglycemia Potassium Chloride/Dextrose/Sod Cl (D5w/0.45% Nacl/Kcl 20 Meq) 20 meq in 1,000 mls @ 125 mls/hr IV DIRECT DIANA Sodium Chloride (Nacl 0.9% 1000 Ml) 1,000 mls @ 999 mls/hr IV BOLUS ONE Stop: 12/23/17 00:39 Insulin Human Regular 100 (units/ Sodium Chloride) 100 mls @ 10 mls/hr IV TITR DIANA; 10 UNITS/HR PRN Reason: Protocol Sodium Chloride (Sodium Chloride Flush Syringe 10 Ml) 10 ml IV PRN PRN PRN Reason: LINE FLUSH Exam - Physical Exam Narrative exam: Gen. appearance: Patient lying in bed in no acute distress HEENT: Normocephalic/atraumatic, pupils equal round reactive to light, extra occular movement intact, no scleral icterus, no JVD or thyromegaly or nodule, neck is supple, mucous membrane moist, no erythema or exudate Heart: S1-S2, regular rate and rhythm Lungs: Clear to auscultation bilateral breathing comfortable Abdomen: Positive bowel sounds, nontender, nondistended, no organomegaly Extremities: No edema, cyanosis, clubbing Neuro:: Oriented 3 , cranial nerves II-12 intact, speech, motor intact Skin: No rash, nodules, warm dry - Constitutional Vitals: Temp Pulse Resp BP Pulse Ox 98.5 F 113 H 16 125/96 97 04/05/17 19:27 04/05/17 23:00 04/05/17 23:00 04/05/17 23:00 04/05/17 23:00 Results - Labs CBC & Chem 7: 04/05/17 19:33 04/06/17 03:11 Labs: Abnormal lab results 04/05/17 04/05/17 04/05/17 Range/Units 19:12 19:31 19:33 WBC 14.9 H (4.5-11.0) K/mm3 RBC 6.38 H (3.65-5.03) M/mm3 Hgb 17.9 H (11.8-15.2) gm/dl Hct 54.9 H (35.5-45.6) % Lymphocytes % (Manual) 44.0 H (13.4-35.0) % Monocytes % (Manual) 8.0 H (0.0-7.3) % Lymphocytes # (Manual) 6.6 H (1.2-5.4) K/mm3 Monocytes # (Manual) 1.2 H (0.0-0.8) K/mm3 Sodium (137-145) mmol/L Chloride (98-107) mmol/L Carbon Dioxide (22-30) mmol/L BUN (9-20) mg/dL Creatinine (0.8-1.5) mg/dL Glucose (75-100) mg/dL POC Glucose 379 H (70-105) Calcium (8.4-10.2) mg/dL Alkaline Phosphatase (35-129) units/L Ammonia (25-60) umol/L Total Creatine Kinase 180 H (55-170) units/L Total Protein (6.3-8.2) g/dL Albumin (3.9-5) g/dL TSH (0.270-4.200) mlU/mL 04/05/17 04/05/17 04/05/17 Range/Units 19:33 19:33 19:33 WBC (4.5-11.0) K/mm3 RBC (3.65-5.03) M/mm3 Hgb (11.8-15.2) gm/dl Hct (35.5-45.6) % Lymphocytes % (Manual) (13.4-35.0) % Monocytes % (Manual) (0.0-7.3) % Lymphocytes # (Manual) (1.2-5.4) K/mm3 Monocytes # (Manual) (0.0-0.8) K/mm3 Sodium 136 L (137-145) mmol/L Chloride 85.1 L (98-107) mmol/L Carbon Dioxide 14 L (22-30) mmol/L BUN 26 H (9-20) mg/dL Creatinine 2.5 H (0.8-1.5) mg/dL Glucose 634 H* (75-100) mg/dL POC Glucose (70-105) Calcium 12.5 H* (8.4-10.2) mg/dL Alkaline Phosphatase 198 H (35-129) units/L Ammonia 147.0 H (25-60) umol/L Total Creatine Kinase (55-170) units/L Total Protein 9.0 H (6.3-8.2) g/dL Albumin 5.6 H (3.9-5) g/dL TSH 4.660 H (0.270-4.200) mlU/mL 04/05/17 Range/Units 23:15 WBC (4.5-11.0) K/mm3 RBC (3.65-5.03) M/mm3 Hgb (11.8-15.2) gm/dl Hct (35.5-45.6) % Lymphocytes % (Manual) (13.4-35.0) % Monocytes % (Manual) (0.0-7.3) % Lymphocytes # (Manual) (1.2-5.4) K/mm3 Monocytes # (Manual) (0.0-0.8) K/mm3 Sodium (137-145) mmol/L Chloride (98-107) mmol/L Carbon Dioxide (22-30) mmol/L BUN (9-20) mg/dL Creatinine (0.8-1.5) mg/dL Glucose (75-100) mg/dL POC Glucose 261 H (70-105) Calcium (8.4-10.2) mg/dL Alkaline Phosphatase (35-129) units/L Ammonia (25-60) umol/L Total Creatine Kinase (55-170) units/L Total Protein (6.3-8.2) g/dL Albumin (3.9-5) g/dL TSH (0.270-4.200) mlU/mL Assessment and Plan Assessment DKA Metabolic acidosis Dehydration Plan Admit to medicine Continue insulin drip, start IV fluid Check serial chemistry, blood sugar Consult critical care Abnormal TSH, repeat thyroid function once acute illness is over DVT prophylaxis
[2017-04-05] MEDS ORDERED: DULCOLAX PR PRN (23:59)
[2017-04-05] MEDS ORDERED: MILK OF MAGNESIA PO PRN (23:59)
[2017-04-05] MEDS ORDERED: TYLENOL PO PRN (23:59)
[2017-04-05] MEDS ORDERED: ZOFRAN IV PRN (23:59)
[2017-04-06 00:18] LABS: Calcium 11.4 mg/dL (8.4-10.2); Chloride 96.4 mmol/L (98-107); Potassium 3.1 mmol/L (3.6-5.0)
[2017-04-06 00:19] LABS: Magnesium 2.6 mg/dL (1.7-2.3); Phosphorous 4.1 mg/dL (2.5-4.5)
[2017-04-06] MEDS ORDERED: NACL 0.9% 1000 ML 2,000 ML ONE (00:45)
[2017-04-06 02:04] LABS: Anion Gap 25 mmol/L; BUN/Creatinine Ratio 14; Blood Urea Nitrogen 23 mg/dL (9-20); Calcium 10.3 mg/dL (8.4-10.2); Carbon Dioxide 20 mmol/L (22-30); Chloride 101.2 mmol/L (98-107); Glucose 301 mg/dL (75-100); Sodium 143 mmol/L (137-145)
[2017-04-06 02:10] LABS: Potassium 2.7 mmol/L (3.6-5.0)
[2017-04-06 03:48] LABS: Anion Gap 24 mmol/L; BUN/Creatinine Ratio 14; Blood Urea Nitrogen 22 mg/dL (9-20); Calcium 10.4 mg/dL (8.4-10.2); Carbon Dioxide 22 mmol/L (22-30); Chloride 101.7 mmol/L (98-107); Glucose 176 mg/dL (75-100); Potassium 3.3 mmol/L (3.6-5.0); Sodium 144 mmol/L (137-145)
[2017-04-06] MEDS ORDERED: K-DUR PO ONE ×2 (05:24→09:28)
[2017-04-06 06:25] LABS: Anion Gap 23 mmol/L; BUN/Creatinine Ratio 15; Blood Urea Nitrogen 21 mg/dL (9-20); Calcium 9.9 mg/dL (8.4-10.2); Carbon Dioxide 23 mmol/L (22-30); Chloride 102.6 mmol/L (98-107); Glucose 134 mg/dL (75-100); Sodium 146 mmol/L (137-145)
[2017-04-06 06:33] LABS: Potassium 2.9 mmol/L (3.6-5.0)
[2017-04-06 08:18] LABS: Hematocrit 46.7 % (35.5-45.6); Mean Corpuscular HGB Conc 34 % (32-34); Mean Corpuscular Hemoglobin 29 pg (28-32); Mean Corpuscular Volume 85 fl (84-94); Platelet Count 175 K/mm3 (140-440); Red Blood Count 5.51 M/mm3 (3.65-5.03); Red Cell Distribution Width 13.8 % (13.2-15.2); White Blood Count 13.2 K/mm3 (4.5-11.0)
[2017-04-06 08:39] LABS: Anion Gap 21 mmol/L; BUN/Creatinine Ratio 15; Blood Urea Nitrogen 20 mg/dL (9-20); Calcium 9.7 mg/dL (8.4-10.2); Carbon Dioxide 25 mmol/L (22-30); Chloride 102.1 mmol/L (98-107); Glucose 86 mg/dL (75-100); Sodium 145 mmol/L (137-145)
[2017-04-06 09:06] LABS: Potassium 2.9 mmol/L (3.6-5.0)
[2017-04-06] MEDS ORDERED: LOVENOX SUB-Q SCH (10:00)
[2017-04-06] MEDS: LOVENOX SUB-Q SCH (10:17)
[2017-04-06] MEDS ORDERED: D50W (25GM) Syringe IV PRN (11:16)
[2017-04-06] MEDS ORDERED: D5W/0.45% NACL/KCL 40 MEQ 40 MEQ/1,000 ML BAG IV SCH (12:00)
[2017-04-06] MEDS: NOVOLOG SUB-Q SCH ×5 (12:10→23:31)
--- NOTE | 2017-04-06 14:21 | Consultation ---
History of Present Illness Consult date: 04/06/17 History of present illness: This is a 31-year-old -[place] male admitted with leg cramps and was found to have diabetic ketoacidosis. Patient has been treated with insulin drip with improvement in his condition. Patient denies any nausea vomiting or abdominal pain at this time. Just finished eating his lunch. Anion gap has now normalized. Past History Past Medical History: diabetes, hypertension Medications and Allergies Allergies Allergy/AdvReac Type Severity Reaction Status Date / Time Penicillins Allergy Unknown Verified 06/25/16 07:10 Home Medications Medication Instructions Recorded Confirmed Last Taken Type Insulin Glargine [Lantus VIAL] 45 units SQ QHS #1 vial 06/28/16 04/05/17 Rx Insulin Lispro [HumaLOG VIAL] 15 units SQ AC #1 vial 06/28/16 04/05/17 04/05/17 Rx Lisinopril [Zestril TAB] 20 mg PO QDAY #30 tablet 06/28/16 04/05/17 04/05/17 Rx Active Meds: Active Medications Acetaminophen (Tylenol) 650 mg PO Q4H PRN PRN Reason: Pain MILD(1-3)/Fever >100.5/ABDI Bisacodyl (Dulcolax) 10 mg [place] QDAY PRN PRN Reason: Constipation unrelieved by MOM Dextrose (D50w (25gm) Syringe) 0 ml IV PRN PRN PRN Reason: Hypoglycemia Dextrose (D50w (25gm) Syringe) 50 ml IV PRN PRN PRN Reason: Hypoglycemia Enoxaparin Sodium (Lovenox) 40 mg SUB-Q QDAY@1000 DIANA Last Admin: 04/06/17 10:17 Dose: Not Given Insulin Human Regular 100 (units/ Sodium Chloride) 100 mls @ 10 mls/hr IV TITR DIANA; 10 UNITS/HR PRN Reason: Protocol Last Titration: 04/06/17 12:00 Dose: 0 units/hr, 0 mls/hr Potassium Chloride/Dextrose/Sod Cl (D5w/0.45% Nacl/Kcl 40 Meq) 40 meq in 1,000 mls @ 125 mls/hr IV DIRECT DIANA Stop: 04/08/17 19:59 Insulin Aspart (Novolog) 3 units SUB-Q AC DIANA Last Admin: 04/06/17 12:17 Dose: 3 units Insulin Aspart (Novolog) 0 units SUB-Q ACHS DIANA PRN Reason: Protocol Last Admin: 04/06/17 12:10 Dose: Not Given Insulin Detemir (Levemir) 10 units SUB-Q QHS DIANA Magnesium Hydroxide (Milk Of Magnesia) 30 ml PO Q4H PRN PRN Reason: Constipation Ondansetron HCl (Zofran) 4 mg IV Q8H PRN PRN Reason: N/V unrelieved by Reglan Sodium Chloride (Sodium Chloride Flush Syringe 10 Ml) 10 ml IV PRN PRN PRN Reason: LINE FLUSH Review of Systems All systems: negative Constitutional: anorexia, fatigue, weakness, poor appetite Physical Examination Vital signs: Vital Signs BP 142/96 04/05/17 19:09 General appearance: no acute distress Eyes: non-icteric ENT: oropharynx moist Neck: supple, no JVD Ascultation: Bilateral: clear Cardiovascular: regular rate and rhythm Gastrointestinal: normoactive bowel sounds, soft, non-tender Integumentary: normal Extremities: no cyanosis, no edema Musculoskeletal: no deformities normal mental status Results - Laboratory Findings CBC and BMP: 04/06/17 08:07 04/06/17 08:07 Abnormal lab findings: Abnormal Labs 04/05/17 04/05/17 04/05/17 19:12 19:31 19:33 WBC 14.9 H RBC 6.38 H Hgb 17.9 H Hct 54.9 H Lymphocytes % (Manual) 44.0 H Monocytes % (Manual) 8.0 H Lymphocytes # (Manual) 6.6 H Monocytes # (Manual) 1.2 H Sodium Potassium Chloride Carbon Dioxide BUN Creatinine Glucose POC Glucose 379 H Calcium Magnesium Alkaline Phosphatase Ammonia Total Creatine Kinase 180 H Total Protein Albumin TSH 04/05/17 04/05/17 04/05/17 19:33 19:33 19:33 WBC RBC Hgb Hct Lymphocytes % (Manual) Monocytes % (Manual) Lymphocytes # (Manual) Monocytes # (Manual) Sodium 136 L Potassium Chloride 85.1 L Carbon Dioxide 14 L BUN 26 H Creatinine 2.5 H Glucose 634 H* POC Glucose Calcium 12.5 H* Magnesium Alkaline Phosphatase 198 H Ammonia 147.0 H Total Creatine Kinase Total Protein 9.0 H Albumin 5.6 H TSH 4.660 H 04/05/17 04/05/17 04/05/17 23:15 23:48 23:48 WBC RBC Hgb Hct Lymphocytes % (Manual) Monocytes % (Manual) Lymphocytes # (Manual) Monocytes # (Manual) Sodium Potassium 3.1 L Chloride 96.4 L Carbon Dioxide BUN 23 H Creatinine 1.8 H Glucose 349 H POC Glucose 261 H Calcium 11.4 H Magnesium 2.60 H Alkaline Phosphatase Ammonia Total Creatine Kinase Total Protein Albumin TSH 04/06/17 04/06/17 04/06/17 00:58 01:20 02:42 WBC RBC Hgb Hct Lymphocytes % (Manual) Monocytes % (Manual) Lymphocytes # (Manual) Monocytes # (Manual) Sodium Potassium 2.7 L* Chloride Carbon Dioxide 20 L BUN 23 H Creatinine 1.6 H Glucose 301 H POC Glucose 316 H 202 H Calcium 10.3 H Magnesium Alkaline Phosphatase Ammonia Total Creatine Kinase Total Protein Albumin TSH 04/06/17 04/06/17 04/06/17 03:11 04:19 05:04 WBC RBC Hgb Hct Lymphocytes % (Manual) Monocytes % (Manual) Lymphocytes # (Manual) Monocytes # (Manual) Sodium Potassium 3.3 L D Chloride Carbon Dioxide BUN 22 H Creatinine 1.6 H Glucose 176 H POC Glucose 136 H 159 H Calcium 10.4 H Magnesium Alkaline Phosphatase Ammonia Total Creatine Kinase Total Protein Albumin TSH 04/06/17 04/06/17 04/06/17 05:31 08:07 08:07 WBC 13.2 H RBC 5.51 H Hgb 16.0 H Hct 46.7 H D Lymphocytes % (Manual) Monocytes % (Manual) Lymphocytes # (Manual) Monocytes # (Manual) Sodium 146 H Potassium 2.9 L* 2.9 L* Chloride Carbon Dioxide BUN 21 H Creatinine Glucose 134 H POC Glucose Calcium Magnesium Alkaline Phosphatase Ammonia Total Creatine Kinase Total Protein Albumin TSH Assessment and Plan Diabetic ketosis acidosis significantly improved Hypertension Hypokalemia. Recommendation Agree to move this patient out of ICU. Potassium supplements as needed. Total critical care time 31 minute
--- NOTE | 2017-04-06 15:11 | Progress Note ---
Assessment and Plan Assessment and plan: 31-year-old man who presented to the hospital with elevated glucose and confusion. Found to have DKA DKA Continue insulin drip, IV fluids, we'll try to transition to subcutaneous tissues insulin status today Metabolic acidosis Due to DKA, improving Dehydration Continue IV fluids Hypokalemia Continue to replete Metabolic encephalopathy Due to DKA, now resolving The high probability of a clinically significant, sudden or life threatening deterioration of the [endocrine] system(s) required my full and direct attention , intervention and personal management. The aggregate critical care time was [44 ] minutes. This time is in addition to time spent performing reported procedures but includes the following: [] Data Review and interpretation [] Patient assessment and monitoring of vital signs [] Documentation [] Medication orders and management History Interval history: Review of systems Constitutional: No fevers, no malaise, no joint pains CVS: No chest pain, no orthopnea, no dyspnea on exertion, no pedal edema GI: No abdominal pain, no diarrhea, no vomiting, no constipation Respiratory: No shortness of breath, no wheezing, no coughing Hospitalist Physical - Physical exam Narrative exam: General.: Appears well, no distress, nontoxic HEENT: Moist mucous membranes, extraocular muscles intact, no lymphadenopathy Neck: supple Cardiac: S1-S2 heard Lungs: clear to auscultation bilaterally Abdomen: soft , nontender, nondistended, bowel sounds positive Extremities: no edema clubbing or cyanosis Skin: no rash or lesions Neurologic: no gross focal deficits Psych: appropriate behavior, appropriate mood, corporative, judgment intact - Constitutional Vitals: Temp Pulse Resp BP Pulse Ox 97.8 F 81 22 138/92 100 04/06/17 12:00 04/06/17 14:31 04/06/17 14:31 04/06/17 14:31 04/06/17 14:31 Results - Labs CBC & Chem 7: 04/06/17 08:07 04/06/17 21:44 Labs: Laboratory Last Values WBC 13.2 K/mm3 (4.5-11.0) H 04/06/17 08:07 RBC 5.51 M/mm3 (3.65-5.03) H 04/06/17 08:07 Hgb 16.0 gm/dl (11.8-15.2) H 04/06/17 08:07 Hct 46.7 % (35.5-45.6) H D 04/06/17 08:07 MCV 85 fl (84-94) 04/06/17 08:07 MCH 29 pg (28-32) 04/06/17 08:07 MCHC 34 % (32-34) 04/06/17 08:07 RDW 13.8 % (13.2-15.2) 04/06/17 08:07 Plt Count 175 K/mm3 (140-440) 04/06/17 08:07 Lymph # Advisory Software Engineer 04/05/17 19:33 Add Manual Diff Complete 04/05/17 19:33 Total Counted 100 04/05/17 19:33 Seg Neuts % (Manual) 48.0 % (40.0-70.0) 04/05/17 19:33 Band Neutrophils % 0 % 04/05/17 19:33 Lymphocytes % (Manual) 44.0 % (13.4-35.0) H 04/05/17 19:33 Reactive Lymphs % (Man) 0 % 04/05/17 19:33 Monocytes % (Manual) 8.0 % (0.0-7.3) H 04/05/17 19:33 Eosinophils % (Manual) 0 % (0.0-4.3) 04/05/17 19:33 Basophils % (Manual) 0 % (0.0-1.8) 04/05/17 19:33 Metamyelocytes % 0 % 04/05/17 19:33 Myelocytes % 0 % 04/05/17 19:33 Promyelocytes % 0 % 04/05/17 19:33 Blast Cells % 0 % 04/05/17 19:33 Nucleated RBC % Not Reportable 04/05/17 19:33 Seg Neutrophils # Man 7.2 K/mm3 (1.8-7.7) 04/05/17 19:33 Band Neutrophils # 0.0 K/mm3 04/05/17 19:33 Lymphocytes # (Manual) 6.6 K/mm3 (1.2-5.4) H 04/05/17 19:33 Abs React Lymphs (Man) 0.0 K/mm3 04/05/17 19:33 Monocytes # (Manual) 1.2 K/mm3 (0.0-0.8) H 04/05/17 19:33 Eosinophils # (Manual) 0.0 K/mm3 (0.0-0.4) 04/05/17 19:33 Basophils # (Manual) 0.0 K/mm3 (0.0-0.1) 04/05/17 19:33 Metamyelocytes # 0.0 K/mm3 04/05/17 19:33 Myelocytes # 0.0 K/mm3 04/05/17 19:33 Promyelocytes # 0.0 K/mm3 04/05/17 19:33 Blast Cells # 0.0 K/mm3 04/05/17 19:33 WBC Morphology Not Reportable 04/05/17 19:33 Hypersegmented Neuts Not Reportable 04/05/17 19:33 Hyposegmented Neuts Not Reportable 04/05/17 19:33 Hypogranular Neuts Not Reportable 04/05/17 19:33 Smudge Cells Not Reportable 04/05/17 19:33 Toxic Granulation Not Reportable 04/05/17 19:33 Toxic Vacuolation Not Reportable 04/05/17 19:33 Dohle Bodies Not Reportable 04/05/17 19:33 Pelger-Huet Anomaly Not Reportable 04/05/17 19:33 An Rods Not Reportable 04/05/17 19:33 Platelet Estimate Appears normal 04/05/17 19:33 Clumped Platelets Not Reportable 04/05/17 19:33 Plt Clumps, EDTA Not Reportable 04/05/17 19:33 Large Platelets Not Reportable 04/05/17 19:33 Giant Platelets Not Reportable 04/05/17 19:33 Platelet Satelliting Not Reportable 04/05/17 19:33 Plt Morphology Comment Not Reportable 04/05/17 19:33 RBC Morphology Not Reportable 04/05/17 19:33 Dimorphic RBCs Not Reportable 04/05/17 19:33 Polychromasia Not Reportable 04/05/17 19:33 Hypochromasia Not Reportable 04/05/17 19:33 Poikilocytosis 1+ 04/05/17 19:33 Anisocytosis Not Reportable 04/05/17 19:33 Microcytosis Not Reportable 04/05/17 19:33 Macrocytosis Not Reportable 04/05/17 19:33 Spherocytes Not Reportable 04/05/17 19:33 Pappenheimer Bodies Not Reportable 04/05/17 19:33 Sickle Cells Not Reportable 04/05/17 19:33 Target Cells Not Reportable 04/05/17 19:33 Tear Drop Cells Not Reportable 04/05/17 19:33 Ovalocytes Not Reportable 04/05/17 19:33 Helmet Cells Not Reportable 04/05/17 19:33 [place] Bodies Not Reportable 04/05/17 19:33 [place] Rings Not Reportable 04/05/17 19:33 [place] Cells Not Reportable 04/05/17 19:33 Bite Cells Not Reportable 04/05/17 19:33 Crenated Cell Not Reportable 04/05/17 19:33 Elliptocytes Not Reportable 04/05/17 19:33 Acanthocytes (Spur) Not Reportable 04/05/17 19:33 Rouleaux Not Reportable 04/05/17 19:33 Hemoglobin C Crystals Not Reportable 04/05/17 19:33 Schistocytes Not Reportable 04/05/17 19:33 Malaria parasites Not Reportable 04/05/17 19:33 Raj Bodies Not Reportable 04/05/17 19:33 Hem Pathologist Commnt No 04/05/17 19:33 VBG pH 7.342 (7.320-7.420) 04/05/17 19:36 Sodium 145 mmol/L (137-145) 04/06/17 08:07 Potassium 2.9 mmol/L (3.6-5.0) L* 04/06/17 08:07 Chloride 102.1 mmol/L (98-107) 04/06/17 08:07 Carbon Dioxide 25 mmol/L (22-30) 04/06/17 08:07 Anion Gap 21 mmol/L 04/06/17 08:07 BUN 20 mg/dL (9-20) 04/06/17 08:07 Creatinine 1.3 mg/dL (0.8-1.5) 04/06/17 08:07 Estimated GFR > 60 ml/min 04/06/17 08:07 BUN/Creatinine Ratio 15 % 04/06/17 08:07 Glucose 86 mg/dL (75-100) 04/06/17 08:07 POC Glucose 87 (70-105) 04/06/17 06:52 Calcium 9.7 mg/dL (8.4-10.2) 04/06/17 08:07 Phosphorus 4.10 mg/dL (2.5-4.5) 04/05/17 23:48 Magnesium 2.60 mg/dL (1.7-2.3) H 04/05/17 23:48 Total Bilirubin 0.50 mg/dL (0.1-1.2) 04/05/17 19:33 AST 17 units/L (5-40) 04/05/17 19:33 ALT 23 units/L (7-56) 04/05/17 19:33 Alkaline Phosphatase 198 units/L (35-129) H 04/05/17 19:33 Ammonia 147.0 umol/L (25-60) H 04/05/17 19:33 Total Creatine Kinase 180 units/L (55-170) H 04/05/17 19:31 CK-MB (CK-2) 1.7 ng/mL (0.0-4.0) 04/05/17 19:31 CK-MB (CK-2) Rel Index 0.9 (0-4) 04/05/17 19:31 Troponin T < 0.010 ng/mL (0.00-0.029) 04/05/17 19:31 Total Protein 9.0 g/dL (6.3-8.2) H 04/05/17 19:33 Albumin 5.6 g/dL (3.9-5) H 04/05/17 19:33 Albumin/Globulin Ratio 1.6 % 04/05/17 19:33 TSH 4.660 mlU/mL (0.270-4.200) H 04/05/17 19:33 Free T4 1.33 ng/dL (0.76-1.46) 04/05/17 19:33 Urine Color Yellow (Yellow) 04/05/17 22:20 Urine Turbidity Clear (Clear) 04/05/17 22:20 Urine pH 5.0 (5.0-7.0) 04/05/17 22:20 Ur Specific [place] 1.024 (1.003-1.030) 04/05/17 22:20 Urine Protein 30 mg/dl mg/dL (Negative) 04/05/17 22:20 Urine Glucose (UA) >=500 mg/dL (Negative) 04/05/17 22:20 Urine Ketones Neg mg/dL (Negative) 04/05/17 22:20 Urine Blood Sm (Negative) 04/05/17 22:20 Urine Nitrite Neg (Negative) 04/05/17 22:20 Urine Bilirubin Neg (Negative) 04/05/17 22:20 Urine Urobilinogen < 2.0 mg/dL (<2.0) 04/05/17 22:20 Ur Leukocyte Esterase Neg (Negative) 04/05/17 22:20 Urine WBC (Auto) 3.0 /HPF (0.0-6.0) 04/05/17 22:20 Urine RBC (Auto) 1.0 /HPF (0.0-6.0) 04/05/17 22:20 Urine Bacteria (Auto) 1+ /HPF (Negative) 04/05/17 22:20 Urine Mucus Few /HPF 04/05/17 22:20 Urine Opiates Screen Presumptive negative 04/05/17 22:20 Urine Methadone Screen Presumptive negative 04/05/17 22:20 Ur Barbiturates Screen Presumptive negative 04/05/17 22:20 Ur Phencyclidine Scrn Presumptive negative 04/05/17 22:20 Ur Amphetamines Screen Presumptive negative 04/05/17 22:20 U Benzodiazepines Scrn Presumptive negative 04/05/17 22:20 Urine Cocaine Screen Presumptive negative 04/05/17 22:20 U Marijuana (THC) Screen Presumptive negative 04/05/17 22:20 Drugs of Abuse Note Disclamer 04/05/17 22:20
[2017-04-06 16:48] LABS: BUN/Creatinine Ratio 15; Blood Urea Nitrogen 21 mg/dL (9-20); Calcium 8.6 mg/dL (8.4-10.2); Carbon Dioxide 22 mmol/L (22-30); Glucose 316 mg/dL (75-100)
[2017-04-06 16:49] LABS: Anion Gap 22 mmol/L; Chloride 95.3 mmol/L (98-107); Potassium 4.1 mmol/L (3.6-5.0); Sodium 135 mmol/L (137-145)
[2017-04-06 21:53] LABS: BUN/Creatinine Ratio 14; Blood Urea Nitrogen 18 mg/dL (9-20); Calcium 8.3 mg/dL (8.4-10.2); Carbon Dioxide 26 mmol/L (22-30); Glucose 366 mg/dL (75-100); Potassium 3.7 mmol/L (3.6-5.0); Sodium 132 mmol/L (137-145)
[2017-04-06] MEDS ORDERED: LEVEMIR SUB-Q SCH ×2 (22:00)
[2017-04-06 22:07] LABS: Anion Gap 18 mmol/L
[2017-04-07] MEDS: NOVOLOG SUB-Q SCH ×4 (07:57→11:37)
[2017-04-07 08:15] VITALS: BP 130/97
[2017-04-07] MEDS: LOVENOX SUB-Q SCH (09:12)
--- NOTE | 2017-04-07 10:19 | Discharge Summary ---
Providers - Providers Date of Admission: 04/05/17 23:59 Attending physician: FABI CARPENTER MD 04/05/17 23:59 Consult to Physician [CONS] Routine Consulting Provider: JACQUIE ROSARIO Reason For Exam: cc Place consult to:: Dr. Rosario Notified:: Answering Service Phone number called:: [phone] Primary care physician: NATHAN LAZARO Hospitalization Condition: Serious Hospital course: 31-year-old man who presented to the hospital with elevated glucose and confusion. Found to have DKA. He received insulin drip, IV fluids. He was successfully transitioned to the cutaneous insulins, his electrolytes were repleted. He clinically improved on subsequently discharged Discharge diagnosis Uncontrolled diabetes type 1 DKA Metabolic acidosis Dehydration Hypokalemia Metabolic encephalopathy Disposition: DC-01 TO HOME OR SELFCARE Time spent for discharge: 33 minutes Core Measure Documentation - Palliative Care Palliative Care/ Comfort Measures: Not Applicable - Core Measures Any of the following diagnoses?: none Exam - Constitutional Vitals: Temp Pulse Resp BP Pulse Ox 97.6 F 72 16 130/97 99 04/07/17 07:31 04/07/17 07:31 04/07/17 07:31 04/07/17 07:31 04/07/17 09:27 General appearance: Present: no acute distress, well-nourished - EENT Eyes: Present: PERRL ENT: hearing intact, clear oral mucosa - Neck Neck: Present: supple, normal ROM - Respiratory Respiratory effort: normal Respiratory: bilateral: CTA - Cardiovascular Heart Sounds: Present: S1 & S2. Absent: rub, click - Extremities Extremities: pulses symmetrical, No edema Peripheral Pulses: within normal limits - Abdominal General gastrointestinal: Present: soft, non-tender, non-distended, normal bowel sounds Male genitourinary: Present: normal - Integumentary Integumentary: Present: clear, warm, dry - Musculoskeletal Musculoskeletal: gait normal, strength equal bilaterally - Psychiatric Psychiatric: appropriate mood/affect, intact judgment & insight - Neurologic Neurologic: CNII-XII intact, moves all extremities Plan Follow up with: PRIMARY CARE, [Referring] - 3-5 Days Prescriptions: Insulin Glargine [Lantus] 22 unit SUB-Q QHS #1 vial Insulin Lispro [Humalog] 0 unit SQ QACHS #1 vial Insulin Lispro [HumaLOG VIAL] 7 units SQ AC #1 vial Lisinopril [Zestril TAB] 20 mg PO QDAY #30 tablet
== END 2017-04-07 12:15 | disposition home or self-care (01) | DRG 639 ==
LOC: ED 19:02 → CC1 23:59 → 3A 04-06 14:17
PROVIDERS: ADMIT Internal Medicine; ATTEND Internal Medicine
DX: E11.10 Type 2 diabetes mellitus with ketoacidosis without coma (principal); E86.0 Dehydration; E87.6 Hypokalemia; I10 Essential (primary) hypertension; Z88.0 Allergy status to penicillin; Z83.3 Family history of diabetes mellitus
CPT/HCPCS: 36415; 80048; 80053; 80307; 81001; 82140; 82550; 82553; 82805; 82962; 83735; 84100; 84439; 84443; 84484; 85007; 85025; 85027; 93005; 93010; 96360; 96361; J1650; J1815; J1818; J7030

== ENCOUNTER 2018-07-08 17:18 | Inpatient (IN) | payer OTHER ==
--- NOTE | 2018-07-08 17:47 | Emergency Department Report ---
Stated Complaint: WEAK/VOMITING/NAUSE/DIARRHEA Time Seen by Provider: 07/08/18 17:41 - HPI History of Present Illness: This is a 33 y.o. male that presents with weakness since yesterday. PMH: DM - ROS Review of Systems: N/V/D and weakness - Exam Vital Signs: Vital Signs 07/08/18 17:41 Temperature 98 F Pulse Rate 138 H Respiratory 18 Rate Blood Pressure 141/96 O2 Sat by Pulse 99 Oximetry MSE screening note: Focused history and physical exam performed. Due to findings the following was ordered: Labs POC [address] [facility] for further evaluation. ED Disposition for MSE Condition: Stable
[2018-07-08 18:33] LABS: Basophils # (Auto) 0.1 K/mm3 (0.0-0.1); Basophils % (Auto) 0.9 % (0.0-1.8); Eosinophils % (Auto) 0.3 % (0.0-4.3); Hematocrit 47.2 % (35.5-45.6); Hemoglobin 16.5 gm/dl (11.8-15.2); Lymphocytes % (Auto) 14.5 % (13.4-35.0); Mean Corpuscular HGB Conc 35 % (32-34); Mean Corpuscular Volume 85 fl (84-94); Monocytes # (Auto) 0.5 K/mm3 (0.0-0.8); Monocytes % (Auto) 6.9 % (0.0-7.3); Platelet Count 241 K/mm3 (140-440); Red Blood Count 5.57 M/mm3 (3.65-5.03); Red Cell Distribution Width 13.1 % (13.2-15.2)
[2018-07-08 18:58] LABS: BUN/Creatinine Ratio 17; Blood Urea Nitrogen 22 mg/dL (9-20); Calcium 9.9 mg/dL (8.4-10.2); Hemolysis Index 10
[2018-07-08] MEDS ORDERED: D50W (25GM) Syringe IV PRN (20:32)
[2018-07-08] MEDS ORDERED: NACL 0.9% 1000 ML 2,000 ML IV ONE (20:32)
--- NOTE | 2018-07-08 20:42 | Emergency Department Report ---
ED General Adult HPI - General Chief complaint: Hyperglycemia Stated complaint: WEAK/VOMITING/NAUSE/DIARRHEA Time Seen by Provider: 07/08/18 17:41 Source: patient, RN notes reviewed, old records reviewed Mode of arrival: Ambulatory Limitations: No Limitations - History of Present Illness Initial comments: This is a 33-year-old gentleman who is not known to this provider previously. Patient reports his primary care doctor is Dr. Gabriel. Past medical history includes diabetes, hypertension, renal insufficiency, now resolved. The patient presents to the emergency room with a complaint of painless weakness. He denies headache, neck pain, chest pain, abdominal pain, shortness of breath and dysuria. He does admit to partial dietary indiscretions over the weekend, reporting that he ate sugary sweets for her birthday. He is currently asking to drink water. The weakness is intermittent, painless, does not radiate anywhere, does not appear to have exacerbating or relieving factors. -: Gradual, days(s) Severity scale (0 -10): 0 Consistency: intermittent Improves with: none Worsens with: none Associated Symptoms: weakness - Related Data Previous Rx's Medication Instructions Recorded Last Taken Type Insulin Glargine [Lantus] 22 unit SUB-Q QHS #1 vial 04/07/17 Unknown Rx Insulin Lispro [HumaLOG VIAL] 7 units SQ AC #1 vial 04/07/17 Unknown Rx Lisinopril [Zestril TAB] 20 mg PO QDAY #30 tablet 04/07/17 Unknown Rx Lispro Insulin [Humalog] 0 unit SQ QACHS #1 vial 04/07/17 Unknown Rx Allergies Allergy/AdvReac Type Severity Reaction Status Date / Time Penicillins Allergy Unknown Verified 06/25/16 07:10 ED Review of Systems ROS: Stated complaint: WEAK/VOMITING/NAUSE/DIARRHEA Other details as noted in HPI Constitutional: denies: fever Eyes: denies: vision change ENT: denies: epistaxis Respiratory: denies: cough Cardiovascular: denies: chest pain Gastrointestinal: denies: nausea, vomiting Genitourinary: denies: as per HPI, dysuria Musculoskeletal: denies: back pain Skin: denies: lesions Neurological: weakness. denies: headache, numbness, paresthesias, confusion Psychiatric: denies: anxiety ED Past Medical Hx - Past Medical History Previous Medical History?: Yes Hx Hypertension: Yes Hx Congestive Heart Failure: No Hx Diabetes: Yes Hx Asthma: No Hx COPD: No - Surgical History Past Surgical History?: Yes Additional Surgical History: "chest surgery" - Social History Smoking Status: Never Smoker Substance Use Type: None - Medications Home Medications: Home Medications Medication Instructions Recorded Confirmed Last Taken Type Insulin Glargine [Lantus] 22 unit SUB-Q QHS #1 vial 04/07/17 Unknown Rx Insulin Lispro [HumaLOG VIAL] 7 units SQ AC #1 vial 04/07/17 Unknown Rx Lisinopril [Zestril TAB] 20 mg PO QDAY #30 tablet 04/07/17 Unknown Rx Lispro Insulin [Humalog] 0 unit SQ QACHS #1 vial 04/07/17 Unknown Rx ED Physical Exam - General Limitations: No Limitations General appearance: alert, in no apparent distress - Head Head exam: Present: atraumatic, normocephalic - Eye Eye exam: Present: normal appearance, EOMI. Absent: nystagmus - ENT ENT exam: Present: normal orophraynx, mucous membranes dry, normal external ear exam - Neck Neck exam: Present: normal inspection, full ROM. Absent: tenderness, meningismus - Respiratory Respiratory exam: Present: normal lung sounds bilaterally. Absent: respiratory distress - Cardiovascular Cardiovascular Exam: Present: normal rhythm, tachycardia, normal heart sounds. Absent: systolic murmur, diastolic murmur, rubs, gallop - GI/Abdominal GI/Abdominal exam: Present: soft. Absent: distended, tenderness, guarding, rebound, rigid, pulsatile mass - Rectal Rectal exam: Present: deferred - Extremities Exam Extremities exam: Present: normal inspection, full ROM, other (2+ pulses noted in the bilateral upper, lower extremities. Compartments soft. No long bony tenderness. The pelvis is stable.). Absent: pedal edema, joint swelling, calf tenderness - Back Exam Back exam: Present: normal inspection, full ROM. Absent: tenderness, CVA tenderness (R), paraspinal tenderness, vertebral tenderness - Neurological Exam Neurological exam: Present: alert, oriented X3, CN II-XII intact, normal gait, other (Extraocular movements intact. Tongue midline. No facial droop. Facial sensation intact to light touch in the V1, V2, V3 distribution bilaterally. 5 and 5 strength in 4 extremities.. Sensation is intact to light touch in 4 extremities.). Absent: motor sensory deficit - Psychiatric Psychiatric exam: Present: normal affect, normal mood - Skin Skin exam: Present: warm, dry, intact, normal color. Absent: rash ED Course Vital Signs 07/08/18 07/08/18 07/08/18 17:41 19:00 19:15 Temperature 98 F Pulse Rate 138 H 127 H 120 H Respiratory 18 22 17 Rate Blood Pressure 141/96 136/74 136/74 O2 Sat by Pulse 99 95 Oximetry 07/08/18 07/08/18 07/08/18 19:30 19:45 20:00 Temperature Pulse Rate 118 H 127 H 121 H Respiratory 16 22 25 H Rate Blood Pressure 141/102 141/102 131/82 O2 Sat by Pulse 98 97 Oximetry 07/08/18 07/08/18 07/08/18 20:15 20:30 20:45 Temperature Pulse Rate 120 H 118 H 112 H Respiratory 25 H 19 15 Rate Blood Pressure 131/82 127/82 127/82 O2 Sat by Pulse 97 97 Oximetry ED Medical Decision Making - Lab Data Result diagrams: 07/08/18 18:05 07/08/18 21:03 Vital Signs 07/08/18 07/08/18 07/08/18 17:41 19:00 19:15 Temperature 98 F Pulse Rate 138 H 127 H 120 H Respiratory 18 22 17 Rate Blood Pressure 141/96 136/74 136/74 O2 Sat by Pulse 99 95 Oximetry 07/08/18 07/08/18 07/08/18 19:30 19:45 20:00 Temperature Pulse Rate 118 H 127 H 121 H Respiratory 16 22 25 H Rate Blood Pressure 141/102 141/102 131/82 O2 Sat by Pulse 98 97 Oximetry 07/08/18 07/08/18 07/08/18 20:15 20:30 20:45 Temperature Pulse Rate 120 H 118 H 112 H Respiratory 25 H 19 15 Rate Blood Pressure 131/82 127/82 127/82 O2 Sat by Pulse 97 97 Oximetry Lab Results 07/08/18 07/08/18 07/08/18 Range/Units 17:40 18:05 18:05 WBC 6.8 (4.5-11.0) K/mm3 RBC 5.57 H (3.65-5.03) M/mm3 Hgb 16.5 H (11.8-15.2) gm/dl Hct 47.2 H (35.5-45.6) % MCV 85 (84-94) fl MCH 30 (28-32) pg MCHC 35 H (32-34) % RDW 13.1 L (13.2-15.2) % Plt Count 241 (140-440) K/mm3 Lymph % (Auto) 14.5 (13.4-35.0) % [place] % (Auto) 6.9 (0.0-7.3) % Eos % (Auto) 0.3 (0.0-4.3) % Baso % (Auto) 0.9 (0.0-1.8) % Lymph # 1.0 L (1.2-5.4) K/mm3 [place] # 0.5 (0.0-0.8) K/mm3 Eos # 0.0 (0.0-0.4) K/mm3 Baso # 0.1 (0.0-0.1) K/mm3 Seg Neutrophils % 77.4 H (40.0-70.0) % Seg Neutrophils # 5.3 (1.8-7.7) K/mm3 VBG pH (7.320-7.420) Sodium 131 L (137-145) mmol/L Potassium 4.2 (3.6-5.0) mmol/L Chloride 87.6 L (98-107) mmol/L Carbon Dioxide 21 L (22-30) mmol/L Anion Gap 27 mmol/L BUN 22 H (9-20) mg/dL Creatinine 1.3 (0.8-1.5) mg/dL Estimated GFR > 60 ml/min BUN/Creatinine Ratio 17 % Glucose 577 H* (75-100) mg/dL POC Glucose 428 H (70-105) Calcium 9.9 (8.4-10.2) mg/dL Phosphorus (2.5-4.5) mg/dL Magnesium (1.7-2.3) mg/dL Total Creatine Kinase (55-170) units/L 07/08/18 07/08/18 07/08/18 Range/Units 21:03 21:03 21:03 WBC (4.5-11.0) K/mm3 RBC (3.65-5.03) M/mm3 Hgb (11.8-15.2) gm/dl Hct (35.5-45.6) % MCV (84-94) fl MCH (28-32) pg MCHC (32-34) % RDW (13.2-15.2) % Plt Count (140-440) K/mm3 Lymph % (Auto) (13.4-35.0) % [place] % (Auto) (0.0-7.3) % Eos % (Auto) (0.0-4.3) % Baso % (Auto) (0.0-1.8) % Lymph # (1.2-5.4) K/mm3 [place] # (0.0-0.8) K/mm3 Eos # (0.0-0.4) K/mm3 Baso # (0.0-0.1) K/mm3 Seg Neutrophils % (40.0-70.0) % Seg Neutrophils # (1.8-7.7) K/mm3 VBG pH 7.361 (7.320-7.420) Sodium (137-145) mmol/L Potassium (3.6-5.0) mmol/L Chloride (98-107) mmol/L Carbon Dioxide (22-30) mmol/L Anion Gap mmol/L BUN (9-20) mg/dL Creatinine (0.8-1.5) mg/dL Estimated GFR ml/min BUN/Creatinine Ratio % Glucose (75-100) mg/dL POC Glucose (70-105) Calcium (8.4-10.2) mg/dL Phosphorus 4.70 H (2.5-4.5) mg/dL Magnesium 1.90 1.90 (1.7-2.3) mg/dL Total Creatine Kinase 53 L (55-170) units/L 07/08/18 07/08/18 Range/Units 21:03 22:05 WBC (4.5-11.0) K/mm3 RBC (3.65-5.03) M/mm3 Hgb (11.8-15.2) gm/dl Hct (35.5-45.6) % MCV (84-94) fl MCH (28-32) pg MCHC (32-34) % RDW (13.2-15.2) % Plt Count (140-440) K/mm3 Lymph % (Auto) (13.4-35.0) % [place] % (Auto) (0.0-7.3) % Eos % (Auto) (0.0-4.3) % Baso % (Auto) (0.0-1.8) % Lymph # (1.2-5.4) K/mm3 [place] # (0.0-0.8) K/mm3 Eos # (0.0-0.4) K/mm3 Baso # (0.0-0.1) K/mm3 Seg Neutrophils % (40.0-70.0) % Seg Neutrophils # (1.8-7.7) K/mm3 VBG pH (7.320-7.420) Sodium 135 L (137-145) mmol/L Potassium 4.2 (3.6-5.0) mmol/L Chloride 93.2 L (98-107) mmol/L Carbon Dioxide 24 (22-30) mmol/L Anion Gap 22 mmol/L BUN 22 H (9-20) mg/dL Creatinine 1.2 (0.8-1.5) mg/dL Estimated GFR > 60 ml/min BUN/Creatinine Ratio 18 % Glucose 422 H (75-100) mg/dL POC Glucose 344 H (70-105) Calcium 8.9 (8.4-10.2) mg/dL Phosphorus (2.5-4.5) mg/dL Magnesium (1.7-2.3) mg/dL Total Creatine Kinase (55-170) units/L - EKG Data -: EKG Interpreted by Mo EKG shows normal: sinus rhythm Rate: normal - EKG Data Interpretation: normal EKG 07/08/18 22:18 Normal sinus, 96 bpm, normal axis, QTC within normal limits, poor R-wave progression, not having chest pain, abnormal EKG, not consistent with ST elevation myocardial infarction. When compared to prior EKG from March 2017, nonspecific changes are noted. - Radiology Data Radiology results: image reviewed interpreted by me: X-ray of the chest is negative for acute disease. - Medical Decision Making Differential diagnosis, including but not limited to: Hyperglycemic crisis, diabetic ketoacidosis, dehydration, hyperosmolar state Assessment and plan: 33-year-old gentleman with hyperglycemia, initial anion gap of 27, tachycardia, suspicious for diabetic ketoacidosis. The patient is afebrile, clinically sober, and in no acute distress, walking with a steady gait. His physical exam is otherwise unremarkable, and he is remarkably well- appearing. I have recommended admission to the hospital for IV insulin infusion, and correction of hyperglycemic metabolic derangement. Patient verbalizes understanding, and is amenable to this plan of care. Insulin infusion initiated, IV fluids initiated. Dr. Ordoñez accepts the patient to the medical service. Dr. Chirinos, of the critical care team, is in agreement with placement into the intensive care unit. The patient will be started on this facility's diabetic ketoacidosis protocol. Critical Care Time: Yes Critical care time in (mins) excluding proc time.: 35 Critical care attestation.: If time is entered above; I have spent that time in minutes in the direct care of this critically ill patient, excluding procedure time. ED Disposition Clinical Impression: DKA (diabetic ketoacidosis) Disposition: DC-09 OP ADMIT IP TO THIS HOSP Is pt being admited?: Yes Condition: Good Instructions: Diabetic Ketoacidosis (ED)
[2018-07-08] MEDS ORDERED: HumuLIN R 100 UNITS in NACL 0.9% 99 ML IV SCH (21:00)
[2018-07-08] MEDS ORDERED: SODIUM CHLORIDE FLUSH SYRINGE 10 ML IV NR (21:00)
[2018-07-08 21:37] LABS: BUN/Creatinine Ratio 18; Blood Urea Nitrogen 22 mg/dL (9-20); Calcium 8.9 mg/dL (8.4-10.2); Hemolysis Index 30
--- NOTE | 2018-07-08 22:46 | History and Physical Report ---
History of Present Illness Date of examination: 07/08/18 History of present illness: 33-year-old man with a history of diabetes comes emergency room complaining of generalized weakness, nausea vomiting and diarrhea. He's had a total of 2 episodes of diarrhea which is now resolved. He is noncompliant with diet Review of systems Constitutional: no weight loss, chills, fever Ears, eyes, nose, mouth and throat: no nasal congestion, no nasal discharge, no sinus pressure, no vision change, no red eye. Neck: No neck pain or rigidity. Cardiovascular: no palpitations, chest pain Respiratory: no cough, shortness of breath Gastrointestinal: no hematochezia, abdominal pain Genitourinary : no frequency , no hematuria Musculoskeletal: no joint swelling or muscle ache Integumentary: no rash, no pruritis Neurological: no parathesias, no focal weakness Endocrine: no cold or heat intolerance, no polyuria or polydipsia Hematologic/Lymphatic: no easy bruising, no easy bleeding, no gland swelling Allergic/Immunologic: no urticaria, no angioedema. PAST MEDICAL HISTORY: diabetes PAST SURGICAL HISTORY: None SOCIAL HISTORY: Denies alcohol, drugs, tobacco FAMILY HISTORY: Hypertension Medications and Allergies Allergies Allergy/AdvReac Type Severity Reaction Status Date / Time Penicillins Allergy Unknown Verified 06/25/16 07:10 Home Medications Medication Instructions Recorded Confirmed Last Taken Type Insulin Glargine [Lantus] 22 unit SUB-Q QHS #1 vial 04/07/17 Unknown Rx Insulin Lispro [HumaLOG VIAL] 7 units SQ AC #1 vial 04/07/17 Unknown Rx Lisinopril [Zestril TAB] 20 mg PO QDAY #30 tablet 04/07/17 Unknown Rx Lispro Insulin [Humalog] 0 unit SQ QACHS #1 vial 04/07/17 Unknown Rx Active Meds: Active Medications Dextrose (D50w (25gm) Syringe) 0 ml IV PRN PRN PRN Reason: Hypoglycemia Potassium Chloride/Dextrose/Sod Cl (D5w/0.45% Nacl/Kcl 20 Meq) 20 meq in 1,000 mls @ 125 mls/hr IV DIRECT DIANA Insulin Human Regular 100 (units/ Sodium Chloride) 100 mls @ 1 mls/hr IV TITR DIANA; Protocol Last Admin: 07/08/18 22:06 Dose: 6 units/hr, 6 mls/hr Documented by: Sodium Chloride (Sodium Chloride Flush Syringe 10 Ml) 10 ml IV PRN NR Stop: 07/11/18 20:59 Exam - Physical Exam Narrative exam: General Apperance: The patient lying in bed, breathing comfortable HEENT: Normocephalic, atraumatic. Pupils equally round and reactive to light, EOMI, no sclericterus or JVD or thyromegaly or nodule. , no carotid bruit, mucous membranes moist, no exudate or erythema Heart: S1-S2, regular is rhythm Lungs: Clear to auscultation bilaterally, breathing comfortable Abdomen: Positive bowel sounds, soft, nontender, nondistended, no organomegaly Extremities: No edema cyanosis clubbing Skin: no rash, nodule, warm and dry Neuro: cranial nerves 2-12 intact, speech is fluent, motor/sensory intact - Constitutional Vitals: Temp Pulse Resp BP Pulse Ox 98 F 112 H 15 127/82 97 07/08/18 17:41 07/08/18 20:45 07/08/18 20:45 07/08/18 20:45 07/08/18 20:45 Results - Labs CBC & Chem 7: 07/08/18 18:05 07/08/18 22:34 Labs: Abnormal lab results 07/08/18 07/08/18 07/08/18 Range/Units 17:40 18:05 18:05 RBC 5.57 H (3.65-5.03) M/mm3 Hgb 16.5 H (11.8-15.2) gm/dl Hct 47.2 H (35.5-45.6) % MCHC 35 H (32-34) % RDW 13.1 L (13.2-15.2) % Lymph # 1.0 L (1.2-5.4) K/mm3 Seg Neutrophils % 77.4 H (40.0-70.0) % Sodium 131 L (137-145) mmol/L Chloride 87.6 L (98-107) mmol/L Carbon Dioxide 21 L (22-30) mmol/L BUN 22 H (9-20) mg/dL Glucose 577 H* (75-100) mg/dL POC Glucose 428 H (70-105) Phosphorus (2.5-4.5) mg/dL Total Creatine Kinase (55-170) units/L 07/08/18 07/08/18 07/08/18 Range/Units 21:03 21:03 21:03 RBC (3.65-5.03) M/mm3 Hgb (11.8-15.2) gm/dl Hct (35.5-45.6) % MCHC (32-34) % RDW (13.2-15.2) % Lymph # (1.2-5.4) K/mm3 Seg Neutrophils % (40.0-70.0) % Sodium 135 L (137-145) mmol/L Chloride 93.2 L (98-107) mmol/L Carbon Dioxide (22-30) mmol/L BUN 22 H (9-20) mg/dL Glucose 422 H (75-100) mg/dL POC Glucose (70-105) Phosphorus 4.70 H (2.5-4.5) mg/dL Total Creatine Kinase 53 L (55-170) units/L 07/08/18 Range/Units 22:05 RBC (3.65-5.03) M/mm3 Hgb (11.8-15.2) gm/dl Hct (35.5-45.6) % MCHC (32-34) % RDW (13.2-15.2) % Lymph # (1.2-5.4) K/mm3 Seg Neutrophils % (40.0-70.0) % Sodium (137-145) mmol/L Chloride (98-107) mmol/L Carbon Dioxide (22-30) mmol/L BUN (9-20) mg/dL Glucose (75-100) mg/dL POC Glucose 344 H (70-105) Phosphorus (2.5-4.5) mg/dL Total Creatine Kinase (55-170) units/L - Imaging and Cardiology Chest x-ray: report reviewed Assessment and Plan Assessment DKA Hyponatremia Dehydration Plan Admit to medicine Start DKA protocol with insulin drip, IV fluid Monitor electrolytes DVT prophylaxis, consult critical care
[2018-07-08] MEDS ORDERED: MORPHINE IV PRN (22:57)
[2018-07-08] MEDS ORDERED: ZOFRAN IV PRN (22:57)
[2018-07-08] MEDS ORDERED: SODIUM CHLORIDE FLUSH SYRINGE 10 ML IV PRN (22:57)
[2018-07-08] MEDS ORDERED: NACL 0.9% 1000 ML 1,000 ML IV SCH (23:00)
[2018-07-08 23:10] LABS: Bilirubin,Urine NEG (Negative); Blood,Urine SM (Negative); Color,Urine Straw (Yellow); Mucus,Urine FEW /HPF; Protein,Urine <15 mg/dL mg/dL (Negative); Urobilinogen,Urine < 2.0 mg/dL (<2.0)
[2018-07-08 23:20] LABS: BUN/Creatinine Ratio 17; Blood Urea Nitrogen 20 mg/dL (9-20); Calcium 8.4 mg/dL (8.4-10.2); Hemolysis Index 31
--- NOTE | 2018-07-08 23:25 | XRay Report ---
PROCEDURE: XR CHEST 1V AP TECHNIQUE: Chest radiograph single view. HISTORY: weak dka COMPARISONS: None . FINDINGS: Heart: Normal. Mediastinum/Vessels: Normal. Lungs/Pleural space: Normal. Bony thorax: No acute osseous abnormality. Life support devices: None. IMPRESSION: No acute cardiopulmonary abnormality. This document is electronically signed by Shar Lamb MD., July 08 2018 11:22:49 PM ET
[2018-07-08 23:46] LABS: WBC,Urine < 1.0 /HPF (0.0-6.0)
[2018-07-08] MEDS: D5W/0.45% NACL/KCL 20 MEQ 20 MEQ/1,000 ML BAG IV SCH (23:59)
[2018-07-09] MEDS ORDERED: D5W/0.45% NACL/KCL 20 MEQ 20 MEQ/1,000 ML BAG IV ONE (00:02)
[2018-07-09] MEDS ORDERED: TYLENOL ONE (01:17)
[2018-07-09] MEDS: TYLENOL PO PRN ×2 (01:19→12:03)
[2018-07-09 01:47] LABS: BUN/Creatinine Ratio 14; Blood Urea Nitrogen 17 mg/dL (9-20); Calcium 8.3 mg/dL (8.4-10.2); Hemolysis Index 8
[2018-07-09 04:22] LABS: BUN/Creatinine Ratio 16; Blood Urea Nitrogen 16 mg/dL (9-20); Hemolysis Index 5
[2018-07-09 05:38] LABS: BUN/Creatinine Ratio 17; Blood Urea Nitrogen 15 mg/dL (9-20); Calcium 7.9 mg/dL (8.4-10.2); Hemolysis Index 15
[2018-07-09] MEDS: D5W/0.45% NACL/KCL 20 MEQ 20 MEQ/1,000 ML BAG IV SCH (08:04)
[2018-07-09] MEDS: HumaLOG SUB-Q SCH ×5 (11:30→22:27)
[2018-07-09 14:04] LABS: BUN/Creatinine Ratio 13; Blood Urea Nitrogen 13 mg/dL (9-20); Hemolysis Index 11
[2018-07-09] MEDS: ZESTRIL PO SCH (15:20)
[2018-07-09] MEDS: SODIUM CHLORIDE FLUSH SYRINGE 10 ML IV SCH ×2 (15:21→22:28)
[2018-07-09] MEDS: LOVENOX SUB-Q SCH (15:23)
--- NOTE | 2018-07-09 17:33 | Progress Note ---
Assessment and Plan Assessment and plan: 33-year-old male who presents with high glucose Past medical history; hypertension, diabetes Diagnoses Hyperosmolar hyperglycemic nonketotic state Uncontrolled diabetes mellitus type 1 Plan Patient has been on insulin drip, transitioned to subcutaneous insulin, IV fluids, replete electrolytes as needed -The patient stated that he had some confusion about how to use his insulin sliding scale -Plan to provide proper education prior to discharge tomorrow DVT prophylaxis with Lovenox History Interval history: Review of systems Constitutional: No fevers, no malaise, no joint pains CVS: No chest pain, no orthopnea, no dyspnea on exertion, no pedal edema GI: No abdominal pain, no diarrhea, no vomiting, no constipation Respiratory: No shortness of breath, no wheezing, no coughing Hospitalist Physical - Physical exam Narrative exam: General.: Appears well, no distress, nontoxic HEENT: Moist mucous membranes, extraocular muscles intact, no lymphadenopathy Neck: supple Cardiac: S1-S2 heard Lungs: clear to auscultation bilaterally Abdomen: soft , nontender, nondistended, bowel sounds positive Extremities: no edema clubbing or cyanosis Skin: no rash or lesions Neurologic: no gross focal deficits Psych: calm, and cooperative - Constitutional Vitals: Temp Pulse Resp BP Pulse Ox 98.3 F 91 H 20 138/90 99 07/09/18 12:02 07/09/18 15:20 07/09/18 12:02 07/09/18 15:20 07/09/18 12:02 Results - Labs CBC & Chem 7: 07/08/18 18:05 07/09/18 13:09 Labs: Laboratory Last Values WBC 6.8 K/mm3 (4.5-11.0) 07/08/18 18:05 RBC 5.57 M/mm3 (3.65-5.03) H 07/08/18 18:05 Hgb 16.5 gm/dl (11.8-15.2) H 07/08/18 18:05 Hct 47.2 % (35.5-45.6) H 07/08/18 18:05 MCV 85 fl (84-94) 07/08/18 18:05 MCH 30 pg (28-32) 07/08/18 18:05 MCHC 35 % (32-34) H 07/08/18 18:05 RDW 13.1 % (13.2-15.2) L 07/08/18 18:05 Plt Count 241 K/mm3 (140-440) 07/08/18 18:05 Lymph % (Auto) 14.5 % (13.4-35.0) 07/08/18 18:05 [place] % (Auto) 6.9 % (0.0-7.3) 07/08/18 18:05 Eos % (Auto) 0.3 % (0.0-4.3) 07/08/18 18:05 Baso % (Auto) 0.9 % (0.0-1.8) 07/08/18 18:05 Lymph # 1.0 K/mm3 (1.2-5.4) L 07/08/18 18:05 [place] # 0.5 K/mm3 (0.0-0.8) 07/08/18 18:05 Eos # 0.0 K/mm3 (0.0-0.4) 07/08/18 18:05 Baso # 0.1 K/mm3 (0.0-0.1) 07/08/18 18:05 Seg Neutrophils % 77.4 % (40.0-70.0) H 07/08/18 18:05 Seg Neutrophils # 5.3 K/mm3 (1.8-7.7) 07/08/18 18:05 VBG pH 7.361 (7.320-7.420) 07/08/18 21:03 Sodium 131 mmol/L (137-145) L 07/09/18 13:09 Potassium 3.6 mmol/L (3.6-5.0) 07/09/18 13:09 Chloride 91.5 mmol/L (98-107) L 07/09/18 13:09 Carbon Dioxide 25 mmol/L (22-30) 07/09/18 13:09 Anion Gap 18 mmol/L 07/09/18 13:09 BUN 13 mg/dL (9-20) 07/09/18 13:09 Creatinine 1.0 mg/dL (0.8-1.5) 07/09/18 13:09 Estimated GFR > 60 ml/min 07/09/18 13:09 BUN/Creatinine Ratio 13 % 07/09/18 13:09 Glucose 339 mg/dL (75-100) H 07/09/18 13:09 POC Glucose 128 (70-105) H 07/09/18 09:14 Hemoglobin A1c 11.1 % (4-6) H 07/08/18 23:15 Calcium 8.0 mg/dL (8.4-10.2) L 07/09/18 13:09 Phosphorus 4.70 mg/dL (2.5-4.5) H 07/08/18 21:03 Magnesium 1.60 mg/dL (1.7-2.3) L 07/09/18 04:47 Total Creatine Kinase 53 units/L (55-170) L 07/08/18 21:03 Urine Color Straw (Yellow) 07/08/18 21:50 Urine Turbidity Clear (Clear) 07/08/18 21:50 Urine pH 6.0 (5.0-7.0) 07/08/18 21:50 Ur Specific [place] 1.035 (1.003-1.030) H 07/08/18 21:50 Urine Protein <15 mg/dl mg/dL (Negative) 07/08/18 21:50 Urine Glucose (UA) >=500 mg/dL (Negative) 07/08/18 21:50 Urine Ketones 20 mg/dL (Negative) 07/08/18 21:50 Urine Blood Sm (Negative) 07/08/18 21:50 Urine Nitrite Neg (Negative) 07/08/18 21:50 Urine Bilirubin Neg (Negative) 07/08/18 21:50 Urine Urobilinogen < 2.0 mg/dL (<2.0) 07/08/18 21:50 Ur Leukocyte Esterase Neg (Negative) 07/08/18 21:50 Urine WBC (Auto) < 1.0 /HPF (0.0-6.0) 07/08/18 21:50 Urine RBC (Auto) 1.0 /HPF (0.0-6.0) 07/08/18 21:50 U Epithel Cells (Auto) < 1.0 /HPF (0-13.0) 07/08/18 21:50 Urine Mucus Few /HPF 07/08/18 21:50 Active Medications - Current Medications Current Medications: Generic Name Dose Route Start Last Admin Trade Name Freq PRN Reason Stop Dose Admin Acetaminophen 650 mg 07/08/18 22:57 07/09/18 12:03 Tylenol PO 650 mg Q4H PRN Administration Pain MILD(1-3)/Fever >100.5/ABDI Dextrose 0 ml 07/08/18 20:32 D50w (25gm) Syringe IV PRN PRN Hypoglycemia Enoxaparin Sodium 40 mg 07/09/18 10:00 07/09/18 15:23 Lovenox SUB-Q Not Given QDAY [facility] Potassium Chloride/Sodium Chloride 20 meq in 1,000 mls @ 125 mls/hr 07/09/18 12:00 Ns/Kcl 20meq IV DIRECT [facility] Insulin Glargine 22 units 07/09/18 22:00 Lantus SUB-Q QHS [facility] Insulin Human Lispro 7 unit 07/09/18 11:30 07/09/18 11:30 Humalog SUB-Q Not Given AC [facility] Insulin Human Lispro 0 unit 07/09/18 11:30 07/09/18 11:30 Humalog SUB-Q Not Given ACHS [facility] Protocol Lisinopril 20 mg 07/09/18 10:00 07/09/18 15:20 Zestril PO 20 mg QDAY [facility] Administration Morphine Sulfate 2 mg 07/08/18 22:57 Morphine IV Q4H PRN Pain, Moderate (4-6) Ondansetron HCl 4 mg 07/08/18 22:57 Zofran IV Q4H PRN Nausea And Vomiting Sodium Chloride 10 ml 07/09/18 10:00 07/09/18 15:21 Sodium Chloride Flush Syringe 10 Ml IV 10 ml BID DIANA Administration Sodium Chloride 10 ml 07/08/18 22:57 Sodium Chloride Flush Syringe 10 Ml IV PRN PRN LINE FLUSH
[2018-07-09] MEDS: NS/KCL 20MEQ 20 MEQ/1,000 ML BAG IV SCH (18:39)
[2018-07-09] MEDS ORDERED: LANTUS SUB-Q SCH (22:00)
[2018-07-10 00:01] LABS: BUN/Creatinine Ratio 16; Blood Urea Nitrogen 16 mg/dL (9-20); Hemolysis Index 16
[2018-07-10] MEDS: NS/KCL 20MEQ 20 MEQ/1,000 ML BAG IV SCH (02:04)
[2018-07-10 05:44] VITALS: BP 136/92
[2018-07-10] MEDS: HumaLOG SUB-Q SCH ×4 (09:12→13:17)
[2018-07-10] MEDS: SODIUM CHLORIDE FLUSH SYRINGE 10 ML IV SCH (09:13)
[2018-07-10] MEDS: ZESTRIL PO SCH (09:13)
[2018-07-10] MEDS: LOVENOX SUB-Q SCH (09:14)
--- NOTE | 2018-07-10 10:29 | Progress Note ---
Hospitalist Physical - Constitutional Vitals: Temp Pulse Resp BP Pulse Ox 97.7 F 92 H 20 136/92 97 07/10/18 04:27 07/10/18 04:27 07/10/18 04:27 07/10/18 04:27 07/10/18 04:27 Results - Labs CBC & Chem 7: 07/08/18 18:05 07/09/18 21:07 Labs: Laboratory Last Values WBC 6.8 K/mm3 (4.5-11.0) 07/08/18 18:05 RBC 5.57 M/mm3 (3.65-5.03) H 07/08/18 18:05 Hgb 16.5 gm/dl (11.8-15.2) H 07/08/18 18:05 Hct 47.2 % (35.5-45.6) H 07/08/18 18:05 MCV 85 fl (84-94) 07/08/18 18:05 MCH 30 pg (28-32) 07/08/18 18:05 MCHC 35 % (32-34) H 07/08/18 18:05 RDW 13.1 % (13.2-15.2) L 07/08/18 18:05 Plt Count 241 K/mm3 (140-440) 07/08/18 18:05 Lymph % (Auto) 14.5 % (13.4-35.0) 07/08/18 18:05 [place] % (Auto) 6.9 % (0.0-7.3) 07/08/18 18:05 Eos % (Auto) 0.3 % (0.0-4.3) 07/08/18 18:05 Baso % (Auto) 0.9 % (0.0-1.8) 07/08/18 18:05 Lymph # 1.0 K/mm3 (1.2-5.4) L 07/08/18 18:05 [place] # 0.5 K/mm3 (0.0-0.8) 07/08/18 18:05 Eos # 0.0 K/mm3 (0.0-0.4) 07/08/18 18:05 Baso # 0.1 K/mm3 (0.0-0.1) 07/08/18 18:05 Seg Neutrophils % 77.4 % (40.0-70.0) H 07/08/18 18:05 Seg Neutrophils # 5.3 K/mm3 (1.8-7.7) 07/08/18 18:05 VBG pH 7.361 (7.320-7.420) 07/08/18 21:03 Sodium 130 mmol/L (137-145) L 07/09/18 21:07 Potassium 3.8 mmol/L (3.6-5.0) 07/09/18 21:07 Chloride 91.0 mmol/L (98-107) L 07/09/18 21:07 Carbon Dioxide 26 mmol/L (22-30) 07/09/18 21:07 Anion Gap 17 mmol/L 07/09/18 21:07 BUN 16 mg/dL (9-20) 07/09/18 21:07 Creatinine 1.0 mg/dL (0.8-1.5) 07/09/18 21:07 Estimated GFR > 60 ml/min 07/09/18 21:07 BUN/Creatinine Ratio 16 % 07/09/18 21:07 Glucose 327 mg/dL (75-100) H 07/09/18 21:07 POC Glucose 226 (70-105) H 07/10/18 08:17 Hemoglobin A1c 11.1 % (4-6) H 07/08/18 23:15 Calcium 8.0 mg/dL (8.4-10.2) L 07/09/18 21:07 Phosphorus 4.70 mg/dL (2.5-4.5) H 07/08/18 21:03 Magnesium 1.60 mg/dL (1.7-2.3) L 07/09/18 04:47 Total Creatine Kinase 53 units/L (55-170) L 07/08/18 21:03 Urine Color Straw (Yellow) 07/08/18 21:50 Urine Turbidity Clear (Clear) 07/08/18 21:50 Urine pH 6.0 (5.0-7.0) 07/08/18 21:50 Ur Specific [place] 1.035 (1.003-1.030) H 07/08/18 21:50 Urine Protein <15 mg/dl mg/dL (Negative) 07/08/18 21:50 Urine Glucose (UA) >=500 mg/dL (Negative) 07/08/18 21:50 Urine Ketones 20 mg/dL (Negative) 07/08/18 21:50 Urine Blood Sm (Negative) 07/08/18 21:50 Urine Nitrite Neg (Negative) 07/08/18 21:50 Urine Bilirubin Neg (Negative) 07/08/18 21:50 Urine Urobilinogen < 2.0 mg/dL (<2.0) 07/08/18 21:50 Ur Leukocyte Esterase Neg (Negative) 07/08/18 21:50 Urine WBC (Auto) < 1.0 /HPF (0.0-6.0) 07/08/18 21:50 Urine RBC (Auto) 1.0 /HPF (0.0-6.0) 07/08/18 21:50 U Epithel Cells (Auto) < 1.0 /HPF (0-13.0) 07/08/18 21:50 Urine Mucus Few /HPF 07/08/18 21:50 Active Medications - Current Medications Current Medications: Generic Name Dose Route Start Last Admin Trade Name Freq PRN Reason Stop Dose Admin Acetaminophen 650 mg 07/08/18 22:57 07/09/18 12:03 Tylenol PO 650 mg Q4H PRN Administration Pain MILD(1-3)/Fever >100.5/ABDI Dextrose 0 ml 07/08/18 20:32 D50w (25gm) Syringe IV PRN PRN Hypoglycemia Enoxaparin Sodium 40 mg 07/09/18 10:00 07/10/18 09:14 Lovenox SUB-Q 40 mg QDAY DIANA Administration Potassium Chloride/Sodium Chloride 20 meq in 1,000 mls @ 125 mls/hr 07/09/18 12:00 07/10/18 02:04 Ns/Kcl 20meq IV 125 mls/hr DIRECT DIANA Administration Insulin Glargine 22 units 07/09/18 22:00 07/09/18 22:27 Lantus SUB-Q 22 units QHS DIANA Administration Insulin Human Lispro 7 unit 07/09/18 11:30 07/10/18 09:12 Humalog SUB-Q 7 unit AC DIANA Administration Insulin Human Lispro 0 unit 07/09/18 11:30 07/10/18 09:12 Humalog SUB-Q 2 unit ACHS DIANA Administration Protocol Lisinopril 20 mg 07/09/18 10:00 07/10/18 09:13 Zestril PO 20 mg QDAY DIANA Administration Morphine Sulfate 2 mg 07/08/18 22:57 Morphine IV Q4H PRN Pain, Moderate (4-6) Ondansetron HCl 4 mg 07/08/18 22:57 Zofran IV Q4H PRN Nausea And Vomiting Sodium Chloride 10 ml 07/09/18 10:00 07/10/18 09:13 Sodium Chloride Flush Syringe 10 Ml IV 10 ml BID DIANA Administration Sodium Chloride 10 ml 07/08/18 22:57 Sodium Chloride Flush Syringe 10 Ml IV PRN PRN LINE FLUSH
--- NOTE | 2018-07-10 11:29 | Discharge Summary ---
Providers - Providers Date of Admission: 07/08/18 22:56 Attending physician: FABI CARPENTER MD Primary care physician: RENEE SPENCER MD Hospitalization Condition: Good Hospital course: 33-year-old male who presents with high glucose Past medical history; hypertension, diabetes Diagnoses Hyperosmolar hyperglycemic nonketotic state Uncontrolled diabetes mellitus type 1 Hospital course Patient has been on insulin drip, transitioned to subcutaneous insulin, IV fluids, electrolytes were repleted -The patient stated that he had some confusion about how to use his insulin sliding scale, he was provided information for diabetic education class which he can attend later today Disposition: DC-01 TO HOME OR SELFCARE Time spent for discharge: 33 mins Core Measure Documentation - Palliative Care Palliative Care/ Comfort Measures: Not Applicable - Core Measures Any of the following diagnoses?: none Exam - Constitutional Vitals: Temp Pulse Resp BP Pulse Ox 97.7 F 92 H 20 136/92 97 07/10/18 04:27 07/10/18 04:27 07/10/18 04:27 07/10/18 04:27 07/10/18 04:27 General appearance: Present: no acute distress, well-nourished - EENT Eyes: Present: PERRL ENT: hearing intact, clear oral mucosa - Neck Neck: Present: supple, normal ROM - Respiratory Respiratory effort: normal Respiratory: bilateral: CTA - Cardiovascular Heart Sounds: Present: S1 & S2. Absent: rub, click - Extremities Extremities: pulses symmetrical, No edema Peripheral Pulses: within normal limits - Abdominal General gastrointestinal: Present: soft, non-tender, non-distended, normal bowel sounds Male genitourinary: Present: normal - Integumentary Integumentary: Present: clear, warm, dry - Musculoskeletal Musculoskeletal: gait normal, strength equal bilaterally - Psychiatric Psychiatric: appropriate mood/affect, intact judgment & insight - Neurologic Neurologic: CNII-XII intact, moves all extremities Plan Follow up with: PRIMARY CARE, [Primary Care Provider] - 3-5 Days Prescriptions: Insulin Glargine [Lantus VIAL] 25 unit SUB-Q QHS #1 vial Insulin Lispro [HumaLOG VIAL] 7 units SQ AC #1 vial Insulin Lispro [HumaLOG VIAL] 0 units SQ AC #1 vial
== END 2018-07-10 15:30 | disposition home or self-care (01) | DRG 638 ==
LOC: ED 17:18 → CC1 22:56 → 3A 07-09 10:00
PROVIDERS: ADMIT Internal Medicine; ATTEND Internal Medicine
DX: E10.10 Type 1 diabetes mellitus with ketoacidosis without coma (principal); E87.1 Hypo-osmolality and hyponatremia; I10 Essential (primary) hypertension; E86.0 Dehydration; Z79.4 Long term (current) use of insulin; Z88.0 Allergy status to penicillin; Z82.49 Family history of ischemic heart disease and other diseases of the circulatory system
CPT/HCPCS: 36415; 71045; 80048; 81001; 82550; 82805; 82962; 83036; 83735; 84100; 85025; 93005; 93010; 96365; 96366; 96367; G0378; J1650; J1815; J7030

== ENCOUNTER 2019-02-12 17:25 | Emergency (ER) | payer SELFPAY ==
--- NOTE | 2019-02-12 17:42 | Emergency Department Report ---
Blank Doc - Documentation Documentation: 33-year-old male that presents with bilateral feet pain and has missed his ins ulin today. This initial assessment/diagnostic orders/clinical plan/treatment(s) is/are subject to change based on patient's health status, clinical progression and re- assessment by fellow clinical providers in the ED. Further treatment and workup at subsequent clinical providers discretion. Patient/guardians urged not to elope from the ED as their condition may be serious if not clinically assessed and managed. Initial orders include: 1- Patient sent to [facility] for further evaluation and treatment 2- labs 3- UA
[2019-02-12 18:44] LABS: Hematocrit 50.7 % (35.5-45.6); Hemoglobin 17.3 gm/dl (11.8-15.2); Lymphocytes % (Auto) 50.3 % (13.4-35.0); Mean Corpuscular HGB Conc 34 % (32-34); Mean Corpuscular Volume 85 fl (84-94); Mean Platelet Volume 8.6 fl (6-12); Monocytes % (Auto) 6.8 % (0.0-7.3); Platelet Count 253 K/mm3 (140-440); Red Blood Count 5.97 M/mm3 (3.65-5.03)
[2019-02-12 18:45] LABS: Basophils # (Auto) 0.1 K/mm3 (0.0-0.1); Basophils % (Auto) 1.1 % (0.0-1.8); Eosinophils % (Auto) 0.9 % (0.0-4.3); Lymphocytes # (Auto) 2.6 K/mm3 (1.2-5.4); Monocytes # (Auto) 0.4 K/mm3 (0.0-0.8)
[2019-02-12 18:57] LABS: BUN/Creatinine Ratio 14; Blood Urea Nitrogen 14 mg/dL (9-20)
[2019-02-12 18:58] LABS: Calcium 9.8 mg/dL (8.4-10.2)
[2019-02-12] MEDS ORDERED: cloNIDine 0.1 MG TAB PO ONE (19:17)
[2019-02-12] MEDS ORDERED: INSULIN REGULAR, HUMAN 100 UNITS/1 ML SUB-Q ONE (19:17)
--- NOTE | 2019-02-12 19:21 | Emergency Department Report ---
ED General Adult HPI - General Chief complaint: Extremity Injury, Lower Stated complaint: DIABETIC/FEET PAIN Time Seen by Provider: 02/12/19 17:40 Source: patient Mode of arrival: Ambulatory Limitations: No Limitations - History of Present Illness Initial comments: Patient is 33 years old male with history of diabetes and hypertension. Patient is noncompliant with his medication. Patient presented to the ER complaining of bilateral lower extremity pain. Patient stated that pain is mainly at night. Patient denied any recent injury. Patient also denied any fever, chills, chest pain, abdominal pain, weakness. - Related Data Previous Rx's Medication Instructions Recorded Last Taken Type Lisinopril [Zestril TAB] 20 mg PO QDAY #30 tablet 04/07/17 07/07/18 Rx Insulin Glargine [Lantus VIAL] 25 unit SUB-Q QHS #1 vial 07/10/18 Unknown Rx Insulin Lispro [HumaLOG VIAL] 0 units SQ AC #1 vial 07/10/18 Unknown Rx Insulin Lispro [HumaLOG VIAL] 7 units SQ AC #1 vial 07/10/18 Unknown Rx Insulin Glargine [Lantus VIAL] 40 units SUB-Q QHS #5 vial 02/12/19 Unknown Rx Insulin Lispro 10 unit SQ AC #5 vial 02/12/19 Unknown Rx Allergies Allergy/AdvReac Type Severity Reaction Status Date / Time Penicillins Allergy Unknown Verified 06/25/16 07:10 ED Review of Systems ROS: Stated complaint: DIABETIC/FEET PAIN Other details as noted in HPI Comment: All other systems reviewed and negative Constitutional: denies: chills, fever Respiratory: denies: cough, shortness of breath Cardiovascular: denies: chest pain, palpitations Gastrointestinal: denies: abdominal pain, nausea, vomiting Musculoskeletal: myalgia ED Past Medical Hx - Past Medical History Hx Hypertension: Yes Hx Congestive Heart Failure: No Hx Diabetes: Yes Hx Asthma: No Hx COPD: No - Surgical History Additional Surgical History: "chest surgery" - Social History Smoking Status: Never Smoker Substance Use Type: None - Medications Home Medications: Home Medications Medication Instructions Recorded Confirmed Last Taken Type Lisinopril [Zestril TAB] 20 mg PO QDAY #30 tablet 04/07/17 07/09/18 07/07/18 Rx Insulin Glargine [Lantus VIAL] 25 unit SUB-Q QHS #1 vial 07/10/18 Unknown Rx Insulin Lispro [HumaLOG VIAL] 0 units SQ AC #1 vial 07/10/18 Unknown Rx Insulin Lispro [HumaLOG VIAL] 7 units SQ AC #1 vial 07/10/18 Unknown Rx Insulin Glargine [Lantus VIAL] 40 units SUB-Q QHS #5 vial 02/12/19 Unknown Rx Insulin Lispro 10 unit SQ AC #5 vial 02/12/19 Unknown Rx ED Physical Exam - General Limitations: No Limitations General appearance: alert, in no apparent distress - Head Head exam: Present: atraumatic, normocephalic, normal inspection - ENT ENT exam: Present: normal exam, normal orophraynx, mucous membranes moist - Neck Neck exam: Present: normal inspection, full ROM. Absent: tenderness, meningismus, lymphadenopathy, thyromegaly - Respiratory Respiratory exam: Present: normal lung sounds bilaterally - Cardiovascular Cardiovascular Exam: Present: regular rate, normal rhythm, normal heart sounds - GI/Abdominal GI/Abdominal exam: Present: soft, normal bowel sounds. Absent: distended, tenderness, guarding, rebound, rigid, organomegaly, mass, bruit, pulsatile mass, hernia - Extremities Exam Extremities exam: Present: normal inspection, full ROM, normal capillary refill. Absent: tenderness, pedal edema, calf tenderness - Back Exam Back exam: Present: normal inspection, full ROM. Absent: tenderness, CVA tenderness (L), muscle spasm, paraspinal tenderness - Neurological Exam Neurological exam: Present: alert, oriented X3, CN II-XII intact, normal gait, reflexes normal. Absent: motor sensory deficit - Psychiatric Psychiatric exam: Present: normal mood - Skin Skin exam: Present: warm, intact, normal color ED Course Vital Signs 02/12/19 17:29 Temperature 98.1 F Pulse Rate 67 Respiratory 18 Rate Blood Pressure 165/118 O2 Sat by Pulse 100 Oximetry ED Medical Decision Making - Lab Data Result diagrams: 02/12/19 18:02 02/12/19 18:02 - Medical Decision Making Patient is 33 years old male with history of diabetes and hypertension. Patient is noncompliant with his medication. Patient presented to the ER complaining of bilateral lower extremity pain. Patient stated that pain is mainly at night. Patient denied any recent injury. Patient also denied any fever, chills, chest pain, abdominal pain, weakness. Patient received 10 units of insulin subcutaneous and clonidine 0.1 mg. Labs reviewed and showed hyperglycemia. No evidence of DKA. Patient stated that he feeling much better. Patient denied any chest pain, shortness of breath, headache, weakness. Patient given a prescription for Lantus, Humalog and Neurontin and advised to follow-up with his primary care physician in the next 2-3 days and to return to the ER if symptoms are not improved. Critical care attestation.: If time is entered above; I have spent that time in minutes in the direct care of this critically ill patient, excluding procedure time. ED Disposition Clinical Impression: Hyperglycemia due to type 2 diabetes mellitus, Malignant hypertension, Diabetic neuropathy, Bilateral leg pain Disposition: TO HOME OR SELFCARE Is pt being admited?: No Condition: Stable Instructions: Diabetes Mellitus Type 2 in Adults (ED), Diabetic Neuropathy (ED), Hypertension (ED) Prescriptions: Insulin Glargine [Lantus VIAL] 40 units SUB-Q QHS #5 vial Insulin Lispro 10 unit SQ AC #5 vial Referrals: [facility] [Provider Group] - 3-5 Days
[2019-02-12 19:49] LABS: Color,Urine Straw (Yellow)
[2019-02-12 19:50] LABS: Bilirubin,Urine Negative (Negative); Blood,Urine Negative (Negative); Protein,Urine <15 mg/dL mg/dL (Negative)
[2019-02-12 19:51] LABS: Hemolysis Index 24
[2019-02-12 19:51] LABS: Urobilinogen,Urine < 2.0 mg/dL (<2.0)
[2019-02-12] MEDS ORDERED: ONDANSETRON 4 MG ODT TAB PO ONE (20:36)
[2019-02-12] MEDS ORDERED: traMADol 50 MG TAB PO ONE (20:36)
[2019-02-13 03:36] VITALS: BP 164/105
== END 2019-02-12 23:00 | disposition home or self-care (01) ==
LOC: ED 17:25
DX: E11.40 Type 2 diabetes mellitus with diabetic neuropathy, unspecified (principal); E11.65 Type 2 diabetes mellitus with hyperglycemia; I10 Essential (primary) hypertension; M79.605 Pain in left leg; M79.604 Pain in right leg
CPT/HCPCS: 36415; 80048; 81001; 82805; 82962; 85025; 96372; J1815; Q0162

== ENCOUNTER 2019-03-07 04:51 | Emergency (ER) | payer SELFPAY ==
--- NOTE | 2019-03-07 09:26 | Emergency Department Report ---
ED Extremity Problem HPI - General Chief complaint: Extremity Injury, Lower Stated complaint: TYPE 1 DIABETES,FEET HURT Time Seen by Provider: 03/07/19 09:25 Source: patient Mode of arrival: Ambulatory Limitations: No Limitations - Related Data Previous Rx's Medication Instructions Recorded Last Taken Type Lisinopril [Zestril TAB] 20 mg PO QDAY #30 tablet 04/07/17 07/07/18 Rx Insulin Glargine [Lantus VIAL] 25 unit SUB-Q QHS #1 vial 07/10/18 Unknown Rx Insulin Lispro [HumaLOG VIAL] 0 units SQ AC #1 vial 07/10/18 Unknown Rx Insulin Lispro [HumaLOG VIAL] 7 units SQ AC #1 vial 07/10/18 Unknown Rx Gabapentin 100 mg PO Q8HR #90 capsule 02/12/19 Unknown Rx Insulin Glargine [Lantus VIAL] 40 units SUB-Q QHS #5 vial 02/12/19 Unknown Rx Insulin Lispro 10 unit SQ AC #5 vial 02/12/19 Unknown Rx Allergies Allergy/AdvReac Type Severity Reaction Status Date / Time Penicillins Allergy Unknown Verified 06/25/16 07:10 ED Review of Systems ROS: Stated complaint: TYPE 1 DIABETES,FEET HURT Other details as noted in HPI ED Past Medical Hx - Past Medical History Previous Medical History?: Yes Hx Hypertension: Yes Hx Congestive Heart Failure: No Hx Diabetes: Yes Hx Asthma: No Hx COPD: No - Surgical History Past Surgical History?: Yes Additional Surgical History: "chest surgery" - Social History Smoking Status: Never Smoker Substance Use Type: None - Medications Home Medications: Home Medications Medication Instructions Recorded Confirmed Last Taken Type Lisinopril [Zestril TAB] 20 mg PO QDAY #30 tablet 04/07/17 07/09/18 07/07/18 Rx Insulin Glargine [Lantus VIAL] 25 unit SUB-Q QHS #1 vial 07/10/18 Unknown Rx Insulin Lispro [HumaLOG VIAL] 0 units SQ AC #1 vial 07/10/18 Unknown Rx Insulin Lispro [HumaLOG VIAL] 7 units SQ AC #1 vial 07/10/18 Unknown Rx Gabapentin 100 mg PO Q8HR #90 capsule 02/12/19 Unknown Rx Insulin Glargine [Lantus VIAL] 40 units SUB-Q QHS #5 vial 02/12/19 Unknown Rx Insulin Lispro 10 unit SQ AC #5 vial 02/12/19 Unknown Rx ED Physical Exam - General Limitations: No Limitations ED Course Vital Signs 03/07/19 04:56 Temperature 98.3 F Pulse Rate 116 H Respiratory 20 Rate Blood Pressure 167/125 O2 Sat by Pulse 97 Oximetry Critical care attestation.: If time is entered above; I have spent that time in minutes in the direct care of this critically ill patient, excluding procedure time. ED Disposition Condition: Stable Referrals: PRIMARY CARE [Primary Care Provider] - 3-5 Days
--- NOTE | 2019-03-07 10:06 | Emergency Department Report ---
Chief Complaint: Extremity Injury, Lower Stated Complaint: TYPE 1 DIABETES,FEET HURT Time Seen by Provider: 03/07/19 09:25 - HPI History of Present Illness: 33-year-old -[place] male with type 1 diabetes comes in for right foot neuropathy pain times months. Patient states he was on gabapentin and last prescription was given here by the Hospital. Patient has not followed up with his primary care provider. - Exam Vital Signs: Vital Signs 03/07/19 04:56 Temperature 98.3 F Pulse Rate 116 H Respiratory 20 Rate Blood Pressure 167/125 O2 Sat by Pulse 97 Oximetry MSE screening note: Focused history and physical exam performed. Due to findings the following was ordered: 33-year-old -[place] male with type 1 diabetes comes in for right foot neuropathy pain times months. Patient states he was on gabapentin and last prescription was given here by the Hospital. Patient has not followed up with his primary care provider. Course the patient that this is her chronic neuropathy he needs to follow up with his primary care provider. Patient to be MSE to his primary care provider. ED Disposition for MSE Clinical Impression: Diabetic neuropathy, type I diabetes mellitus Disposition: Z-07 MED SCREENING EXAM-LEFT Is pt being admited?: No Does the pt Need Aspirin: No Condition: Stable Instructions: Diabetes Mellitus Type 2 in Adults (ED) Additional Instructions: Follow-up with a primary care provider for your chronic neuropathy. Referrals: PRIMARY MD TJ [Primary Care Provider] - 3-5 Days [facility] [Outside] - 3-[address] [facility] [place] [Outside] - 3-5 Days
[2019-03-07 10:17] VITALS: BP 151/108
[2019-03-07] MEDS ORDERED: ONDANSETRON 4 MG/2 ML INJ IV ONE (10:39)
[2019-03-07] MEDS ORDERED: SODIUM CHLORIDE 0.9% 1000 ML 1,000 ML IV ONE (10:39)
[2019-03-07] MEDS ORDERED: MORPHINE 4 MG/1 ML INJ IV ONE (10:39)
== END 2019-03-07 12:49 | disposition left against medical advice (07) ==
LOC: ED 04:51
DX: E10.40 Type 1 diabetes mellitus with diabetic neuropathy, unspecified (principal); Z79.84 Long term (current) use of oral hypoglycemic drugs
CPT/HCPCS: 82962; 96361; 96374; 99283; J2270; J2405; J7030

== ENCOUNTER 2019-05-10 19:29 | Emergency (ER) | payer SELFPAY ==
--- NOTE | 2019-05-10 19:43 | Emergency Department Report ---
Blank Doc - Documentation Documentation: 34-year-old male that presents with n/v, generlized weakness, and blurry visio n., Has not taken insluin x2-3 days. This initial assessment/diagnostic orders/clinical plan/treatment(s) is/are subject to change based on patient's health status, clinical progression and re-assessment by fellow clinical providers in the ED. Further treatment and workup at subsequent clinical providers discretion. Patient/guardians urged not to elope from the ED as their condition may be serious if not clinically assessed and managed. Initial orders include: 1- Patient sent to MAIN ED for further evaluation and treatment 2- labs 3- UA
[2019-05-10 20:27] LABS: Basophils % (Auto) 0.9 % (0.0-1.8); Eosinophils # (Auto) 0.1 K/mm3 (0.0-0.4); Eosinophils % (Auto) 1.8 % (0.0-4.3); Hematocrit 43.6 % (35.5-45.6); Lymphocytes # (Auto) 1.9 K/mm3 (1.2-5.4); Lymphocytes % (Auto) 36.9 % (13.4-35.0); Mean Corpuscular HGB Conc 34 % (32-34); Mean Corpuscular Volume 89 fl (84-94); Monocytes # (Auto) 0.5 K/mm3 (0.0-0.8); Monocytes % (Auto) 10.2 % (0.0-7.3); Platelet Count 240 K/mm3 (140-440); Red Blood Count 4.91 M/mm3 (3.65-5.03); Red Cell Distribution Width 13.4 % (13.2-15.2)
[2019-05-10 20:44] LABS: Bilirubin,Urine NEG (Negative); Blood,Urine NEG (Negative); Color,Urine Yellow (Yellow); Mucus,Urine FEW /HPF; Protein,Urine <15 mg/dL mg/dL (Negative)
[2019-05-10 20:54] LABS: Alanine Aminotransferase 18 units/L (7-56); BUN/Creatinine Ratio 13; Blood Urea Nitrogen 15 mg/dL (9-20); Calcium 8.9 mg/dL (8.4-10.2); Hemolysis Index 39
[2019-05-10] MEDS ORDERED: TETRACAINE 0.5% OPHTH SOLN 4ML ONE (21:21)
[2019-05-10] MEDS ORDERED: FLUORESCEIN 1 MG STRIP OP ONE ×2 (21:22→22:25)
[2019-05-10] MEDS ORDERED: LORazepam 2 MG/ML VIAL IV ONE ×2 (22:10→23:09)
[2019-05-10] MEDS ORDERED: LORazepam 2 MG/ML VIAL ONE ×2 (22:13→23:09)
[2019-05-10] MEDS ORDERED: diphenhydrAMINE 50 MG/ML VIAL IV ONE (22:25)
[2019-05-10] MEDS ORDERED: METOCLOPRAMIDE 10 MG/2 ML INJ IV ONE (22:25)
[2019-05-10] MEDS ORDERED: TETRACAINE 0.5% OPHTH SOLN 4ML OU STA (22:25)
[2019-05-10] MEDS ORDERED: SODIUM CHLORIDE 0.9% 1000 ML 2,000 ML IV ONE (22:25)
[2019-05-10] MEDS ORDERED: ACETAMINOPHEN 500 MG TAB PO ONE (22:27)
[2019-05-10] MEDS ORDERED: INSULIN REGULAR, HUMAN 100 UNITS/1 ML IV ONE (22:27)
--- NOTE | 2019-05-10 22:27 | Emergency Department Report ---
ED General Adult HPI - General Chief complaint: Eye Problems Stated complaint: BLURRED VISION,HYPERGLY Time Seen by Provider: 05/10/19 19:41 Source: patient, RN notes reviewed, old records reviewed Mode of arrival: Ambulatory Limitations: No Limitations - History of Present Illness Initial comments: Patient is a 34-year-old gentleman who I have evaluated in the past. His primary care doctor is Dr. Gabriel. He has a history of diabetes, hypertension an d renal insufficiency. Patient has been admitted to this hospital in the past for diabetic ketoacidosis. The patient presents to the ER with a complaint of nontraumatic and initially painless binocular blurry vision and fuzzy vision, present for a few days. He wears glasses but not contact lenses. He indicates his symptoms are constant. They do not have exacerbating or relieving factors. The patient indicates that he sees blurred outlines, however, does not see spots, he does not see flashes of light. He does not have complete or partial visual loss, he is only seen with less clarity than usual. Since being in the emergency room, he developed a frontal headache, which is not sudden or thunderclap in nature. The headache is not maximal in intensity within an hour. There is no vomiting. He is quite anxious. He also endorses chronic bilateral plantar foot pain, and indicates that this typically improves with gabapentin. There is no weakness, numbness, facial droop, slurred speech, or ataxia. -: Gradual Severity scale (0 -10): 6 Quality: other Consistency: other Improves with: other Worsens with: other Associated Symptoms: other - Related Data Previous Rx's Medication Instructions Recorded Last Taken Type lisinopriL [Zestril TAB] 20 mg PO QDAY #30 tablet 04/07/17 07/07/18 Rx Insulin Glargine [Lantus VIAL] 25 unit SUB-Q QHS #1 vial 07/10/18 Unknown Rx Insulin Lispro [HumaLOG VIAL] 0 units SQ AC #1 vial 07/10/18 Unknown Rx Insulin Lispro [HumaLOG VIAL] 7 units SQ AC #1 vial 07/10/18 Unknown Rx Gabapentin 100 mg PO Q8HR #90 capsule 02/12/19 Unknown Rx Insulin Glargine [Lantus VIAL] 40 units SUB-Q QHS #5 vial 02/12/19 Unknown Rx Insulin Lispro 10 unit SQ AC #5 vial 02/12/19 Unknown Rx Allergies Allergy/AdvReac Type Severity Reaction Status Date / Time Penicillins Allergy Unknown Verified 06/25/16 07:10 ED Review of Systems ROS: Stated complaint: BLURRED VISION,HYPERGLY Other details as noted in HPI Constitutional: denies: fever Eyes: vision change. denies: eye pain, eye discharge ENT: denies: congestion Respiratory: denies: wheezing Cardiovascular: denies: syncope Gastrointestinal: denies: nausea, vomiting Genitourinary: denies: dysuria Skin: denies: lesions Neurological: headache. denies: weakness, numbness, paresthesias, confusion Psychiatric: anxiety ED Past Medical Hx - Past Medical History Previous Medical History?: Yes Hx Hypertension: Yes Hx Congestive Heart Failure: No Hx Diabetes: Yes Hx Asthma: No Hx COPD: No - Surgical History Additional Surgical History: "chest surgery" - Social History Smoking Status: Never Smoker Substance Use Type: None - Medications Home Medications: Home Medications Medication Instructions Recorded Confirmed Last Taken Type lisinopriL [Zestril TAB] 20 mg PO QDAY #30 tablet 04/07/17 07/09/18 07/07/18 Rx Insulin Glargine [Lantus VIAL] 25 unit SUB-Q QHS #1 vial 07/10/18 Unknown Rx Insulin Lispro [HumaLOG VIAL] 0 units SQ AC #1 vial 07/10/18 Unknown Rx Insulin Lispro [HumaLOG VIAL] 7 units SQ AC #1 vial 07/10/18 Unknown Rx Gabapentin 100 mg PO Q8HR #90 capsule 02/12/19 Unknown Rx Insulin Glargine [Lantus VIAL] 40 units SUB-Q QHS #5 vial 02/12/19 Unknown Rx Insulin Lispro 10 unit SQ AC #5 vial 02/12/19 Unknown Rx ED Physical Exam - General Limitations: No Limitations General appearance: alert, anxious - Head Head exam: Present: atraumatic, normocephalic - Eye Eye exam: Present: normal appearance, PERRL, EOMI. Absent: scleral icterus, conjunctival injection, nystagmus, periorbital swelling, periorbital tenderness Pupils: Present: other (visual acuity intact to finger counting, color perception and reading at a close distance. There is no direct or consensual photophobia. There is no fluorescein uptake, and there is no Sofia sign on force and examination.). Absent: irregular, unequal - ENT ENT exam: Present: normal exam, normal orophraynx, mucous membranes moist, TM's normal bilaterally, normal external ear exam - Neck Neck exam: Present: normal inspection, full ROM. Absent: tenderness, meningismus - Respiratory Respiratory exam: Present: normal lung sounds bilaterally. Absent: respiratory distress - Cardiovascular Cardiovascular Exam: Present: normal rhythm, tachycardia, normal heart sounds. Absent: systolic murmur, diastolic murmur, rubs, gallop - GI/Abdominal GI/Abdominal exam: Present: soft. Absent: distended, tenderness, guarding, rebound, rigid, pulsatile mass - Rectal Rectal exam: Present: deferred - Extremities Exam Extremities exam: Present: normal inspection, full ROM, other (2+ pulses noted in the bilateral upper and lower extremities. There is no long bony tenderness. The pelvis is stable. The muscular compartments are soft. There is no palpable cord. There is no redness, pus or streaking.). Absent: calf tenderness - Back Exam Back exam: Present: normal inspection, full ROM. Absent: tenderness, CVA tenderness (R), CVA tenderness (L), paraspinal tenderness, vertebral tenderness - Neurological Exam Neurological exam: Present: alert, oriented X3, normal gait, other (there is no facial droop. The tongue is midline. The extraocular movements are intact bilaterally. There is 5/5 strength in the bilateral upper and lower extremities. Sensation is intact to light touch in the bilateral upper and lower extremities. Hearing is intact. Tongue is midline. Speech is fluid, lucent and intact. Appropriate thought content. V1, V2, V3 intact bilaterally. Walks with a steady gait. There is no past-pointing. There is normal [id number]. There is a negative Romberg examination.). Absent: motor sensory deficit - Psychiatric Psychiatric exam: Present: anxious - Skin Skin exam: Present: warm, dry, intact, normal color. Absent: rash ED Course Vital Signs 05/10/19 05/10/19 05/10/19 19:35 19:42 21:06 Temperature 99.0 F 99 F Pulse Rate 133 H 135 H 116 H Respiratory 18 18 24 Rate Blood Pressure 156/109 156/109 Blood Pressure 150/110 [Left] O2 Sat by Pulse 99 99 97 Oximetry 05/10/19 05/10/19 05/10/19 22:01 23:18 23:44 Temperature Pulse Rate 115 H 140 H 138 H Respiratory 20 20 Rate Blood Pressure 133/85 Blood Pressure 150/112 137/96 [Left] O2 Sat by Pulse 97 99 Oximetry 05/10/19 05/11/19 05/11/19 23:54 00:18 01:19 Temperature Pulse Rate 119 H 128 H 109 H Respiratory 28 H 20 Rate Blood Pressure 127/89 Blood Pressure 133/94 130/96 [Left] O2 Sat by Pulse 99 98 Oximetry - Reevaluation(s) Reevaluation #1: 05/10/19 23:13 Differential diagnosis, including but not limited to: Diabetic retinopathy, retinal vein thrombosis, retinal artery thrombosis, vitreous detachment, retinal detachment, migraine headache, tension headache, cluster headache, anxiety, hysterical blindness Assessment and plan: 34-year-old gentleman with a complaint of painless binocular blurry vision and fuzzy vision. He is afebrile with reassuring vital signs and clinically sober, although he is extremely anxious. Objectively speaking, pupils equally reactive to light bilaterally, with no direct or consensual photophobia, I did not detect an afferent pupillary defect, there is negative Sofia sign and negative forcing uptake, intraocular pressure was 10 mmHg bilaterally, bedside ocular ultrasound showed no evidence of posterior chamber fluid collection, lens dislocation or retinal detachment, e xtraocular movements are intact bilaterally, without deficits, there is no indication of intranuclear ophthalmoplegia. The remainder of his physical exam is unremarkable, with GCS 15, NIH score of 0. There are no posterior cerebellar signs on his neurologic examination. He will need to follow closely with an outpatient tmd teacher. May have a component of tension headache, cluster headache, migraine headache or anxiety- related headache, also endorsing pain secondary to chronic diabetic neuropathy, so we will treat all these. He is extremely anxious, so he is medicated with Ativan. Reevaluation #2: 05/11/19 00:43 CT scan of the brain is negative. Patient has been persistently tachycardic, additional history obtained from patient and family. Patient supposed to be on carvedilol, and is noncompliant. Received a few rounds of IV metoprolol, tachycardia improved, heart rate now 109 bpm. He is sleeping comfortably on his stretcher, and in no acute distress. As per patient and family, no DVT or pulmonary embolism risk factors, and there was no endorsement of chest pain, shortness of breath, or exertional dyspnea He'll need to follow up with outpatient primary care doctor for his hyperglycemia and elevated blood pressure He will need to follow up with outpatient ophthalmology. ED Medical Decision Making - Lab Data Result diagrams: 05/10/19 19:53 05/10/19 19:53 Vital Signs 05/10/19 05/10/19 05/10/19 19:35 19:42 21:06 Temperature 99.0 F 99 F Pulse Rate 133 H 135 H 116 H Respiratory 18 18 24 Rate Blood Pressure 156/109 156/109 Blood Pressure 150/110 [Left] O2 Sat by Pulse 99 99 97 Oximetry 05/10/19 22:01 Temperature Pulse Rate 115 H Respiratory 20 Rate Blood Pressure Blood Pressure 150/112 [Left] O2 Sat by Pulse 97 Oximetry Lab Results 05/10/19 05/10/19 05/10/19 Range/Units 19:48 19:53 19:53 WBC 5.2 (4.5-11.0) K/mm3 RBC 4.91 (3.65-5.03) M/mm3 Hgb 15.0 (11.8-15.2) gm/dl Hct 43.6 (35.5-45.6) % MCV 89 (84-94) fl MCH 31 (28-32) pg MCHC 34 (32-34) % RDW 13.4 (13.2-15.2) % Plt Count 240 (140-440) K/mm3 Lymph % (Auto) 36.9 H (13.4-35.0) % [place] % (Auto) 10.2 H (0.0-7.3) % Eos % (Auto) 1.8 (0.0-4.3) % Baso % (Auto) 0.9 (0.0-1.8) % Lymph # 1.9 (1.2-5.4) K/mm3 [place] # 0.5 (0.0-0.8) K/mm3 Eos # 0.1 (0.0-0.4) K/mm3 Baso # 0.0 (0.0-0.1) K/mm3 Seg Neutrophils % 50.2 (40.0-70.0) % Seg Neutrophils # 2.6 (1.8-7.7) K/mm3 VBG pH (7.320-7.420) Sodium 137 (137-145) mmol/L Potassium 4.0 (3.6-5.0) mmol/L Chloride 97.4 L (98-107) mmol/L Carbon Dioxide 26 (22-30) mmol/L Anion Gap 18 mmol/L BUN 15 (9-20) mg/dL Creatinine 1.2 (0.8-1.5) mg/dL Estimated GFR > 60 ml/min BUN/Creatinine Ratio 13 % Glucose 366 H (75-100) mg/dL POC Glucose 284 H (70-105) Calcium 8.9 (8.4-10.2) mg/dL Total Bilirubin 0.50 (0.1-1.2) mg/dL AST 17 (5-40) units/L ALT 18 (7-56) units/L Alkaline Phosphatase 117 (35-129) units/L Total Protein 6.7 (6.3-8.2) g/dL Albumin 4.0 (3.9-5) g/dL Albumin/Globulin Ratio 1.5 % Urine Color (Yellow) Urine Turbidity (Clear) Urine pH (5.0-7.0) Ur Specific [place] (1.003-1.030) Urine Protein (Negative) mg/dL Urine Glucose (UA) (Negative) mg/dL Urine Ketones (Negative) mg/dL Urine Blood (Negative) Urine Nitrite (Negative) Urine Bilirubin (Negative) Urine Urobilinogen (<2.0) mg/dL Ur Leukocyte Esterase (Negative) Urine WBC (Auto) (0.0-6.0) /HPF Urine RBC (Auto) (0.0-6.0) /HPF U Epithel Cells (Auto) (0-13.0) /HPF Urine Mucus /HPF 05/10/19 05/10/19 05/10/19 Range/Units 19:53 20:04 23:08 WBC (4.5-11.0) K/mm3 RBC (3.65-5.03) M/mm3 Hgb (11.8-15.2) gm/dl Hct (35.5-45.6) % MCV (84-94) fl MCH (28-32) pg MCHC (32-34) % RDW (13.2-15.2) % Plt Count (140-440) K/mm3 Lymph % (Auto) (13.4-35.0) % [place] % (Auto) (0.0-7.3) % Eos % (Auto) (0.0-4.3) % Baso % (Auto) (0.0-1.8) % Lymph # (1.2-5.4) K/mm3 [place] # (0.0-0.8) K/mm3 Eos # (0.0-0.4) K/mm3 Baso # (0.0-0.1) K/mm3 Seg Neutrophils % (40.0-70.0) % Seg Neutrophils # (1.8-7.7) K/mm3 VBG pH 7.360 (7.320-7.420) Sodium (137-145) mmol/L Potassium (3.6-5.0) mmol/L Chloride (98-107) mmol/L Carbon Dioxide (22-30) mmol/L Anion Gap mmol/L BUN (9-20) mg/dL Creatinine (0.8-1.5) mg/dL Estimated GFR ml/min BUN/Creatinine Ratio % Glucose (75-100) mg/dL POC Glucose 298 H (70-105) Calcium (8.4-10.2) mg/dL Total Bilirubin (0.1-1.2) mg/dL AST (5-40) units/L ALT (7-56) units/L Alkaline Phosphatase (35-129) units/L Total Protein (6.3-8.2) g/dL Albumin (3.9-5) g/dL Albumin/Globulin Ratio % Urine Color Yellow (Yellow) Urine Turbidity Clear (Clear) Urine pH 7.0 (5.0-7.0) Ur Specific [place] 1.033 H (1.003-1.030) Urine Protein <15 mg/dl (Negative) mg/dL Urine Glucose (UA) >=500 (Negative) mg/dL Urine Ketones Neg (Negative) mg/dL Urine Blood Neg (Negative) Urine Nitrite Neg (Negative) Urine Bilirubin Neg (Negative) Urine Urobilinogen 4.0 (<2.0) mg/dL Ur Leukocyte Esterase Neg (Negative) Urine WBC (Auto) 1.0 (0.0-6.0) /HPF Urine RBC (Auto) 2.0 (0.0-6.0) /HPF U Epithel Cells (Auto) < 1.0 (0-13.0) /HPF Urine Mucus Few /HPF - Radiology Data Radiology results: report reviewed, image reviewed ct head negative Critical care attestation.: If time is entered above; I have spent that time in minutes in the direct care of this critically ill patient, excluding procedure time. ED Disposition Clinical Impression: Blurry vision, Hyperglycemia Disposition: DC- TO HOME OR SELFCARE Is pt being admited?: No Does the pt Need Aspirin: No Condition: Stable Additional Instructions: Recommend the patient follow up with an tmd teacher as soon as possible to further evaluate bilateral blurry vision. In addition, recommend that patient adhere to a diabetic appropriate diet, and have better sugar control. Long-term complications of high blood sugar/hyperglycemia may result in disability, including stroke, heart attacks, blindness and loss of vision Please follow up with your primary care doctor for high blood sugar within the next 7-10 days. Return to emergency room right away with new, worsening or different symptoms not present on initial emergency room evaluation. Referrals: MAUREEN BARNEY MD [Staff Physician] - 3-5 Days TOSHIA JANE MD [Staff Physician] - 3-5 Days JHONY BOWMAN MD [Staff Physician] - 3-5 Days MARVIN EDWARDS MD [Staff Physician] - 3-5 Days JOYCELYN FLORES MD [Staff Physician] - 3-5 Days MARVIN HUYNH MD [Staff Physician] - 3-5 Days [facility] [Provider Group] - 3-5 Days [facility] [Provider Group] - 3-5 Days Forms: Accompanied Note, Work/School Release Form(ED)
--- NOTE | 2019-05-10 23:16 | Cat Scan Report ---
CT HEAD WITHOUT CONTRAST INDICATION: frontal headache, blurry vision TECHNIQUE: All CT scans at this location are performed using CT dose reduction for ALARA by means of automated exposure control. COMPARISON: None available. FINDINGS: BRAIN: No hemorrhage or mass effect are seen. No evidence of acute infarction is noted. ORBITS: Normal as visualized. SOFT TISSUES OF HEAD: Normal. CALVARIUM: Normal. VISUALIZED PARANASAL SINUSES AND MASTOID AIR CELLS: Moderate mucosal thickening is seen throughout th e ethmoid air cells bilaterally but no air-fluid levels are seen in other visualized sinuses are lucrecia r. ADDITIONAL FINDINGS: None. IMPRESSION: No acute intracranial abnormality. Signer Name: Stan Lopez MD Signed: 05/10/2019 11:11 PM Workstation Name: [id number]
[2019-05-10] MEDS ORDERED: METOPROLOL TARTRATE 5 MG/5 ML INJ IV ONE ×2 (23:39→23:41)
[2019-05-11] MEDS ORDERED: METOPROLOL TARTRATE 5 MG/5 ML INJ IV ONE (00:17)
[2019-05-11 01:20] VITALS: BP 130/96
== END 2019-05-11 02:26 | disposition home or self-care (01) ==
LOC: ED 19:29
DX: H53.8 Other visual disturbances (principal); E11.65 Type 2 diabetes mellitus with hyperglycemia; I10 Essential (primary) hypertension; Z79.899 Other long term (current) drug therapy; Z88.0 Allergy status to penicillin
CPT/HCPCS: 36415; 70450; 80053; 81001; 82805; 82962; 85025; 96361; 96374; 96375; 96376; 99285; J1200; J2060; J2765; J7030; J1815